=== PATIENT | female | born 1955 | race Caucasian/White ===

== ENCOUNTER 2019-08-25 05:30 | Emergency (ER) | payer MEDICARE, SELFPAY ==
[2019-08-25] VITALS (7 sets, daily range): BP systolic 141–189; BP diastolic 70–72; PULSE 62–79; RESP 16–18; TEMP 36.5; O2SAT 98–100
--- NOTE | ~2019-08-25 | CT_ITS ---
EXAMINATION: CT abdomen pelvis w con DATE: 08/25/2019 06:55 INDICATION: Right flank pain. TECHNIQUE: Computed tomography (CT) of the abdomen and pelvis was performed with 100 mL Omnipaque 350 intravenous contrast. Automated exposure control and iterative reconstruction technique were employe d. The dose-length product was 275.31 mGy-cm. COMPARISON: None. FINDINGS: The visualized portions of the lung bases demonstrate mild atelectasis. No pleural effusion . The heart size is normal. No pericardial effusion. There is moderate intrahepatic biliary duct dila tation and dilatation of the common duct to 15 mm. There are changes of cholecystectomy. The spleen, pancreas, and adrenal glands are normal. There is moderate right hydronephrosis and hydroureter. Ther e is a 2 mm stone at right ureterovesicular junction. There is asymmetric edema around right kidney. Left kidney is normal. There are no dilated loops of bowel. The appendix is normal. There are no path ologically enlarged lymph nodes. There is no free intraperitoneal fluid. There is mild lumbar spondyl osis. IMPRESSION: 1. 2 mm stone at right ureterovesicular junction with moderate right hydronephrosis and hydroureter. 2. Moderate intrahepatic and extrahepatic biliary duct dilatation status post cholecystectomy, likely not clinically significant given the normal liver function tests. Reviewed, dictated and finalized at location A. IMPRESSION: 1. 2 mm stone at right ureterovesicular junction with moderate right hydronephr osis and hydroureter. 2. Moderate intrahepatic and extrahepatic biliary duct dilatation status post c holecystectomy, likely not clinically significant given the normal liver functi on tests.
--- NOTE | ~2019-08-25 | XR_ITS ---
EXAMINATION: XR abdomen/kub 1V DATE: 08/25/2019 07:43 INDICATION: Kidney stone. TECHNIQUE: A supine view of the abdomen was obtained. COMPARISON: CT abdomen and pelvis 08/25/2019 FINDINGS: There are no dilated loops of bowel. There is contrast in the bladder. There is no visible urolithiasis. Surgical clips in the right upper quadrant are likely from cholecystectomy. IMPRESSION: 1. No visible urolithiasis. Reviewed, dictated and finalized at location A. IMPRESSION: 1. No visible urolithiasis.
--- NOTE | 2019-08-25 05:32 | ED.FEMALEGU ---
HPI - Female Genitourinary General Chief complaint: Urogenital-Female <Colleen Pena MD - Last Filed: 08/25/19 06:43> Stated complaint: Right flank pain, UTI <Colleen Pena MD - Last Filed: 08/25/19 06:43> Time Seen by Provider: 08/25/19 05:32 <Colleen Pena MD - Last Filed: 08/25/19 06:43> Source: patient and family <Colleen Pena MD - Last Filed: 08/25/19 06:43> Mode of arrival: ambulatory <Colleen Pena MD - Last Filed: 08/25/19 06:43> Limitations: no limitations <Colleen Pena MD - Last Filed: 08/25/19 06:43> History of Present Illness HPI Narrative: Patient is a 64-year-old female who presents for evaluation of right-sided flank pain and dysuria. Patient reportedly initially experienced dysuria and frequency 3 weeks ago, tried some at home remedies including Pyridium and cranberry juice which typically resolve simple urinary tract infections, and did not resolve her symptoms. Patient then went to a [facility] clinic, had blood work and urinalysis sent and 4 days later they called in a prescription for ciprofloxacin to the patient's primary care provider. The patient finished a 7-day prescription of ciprofloxacin 1 week ago, and has had no improvement since finishing that medication. Patient denies fever, chills, nausea or vomiting. She reports aching right flank pain which at times is severe in nature as well as suprapubic pain, dysuria and frequency. She denies hematuria, no history of nephrolithiasis. <Colleen Pena MD - Last Filed: 08/25/19 06:43> Related Data Home medications: Home Medications Medication Instructions Recorded Confirmed Vitamin D2 02/14/19 cyanocobalamin (vitamin B-12) 02/14/19 fludrocortisone mg 02/14/19 gabapentin 02/14/19 hydrocodone-acetaminophen 02/14/19 insulin lispro [Humalog U-100 02/14/19 Insulin] levothyroxine 02/14/19 <Colleen Pena MD - Last Filed: 06/19/20 06:43> Allergies/Adverse reactions: Allergies Allergy/AdvReac Type Severity Reaction Status Date / Time codeine AdvReac Unknown HYPOTENSION Verified 02/08/17 20:43 <Colleen Pena MD - Last Filed: 08/25/19 06:43> Review of Systems Review of Systems: Narrative: CONSTITUTIONAL: Denies fever, chills, or sweats. CARDIOVASCULAR: Denies chest pain, palpitations, or edema. RESPIRATORY: Denies cough or dyspnea. GASTROINTESTINAL: Reports suprapubic abdominal pain, denies nausea or vomiting GENITOURINARY: Reports dysuria and frequency SKIN: Denies rash or itching. MUSCULOSKELETAL: Reports right-sided back pain NEUROLOGIC: Denies headache, numbness, or weakness. <Colleen Pena MD - Last Filed: 08/25/19 06:43> [facility] Past Medical History Medical History: Medical History (Updated 08/25/19 @ 06:41 by Colleen Pena MD) Arthritis Diabetic retinopathy Fractured coccyx Gastroparesis Glaucoma Hypothyroidism Irritable bowel syndrome Peripheral neuropathy Pernicious anemia Pneumonia Postural hypotension Stage III chronic kidney disease TIA (transient ischemic attack) Type 1 diabetes <Colleen Pena MD - Last Filed: 08/25/19 06:43> Surgical History Surgical History: Surgical History (Updated 08/25/19 @ 06:00 by Colleen Pena MD) History of partial hysterectomy Hx of cholecystectomy <Colleen Pena MD - Last Filed: 08/25/19 06:43> Social History Social History: Social History (Updated 08/25/19 @ 06:00 by Colleen Pena MD) Smoking status: Current every day smoker Tobacco type: cigarettes Alcohol intake: never Substance use: never Living arrangements: with family Gender identity (if verbalized by the patient): Female <Colleen Pena MD - Last Filed: 08/25/19 06:43> Exam Narrative: Exam Narrative: GENERAL: Awake, alert, conversant HEAD: Normocephalic, atraumatic. EYES: PERRLA and EOMI. ENT: Nares clear, no rhinorrhea or epistaxis. Mucous membranes moist. NECK
[2019-08-25] MEDS: MORPHINE SULFATE 2 MG/ML INJ IV PUSH (06:03)
[2019-08-25] MEDS: ONDANSETRON INJ 4 MG/2 ML VIAL IV PUSH (06:04)
[2019-08-25] MEDS: ACETAMINOPHEN 500 MG TABLET 1000 MG PO (06:04)
[2019-08-25 06:09] LABS: Eosinophils Absolute Auto 0.1 K/mm3 (0-0.3); Eosinophils Percent Auto 2.2 % (0-4.4); Hemoglobin 11.3 g/dL (12.0-15.0); Immature Granulocyte Absolute 0.01 K/mm3 (0.00-0.031); Immature Granulocyte Percent A 0.2 % (0-0.5); Lymphocytes Absolute Auto 1.87 K/mm3 (0.9-3.2); Lymphocytes Percent Auto 45.7 % (18.3-44.2); Mean Corpuscular HGB Conc 31.4 g/dl (32-36); Mean Corpuscular Volume 92.5 fl (80-100); Mean Platelet Volume 11.3 fl (7.4-10.4); Monocytes Absolute Auto 0.4 K/mm3 (0.1-0.6); Monocytes Percent Auto 10.5 % (2.6-8.5); Neutrophils Absolute Auto 1.7 K/mm3 (1.3-6.7); Neutrophils Percent Auto 41.4 % (45.5-73.1); Platelet Count Result 212 k/mm3 (150-375); Red Blood Count 3.89 M/mm3 (4.2-5.4); Red Cell Distribution Width 14.6 % (11.5-14.5); White Blood Count 4.1 K/mm3 (4.5-10.0)
[2019-08-25 06:18] LABS: Add Urine Microscopic? YES; Appearance Urine Clear (Clear); Bilirubin Urine Negative (Negative); Blood Urine 1+ (Negative); Color Urine Yellow (Yellow); Glucose Urine UA 1+ mg/dL (Negative); Ketones Urine Negative (Negative); Leukocyte Esterase Ur Negative LEU/UL (Negative); Mucus Urine Rare /lpf; Nitrate Urine Negative (Negative); Protein Urine 2+ mg/dL (Negative); Specific Grav Ur 1.014 (1.001-1.035); Squamous Epithelial Cell Urine Few /hpf (Few); Urobilinogen Urine Negative mg/dL (<2.0)
[2019-08-25 06:21] LABS: Alanine Aminotransferase 11 U/L (4-35); Albumin Level 4.1 g/dL (3.5-5.1); Alkaline Phosphatase 118 U/L (38-126); Aspartate Amino Transferase 25 U/L (14-36); Bilirubin,Total 0.4 mg/dL (0.2-1.3); Blood Urea Nitrogen 16 mg/dL (7-17); Carbon Dioxide 26 mmol/L (22-30); Chloride 105 mmol/L (98-107); Estimated CRCL calculation 27 ml/min; Estimated Glomerular Filt Rate 33; Glucose 263 mg/dL (65-105); Potassium 3.4 mmol/L (3.4-5.0); Sodium 137 mmol/L (137-145)
[2019-08-25] MEDS: MORPHINE SULFATE 4 MG/ML INJ IV PUSH (06:28)
[2019-08-25 06:44] LABS: Lactic Acid Reflex 1.1 mmol/L (0.7-2.1)
[2019-08-25] MEDS: TAMSULOSIN HCL 0.4 MG CAPSULE PO (08:20)
--- NOTE | 2019-08-25 08:25 | WPDURCON ---
Assessment and Plan Assessment and plan (1) Right ureteral stone: Code(s): N20.1 - Calculus of ureter Status: Acute Assessment and Plan: Tiny right distal ureteral stone without ongoing signs of concurrent urinary tract infection. We will attempt to manage this as an outpatient in the expectation that she will spontaneously pass this small stone. She is to go home with instructions for hydration and oral analgesics. Follow-up arrange a follow-up visit via telehealth early next week. If she continues to have problems we will schedule right ureteroscopy with stone extraction. Urology Consult Note HPI Date Seen: 08/25/19 Primary Care Provider: Bin Almanzar, Consult Narrative Narrative: Josh Marie is a 64 year old female without prior significant urological history but who has been struggling with intermittent lower urinary tract infection symptoms over the past 2 weeks. This morning she awoke with moderately severe right flank pain radiating to her lower quadrant. She has had no fevers chills significant nausea vomiting or hematuria. Imaging in the ER revealed a 2 mm right ureteral vesicle junction stone. Review of Systems Cardiovascular: Cardiovascular: Denies chest pain, Denies lightheadedness, Denies palpitations and Denies dyspnea Respiratory: Respiratory: Denies dyspnea Gastrointestinal: Gastrointestinal: Denies diarrhea, Denies nausea and Denies vomiting Genitourinary: Genitourinary: Denies hematuria and Denies dysuria Endocrine: Endocrine: Denies palpitations PMFSH Past Medical History Medical History Arthritis Diabetic retinopathy Fractured coccyx Gastroparesis Glaucoma Hypothyroidism Irritable bowel syndrome Peripheral neuropathy Pernicious anemia Pneumonia Postural hypotension Stage III chronic kidney disease TIA (transient ischemic attack) Type 1 diabetes Surgical History Surgical History History of partial hysterectomy Hx of cholecystectomy Social History Social History Smoking status: Current every day smoker Tobacco type: cigarettes Alcohol intake: never Substance use: never Living arrangements: with family Gender identity (if verbalized by the patient): Female Meds Home Medications and Allergies Home Medications Medication Instructions Recorded Confirmed Type Vitamin D2 02/14/19 History cyanocobalamin (vitamin B-12) 02/14/19 History fludrocortisone mg 02/14/19 History gabapentin 02/14/19 History hydrocodone-acetaminophen 02/14/19 History insulin lispro [Humalog U-100 02/14/19 History Insulin] levothyroxine 02/14/19 History hydrocodone-acetaminophen 1 tablet PO Q4H PRN #12 tablet 08/25/19 Rx tamsulosin [Flomax] 0.4 mg PO DAILY #5 cap 08/25/19 Rx Allergies Allergy/AdvReac Type Severity Reaction Status Date / Time codeine AdvReac Unknown HYPOTENSION Verified 02/08/17 20:43 Vital Signs Vital Signs - 24 hr 08/25/19 05:41 08/25/19 06:33 08/25/19 06:34 Temperature 97.7 F 97.7 F 97.7 F Pulse Rate 79 Respiratory Rate 18 Blood Pressure 189/71 H Pulse Oximetry 99 08/25/19 06:48 08/25/19 06:58 08/25/19 07:30 Temperature 97.7 F Pulse Rate 62 72 Respiratory Rate 16 16 Blood Pressure 181/72 H 141/72 H Pulse Oximetry 98 99 Exam Const: General: no acute distress Resp: Effort & Inspection: normal respiratory effort GI: Inspection: non-distended GI Palp: No abdominal tenderness and No Guarding due to palpation present (GI) Auscultation: normal bowel sounds Results Labs CBC & Chem 7: 08/25/19 06:02 08/25/19 06:02 Labs: Short CBC 08/25/19 Range/Units 06:02 WBC 4.1 L (4.5-10.0) K/mm3 Hgb 11.3 L (12.0-15.0) g/dL Hct 36.0 L (37.0-47.0) % Plt Count 212 (150-375) k/mm3
== END 2019-08-25 08:20 | disposition home or self-care (01) ==
PROVIDERS: Emergency Medicine; Emergency Provider Emergency Medicine; PCP Internal Medicine
DX: N13.2 Hydronephrosis with renal and ureteral calculous obstruction (principal); M19.90 Unspecified osteoarthritis, unspecified site; E10.319 Type 1 diabetes mellitus with unspecified diabetic retinopathy without macular edema; E10.43 Type 1 diabetes mellitus with diabetic autonomic (poly)neuropathy; E10.22 Type 1 diabetes mellitus with diabetic chronic kidney disease; E10.42 Type 1 diabetes mellitus with diabetic polyneuropathy; K31.84 Gastroparesis; N18.3 Chronic kidney disease, stage 3 (moderate); Z79.4 Long term (current) use of insulin; K58.9 Irritable bowel syndrome, unspecified; H40.9 Unspecified glaucoma; E03.9 Hypothyroidism, unspecified; F17.210 Nicotine dependence, cigarettes, uncomplicated; Z86.73 Personal history of transient ischemic attack (TIA), and cerebral infarction without residual deficits
CPT/HCPCS: 36415; 74018; 74177; 80053; 81001; 83605; 85025; 87040; 96361; 96365; 96375; 99284; A9270; J0696; J2270; J2405; J7030; Q9967

== ENCOUNTER 2020-02-06 18:48 | Observation (INO) | payer MEDICARE, SELFPAY ==
--- NOTE | ~2020-02-06 | CT_ITS ---
EXAMINATION: CT abdomen pelvis w con DATE: 02/06/2020 23:26 INDICATION: Abdominal pain TECHNIQUE: Computed tomography (CT) of the abdomen and pelvis was performed with 100 mL Omnipaque-350 intravenous contrast. Automated exposure control and iterative reconstruction technique were employe d. The dose-length product was 214.08 mGy-cm. COMPARISON: 08/25/2019 FINDINGS: Mild bibasilar atelectasis, left greater than right. Heart size is normal. No pericardial or pleural effusion. No significant interval change in moderate intra and extrahepatic biliary ductal dilation w ith the common bile duct dilated to 13 mm. This may be related to prior cholecystectomy with surgical clips at the gallbladder fossa. New geographic regions of absent enhancement along the caudal and an terior margin of the spleen consistent with splenic infarcts. No appreciable associated atrophy sugge sting this is relatively acute. Contrast is seen within the splenic artery although there is some ath erosclerotic plaque along the midportion of the tortuous artery. Pancreas, bilateral adrenal glands a nd kidneys are normal. Bowels including the appendix are normal. Bladder is normal. The uterus is not identified and has likely been surgically resected. Bilateral adnexa are unremarkable. No free intra peritoneal gas or fluid. No pathologically enlarged abdominal or pelvic lymphadenopathy. There is linda cified atherosclerosis of the aorta and many of the other arteries. Sacralized L5 segment. IMPRESSION: 1. 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 2. Unchanged moderate intra and extra hepatic biliary ductal dilation likely related to prior cholecy stectomy. Reviewed, dictated and finalized at location A. K PRESS OPERATOR IMPRESSION: 1. 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 2. Unchanged moderate intra and extra hepatic biliary ductal dilation likely re lated to prior cholecystectomy.
--- NOTE | ~2020-02-06 | CT_ITS ---
EXAMINATION: CTA chest abdomen pelvis DATE: 02/09/2020 14:22 INDICATION: Splenic infarct. TECHNIQUE: Computed tomographic angiography (CTA) of the chest, abdomen, and pelvis was performed wit h 100 mL Omnipaque-350 intravenous contrast. Automated exposure control and iterative reconstruction technique were employed. The dose-length product was 290.35 mGy-cm. Maximum intensity projection 3D-r econstructions of the aorta and other arteries were constructed by the technologist on a separate wor kstation. COMPARISON: CT abdomen and pelvis 02/06/2020, 08/25/19 FINDINGS: CHEST CTA: There is mild atelectasis in the lungs. There is mild scarring at the lung apices. There is a cluster of nodules measuring up to 4 mm in left upper lobe, likely benign. There is a trace left pleural eff usion. The heart size is normal. There are coronary artery calcifications. No pericardial effusion. T here is no pulmonary embolus. There is mild aortic atherosclerosis. ABDOMEN AND PELVIS CTA: There is mild intrahepatic biliary duct dilatation, and the common duct is dilated to 15 mm, stable f rom 08/25/19 and likely not clinically significant give the normal total bilirubin and alkaline phosph atase. There are changes of cholecystectomy. There are peripheral areas of low-attenuation in the spl een, consistent with infarcts. The pancreas and adrenal glands are normal. There is cortical thinning of the kidneys. There are no dilated loops of bowel. The appendix is normal. There are no pathologic ally enlarged lymph nodes. There is no free intraperitoneal fluid. There is mild aortic atheroscleros is. There is no significant stenosis of the celiac axis, superior mesenteric artery, renal arteries, or inferior mesenteric artery. There is mild lumbar spondylosis. IMPRESSION: 1. Splenic infarcts, stable from 02/06/20. Reviewed, dictated and finalized at location A. RIAL FLOW ENGINEER
[2020-02-06 19:37] VITALS: BP 138/67; PULSE 86; RESP 17; TEMP 36.2; O2SAT 96
[2020-02-06 19:54] LABS: Basophils Percent Auto 0.1 % (0.2-1.2); Eosinophils Percent Auto 0.4 % (0-4.4); Hematocrit 37.5 % (37.0-47.0); Hemoglobin 12.1 g/dL (12.0-15.0); Immature Granulocyte Absolute 0.03 K/mm3 (0.00-0.031); Immature Granulocyte Percent A 0.4 % (0-0.5); Lymphocytes Absolute Auto 1.56 K/mm3 (0.9-3.2); Lymphocytes Percent Auto 20.4 % (18.3-44.2); Mean Corpuscular HGB Conc 32.3 g/dl (32-36); Mean Corpuscular Hemoglobin 30.7 pg (26-34); Mean Corpuscular Volume 95.2 fl (80-100); Mean Platelet Volume 11.3 fl (7.4-10.4); Monocytes Absolute Auto 0.7 K/mm3 (0.1-0.6); Monocytes Percent Auto 9.7 % (2.6-8.5); Neutrophils Absolute Auto 5.3 K/mm3 (1.3-6.7); Platelet Count Result 152 k/mm3 (150-375); Red Blood Count 3.94 M/mm3 (4.2-5.4); Red Cell Distribution Width 12.6 % (11.5-14.5); White Blood Count 7.6 K/mm3 (4.5-10.0)
[2020-02-06 20:01] LABS: Alanine Aminotransferase 9 U/L (4-35); Albumin Level 3.8 g/dL (3.5-5.1); Alkaline Phosphatase 99 U/L (38-126); Anion Gap 3 mmol/L (8-16); Aspartate Amino Transferase 29 U/L (14-36); Bilirubin,Total 0.5 mg/dL (0.2-1.3); Blood Urea Nitrogen 20 mg/dL (7-17); Calcium 9.2 mg/dL (8.4-10.2); Carbon Dioxide 31 mmol/L (22-30); Chloride 106 mmol/L (98-107); Estimated CRCL calculation 29 ml/min; Estimated Glomerular Filt Rate 38; Glucose 102 mg/dL (65-105); Potassium 4.2 mmol/L (3.4-5.0); Sodium 140 mmol/L (137-145)
[2020-02-06 20:08] LABS: Lipase < 10 U/L (23-300)
[2020-02-06 20:11] LABS: Add Urine Microscopic? YES; Appearance Urine Clear (Clear); Bacteria Urine Trace /hpf; Bilirubin Urine Negative (Negative); Blood Urine Negative (Negative); Color Urine Yellow (Yellow); Glucose Urine UA Negative (Negative); Ketones Urine Negative (Negative); Leukocyte Esterase Ur Negative LEU/UL (Negative); Nitrate Urine Positive (Negative); Protein Urine 2+ mg/dL (Negative); Specific Grav Ur 1.015 (1.001-1.035); Squamous Epithelial Cell Urine Occasional /hpf (Few); Urobilinogen Urine Negative mg/dL (<2.0)
[2020-02-06 22:34] VITALS: BP 126/68; PULSE 71; RESP 18; TEMP 36.7; O2SAT 99
--- NOTE | 2020-02-06 23:34 | ED.GENADULT ---
HPI - General Adult General Chief complaint: Abdominal Pain Stated complaint: Left ABD pain since yesterday Time Seen by Provider: 02/06/20 22:50 Source: patient History of Present Illness HPI narrative: Patient is a 64 y/o female complaining of left upper abdominal pain starting yesterday. She rates her pain as 10/10. Pain medication helps with her pain slightly. She states that her pain is sharp with no radiation. She has no fever, vomiting, diarrhea or dysuria. Related Data Home Medications Medication Instructions Recorded Confirmed Vitamin D2 1 tablet BYMOUTH DAILY 02/14/19 02/07/20 cyanocobalamin (vitamin B-12) 1,000 mcg IM MONTHLY 02/14/19 02/07/20 gabapentin 600 mg PO TID 02/14/19 02/07/20 hydrocodone-acetaminophen 1 tablet PO Q6H PRN 02/14/19 02/07/20 insulin lispro [Humalog U-100 See Protocol SUBCUT PRN PRN 02/14/19 02/07/20 Insulin] levothyroxine 100 mcg PO DAILY 02/14/19 02/07/20 ferrous sulfate 324 mg PO DAILY 02/07/20 02/07/20 midodrine 5 mg PO BID 02/07/20 02/07/20 sodium chloride 1 g PO BID 02/07/20 02/07/20 Allergies Allergy/AdvReac Type Severity Reaction Status Date / Time codeine AdvReac Unknown HYPOTENSION Verified 02/08/17 20:43 Review of Systems Constitutional: Constitutional: Denies chills, Denies fever(s), Denies headache(s) and Denies weakness Eyes: Eyes: Denies blurry vision ENT: Denies headache(s) and Denies neck pain Cardiovascular: Cardiovascular: Denies chest pain and Denies dyspnea Respiratory: Respiratory: Denies cough and Denies dyspnea Gastrointestinal: Gastrointestinal: Reports abdominal pain, Denies diarrhea, Denies nausea and Denies vomiting Genitourinary: Genitourinary: Denies hematuria and Denies dysuria Musculoskeletal: Musculoskeletal: Denies back pain and Denies neck pain Neurologic: Denies headache(s) and Denies weakness [facility] Past Medical History Medical History Arthritis Diabetic retinopathy Dupuytren contracture Fractured coccyx Gastroparesis Glaucoma History of renal stone Hypothyroidism Multiple system atrophy Peripheral neuropathy Pernicious anemia Pneumonia Postural hypotension Stage III chronic kidney disease TIA (transient ischemic attack) Type 1 diabetes Surgical History Surgical History History of hand surgery History of partial hysterectomy vaginal partial hysterectomy Hx of cholecystectomy Laparoscopic cholecystectomy in 2004 Family History Family History Father Acute myocardial infarction Bladder cancer Mother Diabetes mellitus Sibling Diabetes mellitus Sibling Refractory anemia due to myelodysplastic syndrome Social History Social History Social History: Mrs. Marie lives at home with her in [place], [place]. 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 She is a current 2 pack per week smoker. She reports very infrequent alcohol use (1 glass of wine/year) and denies illicit substance use. She wishes to be a full code and she has designated her , Mahin Marie, and her son, Dennys Combs, as her surrogate medical decision makers. Smoking packs per day: 0.5 Smoking cigarettes per day: 10.0 Smoking status: Current every day smoker Tobacco type: cigarettes Alcohol intake: current Alcohol use details: Very infrequent - 1 glass of wine per year Substance use: never Substance use type: does not use Gender identity (if verbalized by the patient): Female Spiritual care concerns: No Exam Const: General: no acute distress and well developed Orientation/consciousness: oriented to person, oriented to place, oriented to time and patient oriented x3 HENMT: Head: normocephalic Ears: external ears normal General nose exam: Normal external nose present Eyes: General: appe
[2020-02-06] MEDS: KETOROLAC 15 MG/ML VIAL (*BKC) IV PUSH (23:44)
[2020-02-06] MEDS: SODIUM CHLORIDE 0.9% IV 1,000 ML 999 ML IV CONT (23:59)
[2020-02-06] MEDS: fentaNYL CITRATE INJ (*CRX) 100 MCG/2 ML VIAL 50 MCG IV PUSH (23:59)
[2020-02-07] VITALS (13 sets, daily range): BP systolic 118–155; BP diastolic 53–76; PULSE 58–91; RESP 16–18; TEMP 36.5–37.1; O2SAT 96–100; BMI 19.4
--- NOTE | 2020-02-07 | ECHO_ITS ---
Patient Info Name: Josh Marie Age: 64 years : 1955 Gender: Female Ht: 62 in Wt: 106 lbs BSA: 1.45 m2 HR: 70 bpm BP: 155 / 70 mmHg Heart Rhythm: Sinus Rhythm Technical Quality: Good Exam Date: 02/07/2020 1:30 PM Exam Location: [facility] Patient Status: Inpatient Admit Date: 02/07/2020 Staff Ordering Physician: Batsheva Pollock PA-C Field Agent: Justice Baeza RDCS Attending Provider: Batsheva Pollock PA-C Referring Physician: Phill ANDRADE; Exam Type: CA echo doppler color flow Study Info Indications I50.9 - Heart failure, unspecified Complete two-dimensional, color flow and Doppler transthoracic echocardiogram is performed. Strain analysis performed. History/Risk Factors Splenic artery infarct; CKD3, T1DM, Orthostatic HoTN. Summary 1. Left ventricular systolic function is normal, estimated at 55-60%. 2. There is mildly increased left ventricular wall thickness. 3. The left ventricular diastolic function is grade II diastolic dysfunction. 4. There is no aortic valve stenosis. 5. There is trace mitral valve regurgitation. 6. There is trace tricuspid valve regurgitation. 7. Mild pulmonary hypertension, estimated pulmonary arterial systolic pressure is 36 mmHg. Left Ventricle Left ventricular chamber dimension is normal. Left ventricular systolic function is normal, estimated at 55-60%. There is mildly increased left ventricular wall thickness. The left ventricular diastolic function is grade II diastolic dysfunction. Global longitudinal strain is normal at -21 %. Right Ventricle Right ventricular chamber dimension is normal. Right ventricular systolic function is normal. Left Atria Left atrial chamber dimension is normal. Right Atria Right atrial chamber dimension is normal. Aortic Valve The aortic valve is not well visualized. There is no aortic valve stenosis. There is no aortic valve regurgitation. Pulmonic Valve The pulmonic valve is not well visualized. There is trace pulmonic regurgitation. Mitral Valve The mitral valve has normal leaflets. There is trace mitral valve regurgitation. The mitral valve annulus is mildly calcified. Tricuspid Valve The tricuspid valve leaflets are normal. There is trace tricuspid valve regurgitation. Mild pulmonary hypertension, estimated pulmonary arterial systolic pressure is 36 mmHg. Pericardium/Pleural The pericardium appears normal. There is trivial pericardial effusion. Inferior Vena Cava Normal inferior vena cava with >50% collapse upon inspiration consistent with normal right atrial pressure, 5 mmHg. Aorta The aortic root size at the sinus of Valsalva is normal. Left Ventricular Outflow Tract Name Value Normal LVOT 2D LVOT Diameter 2.0 cm LVOT Doppler LVOT Peak Gradient 6 mmHg LVOT Mean Gradient 4 mmHg LVOT VTI 31 cm LVOT VTI/AV VTI Ratio 1.0 LVOT Stroke Volume 95 ml LVOT CO 6.3 l
--- NOTE | 2020-02-07 01:34 | PC.NURSE ---
SPOKE WITH DR WILSON CONCERNING THE PATIENTS CONCERNS ABOUT HER BLOOD SUGAR. AMP D50 ORDERED AND PATIENT TO BE INSTRUCTED TO TURN OFF PER PUMP.
--- NOTE | 2020-02-07 01:44 | ADMGEN ---
This patient, Josh Marie, was admitted to Medical Room 261-01. Patient/family oriented to hospital policies and general routines including ID bracelet, bed and alarms, visiting hours, pain management, procedures, bathroom and other care routines, personal items, smoking policy, room service/diet, and visiting hours. Information on how to activate the Rapid Response Team has been discussed. Patient/Family are encouraged to report perceived risks to care and to ask questions if they do not understand what they are told or what they should do.
[2020-02-07] MEDS: DEXTROSE 50% 25 GM/50 ML SYRINGE IV PUSH ×3 (01:58→16:31)
[2020-02-07] MEDS: SODIUM CHLORIDE 0.9% IV 1,000 ML 125 ML IV CONT ×2 (02:24→17:19)
[2020-02-07] MEDS: MORPHINE SULFATE (*CRX) 4 MG/ML INJ IV PUSH (07:00)
--- NOTE | 2020-02-07 07:30 | ECG_ITS ---
Measurements Intervals [place] Rate: 71 P: -12 FL: 133 QRS: 42 QRSD: 74 T: 45 QT: 399 QTc: 436 Interpretive Statements SINUS RHYTHM NORMAL ECG Electronically Signed On 02-07-2020 9:58:56 SENIOR HARDWARE DESIGN ENGINEER by Slim Del Real D.O.
[2020-02-07 08:29] LABS: Basophils Percent Auto 0.2 % (0.2-1.2); Eosinophils Absolute Auto 0.1 K/mm3 (0-0.3); Eosinophils Percent Auto 1.1 % (0-4.4); Hematocrit 34.3 % (37.0-47.0); Hemoglobin 10.9 g/dL (12.0-15.0); Immature Granulocyte Absolute 0.02 K/mm3 (0.00-0.031); Immature Granulocyte Percent A 0.4 % (0-0.5); Lymphocytes Absolute Auto 1.63 K/mm3 (0.9-3.2); Lymphocytes Percent Auto 29.6 % (18.3-44.2); Mean Corpuscular HGB Conc 31.8 g/dl (32-36); Mean Corpuscular Hemoglobin 30.6 pg (26-34); Mean Corpuscular Volume 96.3 fl (80-100); Mean Platelet Volume 11.3 fl (7.4-10.4); Monocytes Absolute Auto 0.6 K/mm3 (0.1-0.6); Monocytes Percent Auto 10.7 % (2.6-8.5); Neutrophils Absolute Auto 3.2 K/mm3 (1.3-6.7); Platelet Count Result 122 k/mm3 (150-375); Red Blood Count 3.56 M/mm3 (4.2-5.4); Red Cell Distribution Width 12.5 % (11.5-14.5); White Blood Count 5.5 K/mm3 (4.5-10.0)
[2020-02-07 08:42] LABS: Alanine Aminotransferase 7 U/L (4-35); Albumin Level 3.1 g/dL (3.5-5.1); Alkaline Phosphatase 104 U/L (38-126); Anion Gap 4 mmol/L (8-16); Aspartate Amino Transferase 25 U/L (14-36); Bilirubin,Total 0.6 mg/dL (0.2-1.3); Blood Urea Nitrogen 16 mg/dL (7-17); Calcium 8.6 mg/dL (8.4-10.2); Carbon Dioxide 28 mmol/L (22-30); Chloride 105 mmol/L (98-107); Estimated CRCL calculation 33 ml/min; Estimated Glomerular Filt Rate 46; Glucose 223 mg/dL (65-105); Potassium 4.2 mmol/L (3.4-5.0); Sodium 137 mmol/L (137-145)
[2020-02-07 08:43] LABS: Lactic Acid Reflex 0.7 mmol/L (0.7-2.1)
--- NOTE | 2020-02-07 09:11 | PM.IMHP ---
H&P: HPI History of Present Illness Date/Time: 02/07/20 09:11 Chief complaint: spleen infarct Narrative: Mrs. Marie is a 64 year old female with PMH significant for T1DM with gastroparesis and diabetic retinopathy, multiple system atrophy with orthostatic hypotension, hypothyroidism, tobacco dependence, and anemia who presented to the emergency department 02/06/20 for the evaluation of severe LUQ pain. She reported that pain started Wednesday. Pain is sharp, constant, and worse with deep breathing and coughing/sneezing. Pain radiates to the left side/back. There is no association to eating or position change. She has been able to eat and is not having any nausea or vomiting. She denies chest pain, pleuritic pain, and dyspnea. She denies palpitations. She denies change in bowels. Initial workup in the emergency department was notable for CT abd/pelvis which demonstrated new geographic regions of absent enhancement along the caudal and anterior margin of the spleen consistent with splenic infarcts which appear acute. The splenic artery has atherosclerotic plaque in the midportion of the tortuous artery. She was admitted to the hospitalist service under observation. General surgery was consulted. She denies a hx of clotting disorders. She has no prior hx of VTE. She denies hx of CVA and PR. She continues to smoke 2 packs of cigarettes per week. She denies subjective fever and chills. She denies weight change. She denies night sweats. She does note urinary frequency and urinalysis demonstrated nitrates and 4-6 WBC. Review of Systems Review of Systems: Narrative: Constitutional: Denies fever, chills, fatigue, recent sick contacts, and appetite change. Eyes: Reports diabetic retinopathy and receives routine injections. ENT: Denies change in hearing, nasal congestion, dysphagia, odynophagia, and sore throat. Cardiovascular: Denies palpitations and chest pain. Respiratory: Denies cough and shortness of breath. Gastrointestinal: Reports abdominal pain as above. Denies nausea and vomiting. Diet is fine. Genitourinary: Denies dysuria, frequency, urgency, and hesitancy. Denies hematuria. Skin: Denies lesions and wounds. Neurologic: Denies focal weakness, paresthesias, confusion, and speech change. Reports occasional headache. Psychiatric: Denies mood change. Hematologic: Denies easy bruising and bleeding. Reports no prior hx of clotting disorder. All systems reviewed & are unremarkable except as noted in HPI and below PMFSH Past Medical History Medical History Arthritis Diabetic retinopathy Dupuytren contracture Fractured coccyx Gastroparesis Glaucoma History of renal stone Hypothyroidism Multiple system atrophy Peripheral neuropathy Pernicious anemia Pneumonia Postural hypotension Stage III chronic kidney disease TIA (transient ischemic attack) Type 1 diabetes Surgical History Surgical History History of hand surgery History of partial hysterectomy vaginal partial hysterectomy Hx of cholecystectomy Laparoscopic cholecystectomy in 2004 Family History Family History Father Acute myocardial infarction Bladder cancer Mother Diabetes mellitus Sibling Diabetes mellitus Sibling Refractory anemia due to myelodysplastic syndrome Social History Social History Social History: Mrs. Marie lives at home with her in [place], [place]. 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 She is a current 2 pack per week smoker. She reports very infrequent alcohol use (1 glass of wine/year) and denies illicit substance use. She wishes to be a full code and she has designated her , Mahin Marie, and her son, Dennys Combs, as her surrogate medical decision makers. Smoking packs per day: 0.5 Smoking cigarettes per
[2020-02-07 10:06] LABS: Glucose Point of Care 176 (65-105)
--- NOTE | 2020-02-07 10:20 | PM.CNGS ---
Assessment and Plan Assessment and plan (1) Splenic infarct: Code(s): D73.5 - Infarction of spleen Status: Acute Assessment and Plan: CT scan reviewed and discussed with the patient in detail. There is evidence of small splenic infarcts, likely acute. Etiology of the infarct is unclear at this time. Also noted on the CT scan is some atherosclerotic plaque along the midportion of the tortuous artery, as well as atherosclerosis of the aorta and many of the other arteries. This could potentially be the cause for infarct. Echo has been ordered and is pending, although cardioembolic source seems less likely. I discussed the case with the Hospitalist, who is also planning a work-up for malignancy that would cause a hypercoagulable state, as well as ordering labs to look for coagulopathies. The Hospitalist also spoke with vascular surgery who recommended anticoagulation and Cardiology consultation, but no surgical intervention. I discussed the patient's case and plan of care with Dr. Guajardo. We would recommend anticoagulating with full-dose Lovenox initially. From our standpoint, there is no indication for surgical intervention at this time. Would continue with PRN analgesics for pain control and continue to work-up the source of the infarct. Also, okay to allow patient to have a diet from our standpoint. (2) Urinary tract infection: Code(s): N39.0 - Urinary tract infection, site not specified Status: Acute Assessment and Plan: UA noted. Patient symptomatic. No urine culture reflexed. Management per Hospitalist, started on oral antibiotics. (3) Anemia: Code(s): D64.9 - Anemia, unspecified Status: Chronic Assessment and Plan: Stable, continue to monitor. (4) Type 1 diabetes: Code(s): E10.9 - Type 1 diabetes mellitus without complications Status: Acute Assessment and Plan: Currently using an insulin pump at home, which is continued here. (5) Gastroparesis: Code(s): K31.84 - Gastroparesis Status: Acute (6) Stage III chronic kidney disease: Code(s): N18.3 - Chronic kidney disease, stage 3 (moderate) Status: Acute Assessment and Plan: Creatinine 1.4 on admission and 1.2 today. Receiving IV fluids. Will have to take this into consideration if planning for further imaging with contrast. Management per the Hospitalist. Additional Plan Thank you for allowing us to see the patient in consultation and we will continue to follow along with you. Discussed the plan of care with Dr. Guajardo. History of Present Illness Consult details Consult date: 02/07/20 Reason for consult: other (Splenic infarct) Requesting physician: Jenny Jones MD Narrative: This is a 64-year-old female with a history of type 1 diabetes mellitus with gastroparesis, diabetic retinopathy, and neuropathy, hypothyroidism, anemia, and tobacco abuse. She presented to the emergency department last night with complaints of left-sided abdominal pain. She reports first noticing this pain on Wednesday, two days ago. She initially thought this was from her gastroparesis, therefore she started taking laxatives. After having multiple bowel movements, the pain did not subside. The abdominal pain was unrelenting and she eventually decided to come to the emergency department for further evaluation last night. CT scan of the abdomen and pelvis showed likely relatively acute splenic infarcts. Creatinine slightly elevated at 1.4 and is now 1.2 today. The patient was admitted to the Hospitalist service and our service was consulted by the ED physician for the splenic infarct. The patient is now seen on the medical floor. She reports that her abdominal pain improves some but then intensifies again. Denies nausea, vomiting, fever chills, changes in bowel habits, or previous blood clots. She denies ever having this pain in the past. She denies a family history of coagulopathies. She denies a history of atrial fibr
[2020-02-07] MEDS: HYDROcodone/acetaminophen (*CRX) 10-325 MG TABLET 1 TAB PO ×2 (10:37→17:23)
[2020-02-07] MEDS: ENOXAPARIN 60 MG/0.6 ML SYRINGE 48 MG SUB-Q ×2 (10:38→20:58)
[2020-02-07] MEDS: ASPIRIN 81 MG ENTERIC TABLET PO (10:38)
[2020-02-07] MEDS: MIDODRINE HCL 2.5 MG TABLET 5 MG PO ×2 (10:39→16:55)
[2020-02-07] MEDS: LEVOTHYROXINE SODIUM 100 MCG TABLET PO (10:39)
[2020-02-07] MEDS: GABAPENTIN 300 MG CAPSULE 600 MG PO ×2 (10:40→16:55)
[2020-02-07 11:12] LABS: Cholesterol 115 mg/dL (0-200); HDL Direct 40 mg/dL; Triglycerides 97 mg/dL (<150)
[2020-02-07 11:22] LABS: LDL Cholesterol Direct 45 mg/dL
[2020-02-07] MEDS: GLUCOSE ORAL GEL 15 GM OF GLUCSE IN 37.5 GM TUBE PO (11:58)
[2020-02-07] MEDS: CEFDINIR 300 MG CAPSULE PO ×2 (12:04→20:58)
[2020-02-07 13:21] LABS: Glucose Point of Care 39 (65-105)
[2020-02-07 13:21] LABS: Glucose Point of Care 208 (65-105)
[2020-02-07 13:21] LABS: Glucose Point of Care 49 (65-105)
--- NOTE | 2020-02-07 14:05 | PM.CNCAR ---
Assessment and Plan Assessment and plan (1) Splenic infarct: Code(s): D73.5 - Infarction of spleen Status: Acute Assessment and Plan: Etiology unclear, rare event. CT suggestion of atherosclerosis within splenic artery. Possible focal plaque rupture with thromboembolic sequelae, however, highly unusual. Clinically, unlikely to be cardioembolic mechanistically. Discussed CTA for further anatomic clarification, yet may not globe changer unless more extensive atherosclerosis identified. ASA 81mg daily but need to monitor platelet count. Management not well established, although not unreasonable to anticoagulate for 24-48 hours as tolerated. Check lipids, statin therapy as tolerated if atherosclerotic contribution suspected. NO clear role for percutaneous intervention, surgery has evaluated the pt and does see indication for intervention. Supportive care, pain control. 12 lead EKG normal. cardiac monitor technician to assess for asymptomatic A.Fib/flutter although unlikely cause, but possible. 2D Echo. (2) Type 1 diabetes: Code(s): E10.9 - Type 1 diabetes mellitus without complications Status: Acute Assessment and Plan: Per primary service. (3) Stage III chronic kidney disease: Code(s): N18.3 - Chronic kidney disease, stage 3 (moderate) Status: Acute Assessment and Plan: stable, monitor closely with contrast administration. Hydration. (4) Abdominal pain: Code(s): R10.9 - Unspecified abdominal pain Status: Acute Assessment and Plan: appears secondary to splenic infarction (5) Tobacco abuse: Code(s): Z72.0 - Tobacco use Status: Acute Assessment and Plan: Smoking cessation counseling performed. (6) Hypothyroidism: Code(s): E03.9 - Hypothyroidism, unspecified Status: Chronic Assessment and Plan: TSH <0.02 09/2019. Repeat TSH. management per primary service. History of Present Illness History of Present Illness Consult date/time: Date of service: 02/07/20 14:05 This is a cardiology consultation at the request of Batsheva Pollock with the [facility] for my opinion regarding splenic infarction. Requesting physician: Batsheva Pollock PA-C Consult reason: Other ( splenic infarction) Reason For Visit: spleen infarct Narrative: patient is a pleasant yet rather complicated 64-year-old female with a past medical history significant for type 1 diabetes mellitus with gastric paresis, peripheral neuropathy, diabetic retinopathy, multiple system atrophy with orthostatic hypotension, hypothyroidism, tobacco abuse, chronic kidney disease stage 2 to 3 who was in her usual state of health when beginning Wednesday she developed sharp constant pain somewhat worse with deep breathing in the upper left abdomen which was progressive becoming quite severe prompting her to present to the emergency department for further evaluation. There is no change with meals or position. No chest pain or shortness of breath. No fevers, chills, nausea or vomiting. She has never experienced pain similar to this. CT abdomen pelvis with contrast in the emergency department revealed absent enhancement in the caudal and anterior margin of the spleen consistent with recent infarct which was previously not noted August 2019 CT contrast and abdomen which the spleen was referred to was normal. Splenic artery was noted to be atherosclerotic with tortuosity. Surgery was consulted as well. She has no history of DVT/ PE, bleeding complications, coronary disease, myocardial infarction. She continues to have abdominal pain. The primary service I consulted with vascular surgery at an outside hospital who recommended systemic anticoagulation now with echocardiogram and telemetry. Patient denies syncope, palpitations, history of atrial fibrillation/ atrial flutter, lower extremity edema. Review of Systems Review of Systems: All systems reviewed & are unremarkab
--- NOTE | 2020-02-07 16:30 | PC.NURSE ---
Patients Basal rate on her minimed medtronic insulin pump was 0.2 units between 2951-2107 0.95 units between 6027-8959 0.7 units between 7474-3227 This was adjusted due to the patient having 2 hypoglycemia episodes. Basal rate is now 0.5 units between 9439-2810 and 0.2 units from 5021-4815 Patient also bolus doses 1 unit for every 45 grams of carbs normally. Will continue to closely monitor blood glucose.
[2020-02-07] MEDS: FERROUS SULFATE 324 MG TABLET PO (16:55)
[2020-02-07 17:02] LABS: Glucose Point of Care 124 (65-105)
[2020-02-07 17:03] LABS: Glucose Point of Care 40 (65-105)
[2020-02-08] VITALS (11 sets, daily range): BP systolic 139–173; BP diastolic 58–73; PULSE 60–72; RESP 14–18; TEMP 36.5–37.1; O2SAT 95–98
[2020-02-08] MEDS: HYDROcodone/acetaminophen (*CRX) 10-325 MG TABLET 1 TAB PO ×3 (05:00→16:48)
[2020-02-08] MEDS: LEVOTHYROXINE SODIUM 100 MCG TABLET PO (05:00)
[2020-02-08 05:47] LABS: Basophils Percent Auto 0.2 % (0.2-1.2); Eosinophils Absolute Auto 0.1 K/mm3 (0-0.3); Hematocrit 30.2 % (37.0-47.0); Hemoglobin 9.6 g/dL (12.0-15.0); Immature Granulocyte Absolute 0.02 K/mm3 (0.00-0.031); Immature Granulocyte Percent A 0.4 % (0-0.5); Immature Platelet Fraction Pct 6.1 % (0.9-11.2); Lymphocytes Absolute Auto 1.78 K/mm3 (0.9-3.2); Mean Corpuscular HGB Conc 31.8 g/dl (32-36); Mean Corpuscular Hemoglobin 30.4 pg (26-34); Mean Corpuscular Volume 95.6 fl (80-100); Mean Platelet Volume 11.7 fl (7.4-10.4); Monocytes Absolute Auto 0.7 K/mm3 (0.1-0.6); Monocytes Percent Auto 13.1 % (2.6-8.5); Neutrophils Absolute Auto 2.4 K/mm3 (1.3-6.7); Neutrophils Percent Auto 48.3 % (45.5-73.1); Platelet Count Result 110 k/mm3 (150-375); Red Blood Count 3.16 M/mm3 (4.2-5.4); Red Cell Distribution Width 12.3 % (11.5-14.5)
[2020-02-08 06:02] LABS: Alanine Aminotransferase 15 U/L (4-35); Albumin Level 2.8 g/dL (3.5-5.1); Alkaline Phosphatase 122 U/L (38-126); Anion Gap 3 mmol/L (8-16); Aspartate Amino Transferase 37 U/L (14-36); Bilirubin,Total 0.3 mg/dL (0.2-1.3); Blood Urea Nitrogen 15 mg/dL (7-17); Calcium 8.2 mg/dL (8.4-10.2); Carbon Dioxide 26 mmol/L (22-30); Chloride 110 mmol/L (98-107); Estimated CRCL calculation 31 ml/min; Estimated Glomerular Filt Rate 42; Glucose 148 mg/dL (65-105); Potassium 4.5 mmol/L (3.4-5.0); Sodium 139 mmol/L (137-145)
[2020-02-08 06:45] LABS: Hemoglobin A1C 7.4 % (<5.7)
[2020-02-08 07:12] LABS: Thyroid Stimulating Hormone Reflex < 0.015 uIU/mL (0.465-4.68)
[2020-02-08 07:38] LABS: Free T4 Free Thyroxine Reflex 1.68 ng/dL (0.78-2.19)
[2020-02-08 08:51] LABS: Glucose Point of Care 140 (65-105)
[2020-02-08 08:57] LABS: Total Triiodothyronine (T3) 1.05 NG/ML (0.97-1.69)
[2020-02-08] MEDS: ONDANSETRON INJ 4 MG/2 ML VIAL IV PUSH ×2 (09:21→13:29)
[2020-02-08] MEDS: GABAPENTIN 300 MG CAPSULE 600 MG PO ×2 (10:31→16:39)
[2020-02-08] MEDS: ENOXAPARIN 60 MG/0.6 ML SYRINGE 48 MG SUB-Q ×2 (10:32→20:34)
[2020-02-08] MEDS: DOCUSATE SODIUM 100 MG CAPSULE PO ×2 (10:32→20:35)
[2020-02-08] MEDS: CEFDINIR 300 MG CAPSULE PO ×2 (10:32→20:35)
[2020-02-08] MEDS: MIDODRINE HCL 2.5 MG TABLET 5 MG PO ×2 (10:33→16:40)
[2020-02-08] MEDS: FERROUS SULFATE 324 MG TABLET PO (10:34)
[2020-02-08 11:39] LABS: Glucose Point of Care 136 (65-105)
--- NOTE | 2020-02-08 14:20 | PM.PNGS ---
Progress Note: A&P Assessment and Plan (1) Splenic infarct: Code(s): D73.5 - Infarction of spleen Status: Acute Assessment and Plan: Unclear etiology. Echo results and cardiology consult noted. Further workup still pending. No indication for surgical intervention at this time. Would continue analgesics for pain control on discharge. Okay from a surgical perspective to discharge when okay with other services. No surgical follow-up needed. Would recommend the patient follow up with her primary care physician and possibly Hematology if needed. I discussed this with the hospitalist. (2) Urinary tract infection: Code(s): N39.0 - Urinary tract infection, site not specified Status: Acute Assessment and Plan: Management per Hospitalist. (3) Anemia: Code(s): D64.9 - Anemia, unspecified Status: Chronic (4) Type 1 diabetes: Code(s): E10.9 - Type 1 diabetes mellitus without complications Status: Acute Assessment and Plan: Currently using an insulin pump at home, which is continued here. (5) Gastroparesis: Code(s): K31.84 - Gastroparesis Status: Acute (6) Stage III chronic kidney disease: Code(s): N18.3 - Chronic kidney disease, stage 3 (moderate) Status: Acute Additional Plan Discussed the plan of care with Dr. Guajardo. Subjective Subjective Date/Time Seen: 02/08/20 14:00 Patient reports: no new complaints, feels better, pain is less and vomiting Interval history: Patient seen and reports having 2 episodes of vomiting a day. She feels is related to her gastroparesis. She deals with the same symptoms at home intermittently. Reports her left-sided abdominal pain has improved today. He is currently taking oral narcotics for the pain and tolerating it well. No other complaints at this time. Review of Systems Review of Systems: All systems reviewed & are unremarkable except as noted in HPI and below Constitutional: Constitutional: Reports as per HPI, Denies chills and Denies fever(s) Exam Const: General: no acute distress, alert and awake GI: Inspection: non-distended and other (RLQ insulin pump) GI Palp: Yes Soft to palpation, Yes Tenderness to palpation present (GI) (Left mid abdomen, improved from yesterday), No Guarding due to palpation present (GI), No Rigid due to palpation, No Hernia present and No Rebound tenderness present Auscultation: normal bowel sounds Skin: General skin exam: normal color Neuro: General: moves all extremities and no focal motor deficits Extrem: General: no clubbing, cyanosis or edema Psych: Appearance: grossly normal Affect: normal affect Insight: Good insight present (Psych) Judgement: Good judgement present (Psych) Objective Data Vital Signs Vital Signs: Vital Signs - 24 hr 02/07/20 16:00 02/07/20 18:00 02/07/20 20:00 Temperature 98.6 F Pulse Rate 58 L 68 61 Respiratory Rate 18 Blood Pressure 145/58 H Pulse Oximetry 100 98 02/07/20 22:00 02/08/20 00:00 02/08/20 02:00 Temperature 97.8 F 97.9 F Pulse Rate 65 60 61 Respiratory Rate 16 18 Blood Pressure 120/54 L 147/59 H Pulse Oximetry 98 96 02/08/20 04:00 02/08/20 06:00 02/08/20 10:00 Temperature 98.1 F 98.3 F Pulse Rate 65 69 71 Respiratory Rate 16 14 Blood Pressure 142/58 H 141/66 H Pulse Oximetry 96 97 Intake/Output Intake/Output: Intake & Output 02/05/20 02/06/20 02/07/20 02/08/20 23:59 23:59 23:59 23:59 Intake Total 2600 250 Output Total 400 600 Balance 2200 -350 Meds/Results Medications: Active Medications Generic Name Dose Route Start Last Admin Trade Name Freq PRN Reason Stop Dose Admin Hydrocodone Bitart/Acetaminophen 1 tab 02/07/20 10:11 02/08/20 11:09 Hydrocodone/Acetaminophen (*Crx) 10-325 Mg Tablet PO 1 tab Q6H PRN Administration Pain Rated 7-10 Aspirin 81 mg 02/07/20 09:35 02/07/20 10:38 Aspirin 81 Mg Enteric Tablet PO 81 mg [facility]
--- NOTE | 2020-02-08 16:17 | PM.IMPN ---
Progress Note: A&P Assessment and Plan (1) Splenic infarct: Code(s): D73.5 - Infarction of spleen Status: Acute Assessment and Plan: Etiology is unclear but possibly secondary to atherosclerotic plaque in the splenic artery. Echocardiogram showed no evidence of cardioembolic source. Telemetry monitoring demonstrates normal sinus rhythm. She has vascular risk factors including T1DM and continued tobacco dependence. General surgery and cardiology input is appreciated. She will have outpatient holter monitor. She has no prior hx of underlying clotting disorder. Prothrombin gene analysis, antiphospholipid antibody, protein C&S, and factor V Leiden were ordered and pending to r/o underlying hypercoagulable disorder. Protein electrophoresis and serum immunofixation were also ordered and pending. She had a recent CT scan approximately 2 months ago of the chest which showed a lung nodule which is being followed outpatient. CT abd/pelvis was negative for malignancy. She needs to ensure she is up to date on screening colonoscopy and mammogram. Further evaluation can be performed by her PCP in the outpatient setting. Start statin given atherosclerotic disease. Continue analgesics as needed for pain. I have discussed the case with Dr. Chilel who will see her for further recommendations. Continue lovenox. Continue aspirin. (2) Hypothyroidism: Code(s): E03.9 - Hypothyroidism, unspecified Status: Chronic Assessment and Plan: TSH is <0.015. Free T4 is normal at 1.68 and total T3 is 1.05 which is consistent with subclinical hyperthyroidism. She follows with endocrinology and will need repeat testing in 4 weeks. Continue levothyroxine. (3) Anemia: Code(s): D64.9 - Anemia, unspecified Status: Chronic Assessment and Plan: Chronic. Continue prior to admission ferrous sulfate. She also receives cyanocobalamin injections IM monthly. Continue to monitor hemoglobin and hematocrit. She has no evidence of acute blood loss. Check guaiac stool testing. Transfuse as needed to maintain Hb >7. (4) Multiple system atrophy: Code(s): G90.3 - Multi-system degeneration of the autonomic nervous system Status: Chronic Assessment and Plan: Chronic. Continue midodrine for associated orthostatic hypotension. (5) Urinary tract infection: Code(s): N39.0 - Urinary tract infection, site not specified Status: Acute Assessment and Plan: Urinalysis demonstrates positive nitrates and 4-6 WBC. She reports increased urinary frequency. Will treat with empiric cefdinir and try to obtain urine culture as the urinalysis did not reflex to culture. (6) Type 1 diabetes: Code(s): E10.9 - Type 1 diabetes mellitus without complications Status: Acute Assessment and Plan: Check hemoglobin A1c. She reports most recent HbA1c was close to 7. She uses an insulin pump which will be continued. She manages her insulin pump. Basal rate was adjusted since she is not eating as well here because she doesn't like the food. Continue [facility] glucose monitoring and hypoglycemia protocol. (7) Stage III chronic kidney disease: Code(s): N18.3 - Chronic kidney disease, stage 3 (moderate) Status: Acute Assessment and Plan: Labs are consistent with baseline. Likely secondary to diabetic nephropathy. Continue to monitor closely. Avoid nephrotoxins and renally dose medications. (8) Tobacco abuse: Code(s): Z72.0 - Tobacco use Status: Acute Assessment and Plan: Continue to encourage smoking cessation which is crucial given comorbid diabetes and vascular disease. (9) Thrombocytopenia: Code(s): D69.6 - Thrombocytopenia, unspecified Status: Acute Assessment and Plan: Possibly dilutional. She is also on lovenox. Monitor closely. I have consulted hematology as well. Subjective Date/time seen: 02/08/20 16:17
[2020-02-08 16:21] LABS: Glucose Point of Care 165 (65-105)
[2020-02-08] MEDS: SODIUM CHLORIDE 1 GM TABLET PO (16:39)
[2020-02-08] MEDS: fentaNYL CITRATE INJ (*CRX) 100 MCG/2 ML VIAL 25 MCG IV PUSH (21:48)
[2020-02-09] VITALS (10 sets, daily range): BP systolic 148–164; BP diastolic 61–73; PULSE 61–71; RESP 14–16; TEMP 36.4–36.8; O2SAT 96–98
[2020-02-09 06:09] LABS: Iron 43 ug/dL (37-170)
[2020-02-09] MEDS: LEVOTHYROXINE SODIUM 100 MCG TABLET PO (06:15)
[2020-02-09 06:19] LABS: Percent Iron Saturation 19 % (20-50)
[2020-02-09 07:38] LABS: Glucose Point of Care 123 (65-105)
[2020-02-09 07:45] LABS: Hematocrit 31.5 % (37.0-47.0); Hemoglobin 10.1 g/dL (12.0-15.0); Mean Corpuscular HGB Conc 32.1 g/dl (32-36); Mean Corpuscular Hemoglobin 30.6 pg (26-34); Mean Corpuscular Volume 95.5 fl (80-100); Mean Platelet Volume 12.3 fl (7.4-10.4); Platelet Count Result 145 k/mm3 (150-375); Red Cell Distribution Width 12.2 % (11.5-14.5); White Blood Count 4.3 K/mm3 (4.5-10.0)
[2020-02-09 08:00] LABS: Anion Gap 7 mmol/L (8-16); Blood Urea Nitrogen 14 mg/dL (7-17); Calcium 8.8 mg/dL (8.4-10.2); Carbon Dioxide 24 mmol/L (22-30); Chloride 108 mmol/L (98-107); Estimated CRCL calculation 33 ml/min; Estimated Glomerular Filt Rate 46; Glucose 102 mg/dL (65-105); Potassium 4.3 mmol/L (3.4-5.0); Sodium 139 mmol/L (137-145)
[2020-02-09 09:18] LABS: Folic Acid 9.5 ng/mL (2.76->20)
[2020-02-09] MEDS: DOCUSATE SODIUM 100 MG CAPSULE PO ×2 (09:53→20:23)
[2020-02-09] MEDS: CEFDINIR 300 MG CAPSULE PO ×2 (09:53→20:23)
[2020-02-09] MEDS: ASPIRIN 81 MG ENTERIC TABLET PO (09:53)
[2020-02-09] MEDS: FERROUS SULFATE 324 MG TABLET PO (09:54)
[2020-02-09] MEDS: ENOXAPARIN 60 MG/0.6 ML SYRINGE 48 MG SUB-Q (09:54)
[2020-02-09] MEDS: GABAPENTIN 300 MG CAPSULE 600 MG PO ×3 (09:54→16:47)
[2020-02-09] MEDS: SODIUM CHLORIDE 1 GM TABLET PO ×2 (09:55→16:48)
[2020-02-09] MEDS: MIDODRINE HCL 2.5 MG TABLET 5 MG PO ×2 (09:55→16:47)
[2020-02-09] MEDS: HYDROcodone/acetaminophen (*CRX) 10-325 MG TABLET 1 TAB PO ×2 (10:01→16:48)
--- NOTE | 2020-02-09 11:54 | PM.PNGS ---
Progress Note: A&P Assessment and Plan (1) Splenic infarct: Code(s): D73.5 - Infarction of spleen Status: Acute Assessment and Plan: Unclear etiology. Echo results and cardiology consult noted. Further workup still pending. ( immunologic testing, anti phospholipid studies, factor 5 Leiden study, and hematology consultation). No indication for surgical intervention at this time. Would continue analgesics for pain control on discharge. Okay from a surgical perspective to discharge when okay with other services. No surgical follow-up needed. Would recommend the patient follow up with her primary care physician and possibly Hematology if needed. (2) Urinary tract infection: Code(s): N39.0 - Urinary tract infection, site not specified Status: Acute Assessment and Plan: Management per Hospitalist. (3) Anemia: Code(s): D64.9 - Anemia, unspecified Status: Chronic (4) Type 1 diabetes: Code(s): E10.9 - Type 1 diabetes mellitus without complications Status: Acute Assessment and Plan: Currently using an insulin pump at home, which is continued here. (5) Gastroparesis: Code(s): K31.84 - Gastroparesis Status: Acute (6) Stage III chronic kidney disease: Code(s): N18.3 - Chronic kidney disease, stage 3 (moderate) Status: Acute Subjective Subjective Date/Time Seen: 02/09/20 10:55 Patient is sitting up in bed when I entered the room. She states she is still having left upper quadrant abdominal pain. This is made tolerable by taking [place] 5/325 tablets once every 6 hours. She states that she is hoping to go home today. She has been tolerating a diet but not eating a lot. No bowel movement since entering the hospital. Offered to give her a laxative. She states she wanted to wait take 1 when she got home so she is near her bathroom. Review of Systems Review of Systems: All systems reviewed & are unremarkable except as noted in HPI and below Constitutional: Constitutional: Reports as per HPI, Denies chills, Denies excessive sweating, Denies fatigue, Denies fever(s), Denies headache(s) and Denies weakness Eyes: Eyes: Denies change in vision and Denies loss of vision ENT: Denies dizziness and Denies headache(s) Cardiovascular: Cardiovascular: Denies chest pain, Denies syncope, Denies leg edema, Denies lightheadedness, Denies radiating jaw, neck or arm pain and Denies dyspnea Respiratory: Respiratory: Denies cough, Denies dyspnea and Denies wheezing Gastrointestinal: Gastrointestinal: Reports as per HPI, Reports abdominal pain (LUQ , controlled with oral pain medicine), Denies melena, Denies bloating, Denies hematochezia, Denies change in stool character, Denies constipation, Denies diarrhea, Denies nausea and Denies vomiting Genitourinary: Genitourinary: Reports no additional female genitourinary complaints, Reports as per HPI, Denies hematuria, Reports nocturia, Denies dysuria and Reports urinary urgency Comments: states she does get frequent urinary tract infections. Musculoskeletal: Musculoskeletal: Denies deformity, Denies joint swelling, Denies radiating pain into limb and Denies tingling Integumentary/Breasts: Skin/Breast: Denies pruritus, Denies wounds and Denies jaundice Neurologic: Denies dizziness, Denies syncope, Denies headache(s), Denies loss of vision, Denies tingling, Denies tremor(s) and Denies weakness Psychiatric: Psychiatric: Denies anxiety and Denies depression Endocrine: Endocrine: Denies cold intolerance, Denies excessive sweating, Denies fatigue and Denies heat intolerance Hematologic/Lymphatic: Hematologic/Lymphatic: Denies easy bleeding and Denies easy bruising Allergic/Immunologic: Allergic/Immunologic: Denies wheezing Exam Const: General: comfortable, no acute distress, alert and awake Nutritional Appearance: thin Limitations: no limitations HENMT: Head: normal to inspection, normocephalic and atraumatic
[2020-02-09 12:05] LABS: Glucose Point of Care 216 (65-105)
[2020-02-09] MEDS: SODIUM CHLORIDE 0.9% IV 1,000 ML 150 ML IV CONT (13:01)
[2020-02-09] MEDS: SODIUM CHLORIDE 0.9% IV 1,000 ML 50 ML IV CONT (14:43)
--- NOTE | 2020-02-09 15:50 | PDONCCN ---
HPI - Date of Consult Date/Time: 02/09/20 15:50 Requesting Physician: Batsheva Pollock PA-C Primary Care Provider: Bin AlmanzarMD - Consult Narrative Reason for consult: Splenic infarction Narrative: Josh Marie is a 64 year old female with history of type 1 diabetes and gastroparesis and diabetic retinopathy along with orthostatic hypotension and hypothyroidism dull of sudden onset of left upper quadrant pain. She denies any fevers and chills. She denies any recent injury travel or surgery. She is not taking any hormone therapy. She has no previous history of thromboembolic events. CT scan was done that showed absent enhancement along the cord and anterior margin of the spleen consistent with splenic infarction. She was started on Lovenox and aspirin with improvement in the left lower quadrant pain. Repeat CT scan showed stable splenic infarction. Review of Systems - Review of Systems All systems reviewed & are unremarkable except as noted in HPI and bel - Neurologic Reports system reviewed and no additional complaints, except as documented, Denies confusion, Denies syncope, Denies headache(s), Denies loss of vision, Denies tingling, Denies tremor(s), Denies weakness PMFSH Medical History: Medical History (Last Reviewed 02/07/20 @ 14:21 by Denis Edmond MD) Arthritis Diabetic retinopathy Dupuytren contracture Fractured coccyx Gastroparesis Glaucoma History of renal stone Hypothyroidism Multiple system atrophy Peripheral neuropathy Pernicious anemia Pneumonia Postural hypotension Stage III chronic kidney disease TIA (transient ischemic attack) Type 1 diabetes Surgical History: Surgical History (Last Reviewed 02/07/20 @ 14:21 by Denis Edmond MD) History of hand surgery History of partial hysterectomy vaginal partial hysterectomy Hx of cholecystectomy Laparoscopic cholecystectomy in 2004 Family History: Family History (Last Reviewed 02/07/20 @ 14:21 by Denis Edmond MD) Father Acute myocardial infarction Bladder cancer Mother Diabetes mellitus Sibling Diabetes mellitus Sibling Refractory anemia due to myelodysplastic syndrome - Social History Social History: Social History (Last Reviewed 02/07/20 @ 14:21 by Denis Edmond MD) Gender Identity: Gender identity (if verbalized by the patient): Female Alcohol Use: Alcohol intake: current Alcohol use details: Very infrequent - 1 glass of wine per year Substance Use: Substance use: never Substance use type: does not use Others: Spiritual care concerns: No Smoking Status: Smoking status: Current every day smoker Tobacco type: cigarettes Smoking Pack-years: Smoking packs per day: 0.5 Smoking cigarettes per day: 10.0 Meds Home Medications Medication Instructions Recorded Confirmed Type Vitamin D2 1 tablet BYMOUTH DAILY 02/14/19 02/07/20 History cyanocobalamin (vitamin B-12) 1,000 mcg IM MONTHLY 02/14/19 02/07/20 History gabapentin 600 mg PO TID 02/14/19 02/07/20 History hydrocodone-acetaminophen 1 tablet PO Q6H PRN 02/14/19 02/07/20 History insulin lispro [Humalog U-100 See Protocol SUBCUT PRN PRN 02/14/19 02/07/20 History Insulin] levothyroxine 100 mcg PO DAILY 02/14/19 02/07/20 History ferrous sulfate 324 mg PO DAILY 02/07/20 02/07/20 History midodrine 5 mg PO BID 02/07/20 02/07/20 History sodium chloride 1 g PO BID 02/07/20 02/07/20 History Allergies Allergy/AdvReac Type Severity Reaction Status Date / Time codeine AdvReac Unknown HYPOTENSION Verified 02/08/17 20:43 Results - Labs CBC & Chem 7: 02/09/20 05:21 02/09/20 05:21 Labs: Short CBC 02/09/20 Range/Units 05:21 WBC 4.3 L (4.5-10.0) K/mm3 Hgb 10.1 L (12.0-15.0) g/dL Hct 31.5 L (37.0-47.0) % Plt Count 145 L (150-375) k/mm3 [facility] 02/09/20 05:21 Sodium 139 Potassium 4.3 Chloride 108 H Carbon Dioxide 24 BUN 14 C
--- NOTE | 2020-02-09 16:35 | PM.DS ---
DS: Admitting Diagnosis Admitting Diagnosis Admitting Diagnosis: spleen infarct DS: Discharge Diagnosis Discharge Diagnosis (1) Splenic infarct: Code(s): D73.5 - Infarction of spleen Status: Acute Assessment and Plan: Discharge Summary (Date of service 02/09/20): Mrs. Marie is a 64 year old female with PMH significant for T1DM with gastroparesis, diabetic retinopathy, and diabetic nephropathy, multiple system atrophy with orthostatic hypotension, hypothyroidism, tobacco dependence, and anemia who presented to the emergency department 02/06/20 for the evaluation of severe LUQ pain. Pain started Sunday 02/04. Pain was sharp, constant, and worse with deep breathing and coughing/sneezing with radiation to the left side/back. CT abd/pelvis in the ED demonstrated new geographic regions of absent enhancement along the caudal and anterior margin of the spleen consistent with splenic infarcts which appear acute. The splenic artery has atherosclerotic plaque in the midportion of the tortuous artery. She was admitted to the hospitalist service and general surgery, cardiology, and hematology were consulted. Therapeutic lovenox was initiated for anticoagulation. Given extensive atherosclerotic disease, ASA EC 81mg and atorvastatin were initiated. Echocardiogram showed no evidence of cardioembolic source. Telemetry monitoring demonstrated normal sinus rhythm. She has no prior hx of underlying clotting disorder. Prothrombin gene analysis, antiphospholipid antibody, protein C&S, and factor V Leiden were ordered to r/o underlying hypercoagulable disorder. After discharge, protein C was found to be deficient and anti-cardiolipin IgM Ab was mildly elevated. PEP interpretation (ordered to r/o underlying malignancy) suggested acute inflammation pattern with elevation of acute phase proteins. Serum immunofixation was negative for abnormal bands. I did call to notify Dr. Almanzar's office, her PCP, of the findings of her hypercoagulable workup and protein electrophoresis and spoke with his nurse. She will follow-up with Dr. Chilel with hematology/oncology as well. Chest/abd/pelvis CTA was ordered to r/o embolic source and negative. She needs to ensure she is up to date on screening colonoscopy and mammogram with her PCP. Dr. Chilel recommended she continue eliquis and follow-up outpatient in 4 weeks. Her pain improved. She was discharged in hemodynamically stable condition on the evening of 02/09/20. (2) Hypothyroidism: Code(s): E03.9 - Hypothyroidism, unspecified Status: Chronic Assessment and Plan: TSH is <0.015. Free T4 is normal at 1.68 and total T3 is 1.05 which is consistent with subclinical hyperthyroidism. She follows with endocrinology and will need repeat testing in 4 weeks. Levothyroxine was continued at her current dose and any necessary adjustments will be deferred to endocrinology. (3) Anemia: Code(s): D64.9 - Anemia, unspecified Status: Chronic Assessment and Plan: Chronic. Prior to admission ferrous sulfate was continued and she also receives cyanocobalamin injections IM monthly. (4) Multiple system atrophy: Code(s): G90.3 - Multi-system degeneration of the autonomic nervous system Status: Chronic Assessment and Plan: Chronic. Midodrine and sodium chloride tablets were continued for associated orthostatic hypotension. (5) Urinary tract infection: Code(s): N39.0 - Urinary tract infection, site not specified Status: Acute Assessment and Plan: Urinalysis demonstrates positive nitrates and 4-6 WBC. Urine culture demonstrated citrobacter fruendii which was susceptible to cefdinir. She was treated with PO cefdinir and symptoms resolved. (6) Type 1 diabetes: Code(s): E10.9 - Type 1 diabetes mellitus without complications Status: Acute Assessment and Plan: Hemoglobin A1c was 7.4 02/07. She uses an insulin pump which was co
[2020-02-09 17:02] LABS: Glucose Point of Care 114 (65-105)
[2020-02-09] MEDS: APIXABAN 5 MG TABLET PO (20:23)
[2020-02-09] MEDS: HYDROcodone/acetaminophen (*CRX) 5-325 MG TABLET 1 TAB PO (20:29)
[2020-02-09 21:03] LABS: Glucose Point of Care 163 (65-105)
--- NOTE | 2020-02-09 21:33 | PC.NURSE ---
telemetry 2000 sinus rhythem 66
[2020-02-09 21:53] LABS: Anti Cardio Antibody IgM 13 MPL (<=12); Anti Cardiolipin Antibody IgA <11 APL (<=11); Anti Cardiolipin Antibody IgG <14 GPL (<=14)
[2020-02-10 02:36] LABS: Lupus dRVVT 1:1 Mix Interpreta Not Indicated; Lupus dRVVT Screen 33 sec (<=45); PTT-LA Screen 24 sec (<=40)
[2020-02-11 21:21] LABS: Albumin 2.8 g/dL (3.8-4.8); Alpha 1 Globulin 0.4 g/dL (0.2-0.3); Alpha 2 Globulin 0.7 g/dL (0.5-0.9); Beta 1 Globulin 0.3 g/dL (0.4-0.6); Gamma Globulin 0.6 g/dL (0.8-1.7); Protein, Total 4.9 g/dL (6.1-8.1)
== END 2020-02-09 20:55 | disposition home or self-care (01) ==
LOC: ANHED 23:12 → ANH2MED 02-07 00:57
PROVIDERS: Emergency Medicine; Physician Assistant; Surgery; Admitting Provider Internal Medicine; Emergency Provider Emergency Medicine; PCP Internal Medicine; Visit Provider Family Medicine
DX: D73.5 Infarction of spleen (principal); E03.9 Hypothyroidism, unspecified; D64.9 Anemia, unspecified; G90.3 Multi-system degeneration of the autonomic nervous system; N39.0 Urinary tract infection, site not specified; E10.22 Type 1 diabetes mellitus with diabetic chronic kidney disease; E10.42 Type 1 diabetes mellitus with diabetic polyneuropathy; N18.30 Chronic kidney disease, stage 3 unspecified; F17.210 Nicotine dependence, cigarettes, uncomplicated; D69.6 Thrombocytopenia, unspecified; R10.12 Left upper quadrant pain; E10.319 Type 1 diabetes mellitus with unspecified diabetic retinopathy without macular edema; M72.0 Palmar fascial fibromatosis [Dupuytren]; E10.43 Type 1 diabetes mellitus with diabetic autonomic (poly)neuropathy; K31.84 Gastroparesis; Z86.73 Personal history of transient ischemic attack (TIA), and cerebral infarction without residual deficits; Z79.899 Other long term (current) drug therapy; Z90.49 Acquired absence of other specified parts of digestive tract; I27.20 Pulmonary hypertension, unspecified; Z79.4 Long term (current) use of insulin
CPT/HCPCS: 36415; 71275; 74174; 74177; 80048; 80053; 80061; 81001; 81240; 81241; 82607; 82728; 82746; 83036; 83540; 83550; 83605; 83690; 84155; 84165; 84439; 84443; 84480; 85025; 85027; 85055; 85303; 85306; 85613; 85730; 86146; 86147; 86334; 87040; 87077; 87086; 87088; 87186; 93005; 93306; 96361; 96372; 96374; 96375; 96376; 99285; A9270; G0378; J1650; J1885; J2270; J2405; J3010; J7030; Q9967

== ENCOUNTER 2020-04-16 11:16 | Outpatient (CLI) | payer MEDICARE, SELFPAY ==
[2020-04-18 10:25] LABS: Protein S Antigen, Free 91 % normal (50-147)
== END 2020-04-16 11:17 | disposition home or self-care (01) ==
LOC: ANHLAB 11:17
PROVIDERS: PCP Internal Medicine; Visit Provider Internal Medicine Hematology & Oncology
DX: D73.5 Infarction of spleen (principal)
CPT/HCPCS: 36415; 85303; 85306

== ENCOUNTER 2020-10-16 10:38 | Outpatient (CLI) | payer MEDICARE, SELFPAY | END 2020-10-16 10:39 | disposition home or self-care (01) | LOC: ANHLAB 10:45 | PROVIDERS: PCP Internal Medicine; Visit Provider Internal Medicine Hematology & Oncology | DX: D73.5 Infarction of spleen (principal) | CPT/HCPCS: 36415; 85303; 85306 ==

== ENCOUNTER 2021-12-25 15:34 | Emergency (ER) | payer MEDICARE, SELFPAY ==
[2021-12-25 15:42] VITALS: BP 104/56; PULSE 72; RESP 14; TEMP 36.9; O2SAT 98
--- NOTE | 2021-12-25 16:23 | ED.EXTPRO ---
HPI - Extremity Problem General Chief complaint: Extremity Problem,Nontraumatic Stated complaint: R. foot pain Time Seen by Provider: 12/25/21 15:56 History of Present Illness HPI Narrative: 66-year-old female history of diabetes with neuropathy, hypothyroidism, anemia, hyperlipidemia, tobacco dependence and is anticoagulated due to multiple splenic infarcts presents to the emergency room for evaluation of worsening right lower extremity diabetic neuropathic pain. Patient states that she takes 600 mg of gabapentin 3 times a day and is also taking Sumner for breakthrough pain, neither of which have been providing her pain. Patient has not consulted her primary care physician. Patient presents requesting stronger pain medicine. Related Data Home Medications Medication Instructions Recorded Confirmed Vitamin D2 1 tablet BYMOUTH DAILY 02/14/19 02/07/20 cyanocobalamin (vitamin B-12) 1,000 mcg IM MONTHLY 02/14/19 02/07/20 gabapentin 300 mg capsule 600 mg PO TID 02/14/19 02/07/20 hydrocodone 5 mg-acetaminophen 325 1 tablet PO Q6H PRN PAIN 02/14/19 02/07/20 mg tablet insulin lispro 100 unit/mL See Protocol subcut PRN PRN BLOOD 02/14/19 02/07/20 subcutaneous solution (Humalog SUGAR U-100 Insulin) levothyroxine 100 mcg tablet 100 mcg PO DAILY 02/14/19 02/07/20 ferrous sulfate 324 mg (65 mg 324 mg PO DAILY 02/07/20 02/07/20 iron) tablet,delayed release midodrine 5 mg tablet 5 mg PO BID 02/07/20 02/07/20 sodium chloride 1 gram tablet 1 g PO BID 02/07/20 02/07/20 Allergies Allergy/AdvReac Type Severity Reaction Status Date / Time codeine AdvReac Unknown HYPOTENSION Verified 12/25/21 16:22 Review of Systems Review of Systems: CONSTITUTIONAL: Denies fever, chills, or sweats. EYES: Denies visual changes, redness, or discharge. ENT: Denies rhinorrhea, congestion, sore throat, or otalgia. CARDIOVASCULAR: Denies chest pain, palpitations, or edema. RESPIRATORY: Denies cough or dyspnea. GASTROINTESTINAL: Denies abdominal pain, nausea, vomiting, or diarrhea. GENITOURINARY: Denies dysuria or hematuria. SKIN: Denies rash or itching. MUSCULOSKELETAL: Denies back pain, joint pain, or myalgia. NEUROLOGIC: Reports neuropathic pain right foot PSYCHIATRIC: Denies anxiety or depression. [facility] Past Medical History Medical History Arthritis Diabetic retinopathy Dupuytren contracture Fractured coccyx Gastroparesis Glaucoma History of renal stone Hypothyroidism Multiple system atrophy Peripheral neuropathy Pernicious anemia Pneumonia Postural hypotension Stage III chronic kidney disease TIA (transient ischemic attack) Type 1 diabetes Surgical History Surgical History History of hand surgery History of partial hysterectomy vaginal partial hysterectomy Hx of cholecystectomy Laparoscopic cholecystectomy in 2004 Family History Family History Father Acute myocardial infarction Bladder cancer Mother Diabetes mellitus Sibling Diabetes mellitus Sibling Refractory anemia due to myelodysplastic syndrome Social History Social History Social History: Mrs. Marie lives at home with her in [place], [place]. 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 She is a current 2 pack per week smoker. She reports very infrequent alcohol use (1 glass of wine/year) and denies illicit substance use. She wishes to be a full code and she has designated her , Mahin Marie, and her son, Dennys Combs, as her surrogate medical decision makers. Smoking packs per day: 0.5 Smoking cigarettes per day: 10.0 Smoking status: Current every day smoker Tobacco type: cigarettes Alcohol intake: current Alcohol use details: Very infrequent - 1 glass of wine per year Substance use: never Substance use type: does not us
== END 2021-12-25 17:16 | disposition home or self-care (01) ==
PROVIDERS: Emergency Provider Nurse Practitioner Family; PCP Internal Medicine
DX: E10.42 Type 1 diabetes mellitus with diabetic polyneuropathy (principal); E10.22 Type 1 diabetes mellitus with diabetic chronic kidney disease; N18.30 Chronic kidney disease, stage 3 unspecified; E10.319 Type 1 diabetes mellitus with unspecified diabetic retinopathy without macular edema; E10.43 Type 1 diabetes mellitus with diabetic autonomic (poly)neuropathy; K31.84 Gastroparesis; E03.9 Hypothyroidism, unspecified; M19.90 Unspecified osteoarthritis, unspecified site; M72.0 Palmar fascial fibromatosis [Dupuytren]; D51.0 Vitamin B12 deficiency anemia due to intrinsic factor deficiency; Z86.73 Personal history of transient ischemic attack (TIA), and cerebral infarction without residual deficits; Z87.442 Personal history of urinary calculi; H40.9 Unspecified glaucoma; Z90.711 Acquired absence of uterus with remaining cervical stump; F17.210 Nicotine dependence, cigarettes, uncomplicated; Z96.41 Presence of insulin pump (external) (internal); Z79.82 Long term (current) use of aspirin; Z79.4 Long term (current) use of insulin; Z79.01 Long term (current) use of anticoagulants
CPT/HCPCS: 99281

== ENCOUNTER 2022-04-14 10:18 | Emergency (ER) | payer MEDICARE, SELFPAY ==
[2022-04-14] VITALS (17 sets, daily range): BP systolic 118–167; BP diastolic 71–93; PULSE 60–99; RESP 15–18; TEMP 36.3–37.1; O2SAT 98–100
--- NOTE | ~2022-04-14 | CT_ITS ---
EXAMINATION: CT abdomen pelvis w con INDICATION: Right-sided abdominal pain TECHNIQUE: Computed tomographic images of the abdomen and pelvis were obtained after the administrati on of 100 cc of Omnipaque 350 intravenous contrast. The dose-length product (DLP) was 166.07 mGy-cm. Automated exposure control and iterative reconstruction technique were employed. COMPARISON: 02/09/2020 FINDINGS: Minimal dependent atelectasis is present in the lung bases. The heart size is normal. The g allbladder is surgically absent. There is moderate chronic enlargement of the common bile duct and ce ntral intrahepatic ducts which is likely due to post cholecystectomy state. The liver and adrenal gla nds are normal. There is scarring in caudal pole of the spleen, consistent with prior infarct. Cortic al thinning is again noted in the kidneys. There is an 8 mm cyst of the right kidney upper pole. No p athologically enlarged abdominal or pelvic lymph nodes are identified. No free intraperitoneal gas or evidence of bowel obstruction. The appendix is normal. There is mild lumbar spondylosis. Calcified a therosclerosis is noted. IMPRESSION: 1. No CT correlate for the patient's symptoms. Reviewed, dictated and finalized at location [facility]
[2022-04-14 10:52] LABS: Appearance Urine Slightly Cloudy (Clear); Basophils Percent Auto 0.5 % (0.2-1.2); Bilirubin Urine Negative (Negative); Blood Urine Negative (Negative); Color Urine Yellow (Yellow); Eosinophils Absolute Auto 0.1 K/mm3 (0-0.3); Eosinophils Percent Auto 1.4 % (0-4.4); Glucose Urine UA Negative (Negative); Hematocrit 39.9 % (37.0-47.0); Hemoglobin 12.8 g/dL (12.0-15.0); Immature Granulocyte Absolute 0.01 K/mm3 (0.00-0.031); Immature Granulocyte Percent A 0.2 % (0-0.5); Ketones Urine Negative (Negative); Leukocyte Esterase Ur Negative LEU/UL (Negative); Lymphocytes Absolute Auto 2.51 K/mm3 (0.9-3.2); Mean Corpuscular HGB Conc 32.1 g/dl (32-36); Mean Corpuscular Hemoglobin 31.1 pg (26-34); Mean Corpuscular Volume 97.1 fl (80-100); Mean Platelet Volume 10.6 fl (7.4-10.4); Monocytes Absolute Auto 0.5 K/mm3 (0.1-0.6); Monocytes Percent Auto 8.4 % (2.6-8.5); Neutrophils Absolute Auto 2.5 K/mm3 (1.3-6.7); Neutrophils Percent Auto 44.5 % (45.5-73.1); Nitrate Urine Positive (Negative); Platelet Count Result 208 k/mm3 (150-375); Protein Urine 2+ mg/dL (Negative); Red Blood Count 4.11 M/mm3 (4.2-5.4); Red Cell Distribution Width 12.2 % (11.5-14.5); Urobilinogen Urine 0.2 mg/dL (<2.0); White Blood Count 5.6 K/mm3 (4.5-10.0); pH Urine 6.5 (5.0-9.0)
[2022-04-14 10:55] LABS: Bacteria Urine 2+ /hpf; Mucus Urine Rare /lpf; Squamous Epithelial Cell Urine Few /hpf (Few)
[2022-04-14 11:04] LABS: Add Urine Microscopic? YES
[2022-04-14 11:22] LABS: Alanine Aminotransferase 25 U/L (6-35); Albumin Level 4.3 g/dL (3.5-5.1); Alkaline Phosphatase 87 U/L (38-126); Anion Gap 3 mmol/L (8-16); Aspartate Amino Transferase 34 U/L (14-36); Bilirubin,Total 0.7 mg/dL (0.2-1.3); Blood Urea Nitrogen 21 mg/dL (7-17); Calcium 9.2 mg/dL (8.4-10.2); Carbon Dioxide 31 mmol/L (22-30); Chloride 101 mmol/L (98-107); Estimated CRCL calculation 24 ml/min; Estimated Glomerular Filt Rate 35; Glucose 170 mg/dL (65-110); Lipase 35 U/L (23-300); Potassium 4.1 mmol/L (3.4-5.0); Sodium 135 mmol/L (137-145)
--- NOTE | 2022-04-14 11:41 | ED.ABDPAIN ---
HPI - Abdominal Pain General Chief Complaint: Abdominal Pain Stated Complaint: right flank pain x1 week Time Seen by Provider: 04/14/22 11:06 Source: patient Mode of arrival: ambulatory Limitations: no limitations History of Present Illness HPI narrative: This is a 66-year-old female that presents emergency department for right upper quadrant pain ongoing over the last week. Reports the pain is dull and constant. Intermittently it is more sharp. Sometimes it is worse with certain movement or breathing. She has been taking her Carter prescribed for chronic pain with little relief. Reports she has had a kidney stone before and that the pain feels similar. No other associated symptoms. Denies fever, chest pain, shortness of breath, nausea, vomiting, diarrhea, dysuria, or hematuria. Related Data Home Medications Medication Instructions Recorded Confirmed Vitamin D2 1 tablet BYMOUTH DAILY 02/14/19 02/07/20 cyanocobalamin (vitamin B-12) 1,000 mcg IM MONTHLY 02/14/19 02/07/20 gabapentin 300 mg capsule 600 mg PO TID 02/14/19 02/07/20 hydrocodone 5 mg-acetaminophen 325 1 tablet PO Q6H PRN PAIN 02/14/19 02/07/20 mg tablet insulin lispro 100 unit/mL See Protocol subcut PRN PRN BLOOD 02/14/19 02/07/20 subcutaneous solution (Humalog SUGAR U-100 Insulin) levothyroxine 100 mcg tablet 100 mcg PO DAILY 02/14/19 02/07/20 ferrous sulfate 324 mg (65 mg 324 mg PO DAILY 02/07/20 02/07/20 iron) tablet,delayed release midodrine 5 mg tablet 5 mg PO BID 02/07/20 02/07/20 sodium chloride 1 gram tablet 1 g PO BID 02/07/20 02/07/20 Allergies Allergy/AdvReac Type Severity Reaction Status Date / Time codeine AdvReac Unknown HYPOTENSION Verified 12/25/21 16:22 Review of Systems Review of Systems: CONSTITUTIONAL: Denies fever CARDIOVASCULAR: Denies chest pain, or edema. RESPIRATORY: Denies dyspnea. GASTROINTESTINAL: Reports abdominal pain. Denies nausea, vomiting, or diarrhea. GENITOURINARY: Denies dysuria or hematuria. MUSCULOSKELETAL: Reports back pain, joint pain, and myalgia. All systems reviewed & are unremarkable except as noted in HPI and below PMFSH Past Medical History Medical History Arthritis Diabetic retinopathy Dupuytren contracture Fractured coccyx Gastroparesis Glaucoma History of renal stone Hypothyroidism Multiple system atrophy Peripheral neuropathy Pernicious anemia Pneumonia Postural hypotension Stage III chronic kidney disease TIA (transient ischemic attack) Type 1 diabetes Surgical History Surgical History History of hand surgery History of partial hysterectomy vaginal partial hysterectomy Hx of cholecystectomy Laparoscopic cholecystectomy in 2004 Family History Family History Father Acute myocardial infarction Bladder cancer Mother Diabetes mellitus Sibling Diabetes mellitus Sibling Refractory anemia due to myelodysplastic syndrome Social History Social History Social History: Mrs. Marie lives at home with her in [place], [place]. 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 She is a current 2 pack per week smoker. She reports very infrequent alcohol use (1 glass of wine/year) and denies illicit substance use. She wishes to be a full code and she has designated her , Mahin Marie, and her son, Dennys Combs, as her surrogate medical decision makers. Smoking packs per day: 0.5 Smoking cigarettes per day: 10.0 Smoking status: Current every day smoker Tobacco type: cigarettes Alcohol intake: current Alcohol use details: Very infrequent - 1 glass of wine per year Substance use: never Substance use type: does not use Living arrangements: with family Gender identity (if verbalized by the patient): Female Spiritual care concerns: No
[2022-04-14] MEDS: ONDANSETRON INJ 4 MG/2 ML VIAL IV PUSH (12:18)
[2022-04-14] MEDS: MORPHINE SULFATE (*CRX) 4 MG/ML INJ IV PUSH (12:18)
[2022-04-14] MEDS: SODIUM CHLORIDE 0.9% IV 1,000 ML 999 ML IV CONT (12:19)
[2022-04-14 12:22] LABS: Partial Thromboplastin Time 26.5 SECONDS (22.3-36.8); Prothrombin Time 12.9 Seconds (11.1-14.7)
[2022-04-14 12:24] LABS: D Dimer 0.41 ug/mL (<0.48)
== END 2022-04-14 15:17 | disposition home or self-care (01) ==
PROVIDERS: Emergency Medicine; Emergency Provider Physician Assistant; PCP Internal Medicine
DX: N12 Tubulo-interstitial nephritis, not specified as acute or chronic (principal); E10.22 Type 1 diabetes mellitus with diabetic chronic kidney disease; E10.42 Type 1 diabetes mellitus with diabetic polyneuropathy; E10.39 Type 1 diabetes mellitus with other diabetic ophthalmic complication; H42 Glaucoma in diseases classified elsewhere; E10.319 Type 1 diabetes mellitus with unspecified diabetic retinopathy without macular edema; N18.30 Chronic kidney disease, stage 3 unspecified; E10.43 Type 1 diabetes mellitus with diabetic autonomic (poly)neuropathy; K31.84 Gastroparesis; E03.9 Hypothyroidism, unspecified; M19.90 Unspecified osteoarthritis, unspecified site; D51.0 Vitamin B12 deficiency anemia due to intrinsic factor deficiency; Z86.73 Personal history of transient ischemic attack (TIA), and cerebral infarction without residual deficits; Z87.442 Personal history of urinary calculi; Z79.4 Long term (current) use of insulin; Z90.711 Acquired absence of uterus with remaining cervical stump; F17.210 Nicotine dependence, cigarettes, uncomplicated
CPT/HCPCS: 36415; 74177; 80053; 81001; 81025; 83690; 85025; 85380; 85610; 85730; 87077; 87086; 87186; 96361; 96365; 96375; 99284; J0131; J0696; J2270; J2405; J7030; Q9967

== ENCOUNTER 2023-08-13 10:03 | Outpatient (CLI) | payer MEDICARE, SELFPAY ==
--- NOTE | ~2023-08-13 | CT_ITS ---
CT of the Abdomen and Pelvis: Indication: Abdominal pain Technique: 2.5 mm axial scans were obtained through the abdomen and pelvis following intravenous adm inistration of 100 cc of Omnipaque 350. Dose reduction technique was used on this scan by utilizing a utomated exposure control and iterative reconstruction technique. The dose-length product (DLP) was 1 98.85 mGy-cm. COMPARISON: 04/14/2022 Findings: Scans through the lung bases are unremarkable. The liver, pancreas, adrenals and kidneys are within normal limits. Cholecystectomy clips are present . There is heterogeneous enhancement of the spleen, with wedge-shaped areas of decreased enhancement. There are atherosclerotic calcifications of the aorta. No lymphadenopathy. No bowel obstruction or bowel wall thickening. There is no evidence to suggest acute appendicitis. Images through the pelvis were performed. Urinary bladder unremarkable. No pelvic mass seen. No ascit es. Impression: Findings most consistent with multiple, fairly extensive, splenic infarcts. Reviewed, dictated and finalized at [facility]. Impression: Findings most consistent with multiple, fairly extensive, splenic infarcts.
[2023-08-13 10:20] LABS: Estimated Glomerular Filt Rate 38
== END 2023-08-13 10:04 | disposition home or self-care (01) ==
LOC: ANHIMG 10:06
PROVIDERS: PCP Internal Medicine; Visit Provider Internal Medicine
DX: R10.12 Left upper quadrant pain (principal); E10.65 Type 1 diabetes mellitus with hyperglycemia
CPT/HCPCS: 74177; Q9967

== ENCOUNTER 2024-09-09 17:59 | Emergency (ER) | payer MEDICARE, SELFPAY ==
--- OUTSIDE RECORDS SUMMARY | 2024-09-09 18:02 | XMS_ITS | Clinical Summary ---
Author Organization [facility] Address [address] [place] [address] Care Team Providers Care Race Relations Professor Name Role Phone Bin Almanzar MD Primary Care Provider [phone] Allergies Active Allergy Reactions Criticality Noted Date Comments Codeine Bradycardia Medium 03/14/2020 Medications gabapentin (NEURONTIN) 300 mg capsule 01/01/20 20 Active cyanocobalamin (VITAMIN B-12) 1,000 mcg/mL Solution INJECT INTRAMUSCULARLY 1ML EVERY MONTH DIRECTED . (DISCARD 28 DAYS AFTER FIRST USE.) 01/01/20 20 Active atorvastatin (LIPITOR) 20 mg tablet Take 20 mg by mouth. 03/11/19 21 Active aspirin (ECOTRIN EC) 81 mg Tablet, Delayed Release (E.C.) TK 1 T PO QAM 02/09/20 20 Active HYDROcodone-ac etaminophen (NORCO) 5-325 mg tablet 03/13/19 21 Active insulin lispro (HumaLOG) 100 unit/mL vial INJECT SUBCUTANEOUSLY WITH MEALS BY INSULIN PUMP 50 UNITS PER DAY OR DIRECTED 10/11/19 20 Active HumaLOG U-100 Insulin 100 unit/mL vial INJ 50 UNI SC PER DAY WC BY INSULIN PUMP OR UTD 01/01/20 20 Active levothyroxine 100 mcg tablet 01/01/20 20 Active midodrine (PROAMATINE) 5 mg tablet Take 5 mg by mouth. 03/07/20 20 Active sodium chloride 1 gram tablet TK 1 T PO BID 02/02/20 20 Active Eliquis 5 mg tablet TK 1 T PO BID 60 Tablet 03/14/19 21 Active Active Problems Problem Noted Date Diagnosed Date Splenic infarction 03/14/2020 Family History Medical History Relation Name Comments Cancer Brother 2 Cancer Father Heart Disease Father Diabetes Mother Heart Disease Mother Leukemia Sister 3 Relation Name Status Comments Brother 1 Alive Brother 2 Alive Brother 3 Alive Brother 4 Brother 5 Father Mother Sister 1 Alive Sister 2 Alive Sister 3 Social History Tobacco Use Types Packs/Day Years Used Date Smoking Tobacco: Every Day Cigarettes Alcohol Use Standard Drinks/Week Comments Not Currently 0 (1 standard drink = 0.6 oz pur e alcohol) Comments Unknown Sex and Gender Information Value Date Recorded Sex Assigned at Not on file 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 Gender Identity Not on file Sexual Orientation Not on file Last Filed Vital Signs Vital Sign Reading Time Taken Comments Blood Pressure 146/81 10/23/2020 11:41 AM CDT Pulse 70 10/23/2020 11:41 AM CDT Temperature 36.7 C (98 F) 10/23/2020 11:41 AM CDT Respiratory Rate - - Oxygen Saturation 97% 10/23/2020 11:41 AM CDT Inhaled Oxygen Concentration - - Weight 45 kg (99 lb 1.6 oz) 10/23/2020 11:41 AM CDT Height 160 cm (5' 3) 10/23/2020 11:41 AM CDT Body Mass Index 17.55 10/23/2020 11:41 AM CDT Plan of Treatment Health Maintenance Due Date Last Done Comments DIABETES MICROALBUMIN ANNUAL SCREEN 08/22/1975 LDL CHOLESTEROL ANNUAL 08/22/1975 DTAP/TDAP/TD VACCINES (1 - Tdap) 1976 PNEUMOCOCCAL VACCINE 50+ YEA RS (1 of 2 - PCV) 1976 COLORECTAL SCREENING 2002 Colorectal Cancer Screening 2002 FIT-DNA Q 3 years 2002 FIT/FOBT Q 1 year 2002 Flex Sig/CT Colonography Q 5 years 2002 ZOSTER VACCINE (1 of 2) 08/22/2007 RSV VACCINE (60+ or ) (1 - Risk 60-74 years 1-dose series) 2017 DIABETES HBA1C Q 6 MONTHS 06/16/20212020, 09/11/2020, 06/07/2020, Additional history exists DIABETES ANNUAL FOOT EXAM 09/17/2021 09/17/2020 DIABETES ANNUAL RETINAL EXAM 11/06/202103/2020, 09/26/2020, 09/26/2020, Additional history exists BREAST CANCER SCREENING 12/25/2021 12/26/19 21, 12/25/2020, 12/09/2019, Additional history exists OSTEOPOROSIS SCREENING 03/10/2024 03/10/2019 INFLUENZA VACCINE (#1) 2024 Insurance MEDICARE PART A AND B GENERIC PAYOR Care Teams Race Relations Professor Relationship Specialty Start Date End Date Bin Almanzar MD [address] [place] [address] PCP - General Internal Medicine 02/16/20
--- OUTSIDE RECORDS SUMMARY | 2024-09-09 18:02 | XMS_ITS | Encounter Summary ---
Author Organization [facility] Address [address] [place] [address] Care Team Providers Care Mail Deliverer Name Role Phone Bin Almanzar MD Primary Care Provider Reason for Visit * Reason Onset Date Comments Medical Question/Miscellaneous 08/09/2024 Encounter Details Date Type Department Care Team (Late st Contact Info) Description 08/09/2024 Telephone [facility] Primary Care at [address] [place] [address] Bin Almanzar MD [address] [place] [address] [address] [place] [address] Medical Question/Miscellaneous Social History Tobacco Use Types Packs/Day Years Used Date Smoking Tobacco: Every Day Smokeless Tobacco: Never Alcohol Use Standard Drinks/Week Comments No 0 (1 standard drink = 0.6 oz pur e alcohol) AUDIT-C Answer Date Recorded Q1: How often do you have a drink containing alcohol? Never 04/05/2023 Q2: How many drinks containi ng alcohol do you have on a typical day when you are drinking? Patient does not drink Q3: How often do you have si x or more drinks on one occasion? 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 Confirmed that fax was submitted to the incorrect fax number and provided the caller with the correct one. Caller stated that it was for a medication review. They are wanting the Provide to consider prescribing a Statin medication for the patient and if a statin isn't prescribed; then an exclusion form can be submitted. Does message need to be routed? 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
--- OUTSIDE RECORDS SUMMARY | 2024-09-09 18:02 | XMS_ITS | Clinical Summary ---
Author Organization [facility]CS Group [facility] Address [address] [address] Phone Care Team Providers Care Road Builder Name Role Phone YohanBin Primary Care Provider [phone] Allergies Active Allergy Reactions Criticality Noted Date Comments Codeine Other (see comments) Medium 03/14/2020 Medications aspirin (ST DEEDEE) 81 MG EC tablet Take 81 mg by mouth 1 (one) time each day Active cyanocobalamin (VITAMIN B-12) 1000 MCG tablet Take 1,000 mcg by mouth 1 (one) time each day Active gabapentin (NEURONTIN) 300 MG capsule Take 300 mg by mouth in the morning and 300 mg in the evening and 300 mg before bedtime. Active insulin lispro (HumaLOG) 100 UNIT/ML injection Inject under the skin 3 (three) times a day before meals Active HYDROcodone-blank taminophen (NORCO) 5-325 MG per tablet Take 1 tablet by mouth every 6 (six) hours if needed for moderate pain Active Ferrous Fumarate (Iron) 18 MG tablet controlled-rele ase Take by mouth Active levothyroxine (SYNTHROID, LEVOTHROID) 100 MCG tablet Take 50 mcg by mouth 1 (one) time each day Active sodium chloride 1 g tablet Take 1 g by mouth in the morning and 1 g in the evening and 1 g before bedtime. Active cholecalciferol (VITAMIN D-3) 25 MCG (1000 UT) tablet Take 1,000 Units by mouth 1 (one) time each day Active midodrine (PROAMATINE) 5 MG tablet Take 1 tablet (5 mg total) by mouth in the morning and 1 tablet (5 mg total) in the evening. 60 tablet 11 08/15/2021 Active Active Problems Problem Noted Date Diagnosed Date Chronic kidney disease stage 3A 04/13/2021 Overview (04/13/2021): LENY 1.26/GFR 46 Type 1 diabetes mellitus 04/13/2021 Overview (04/13/2021): INSULIN PUMP Hypothyroidism 04/13/2021 Fatigue 04/13/2021 Iron deficiency anemia 04/13/2021 Gastroparesis due to type 1 diabetes mellitus Tobacco user 04/13/2021 Overview (04/13/2021): 2 PACKS/WEEK Pernicious anemia 04/13/2021 Vitamin D deficiency 04/13/2021 Disorder of the autonomic nervous system 022 Dyspnea 04/13/2021 Urinary tract infectious disease 04/13/2021 Resolved Problems Problem Noted Date Diagnosed Date Resolved Date Splenic hemorrhage 04/13/2021 Overview (04/13/2021): FEBRUARY 2020- [facility]- HYPERCOAG WORK-UP AND CTA [facility] Acquired thrombophilia 04/13/202104/14 Overview (04/13/2021): LOW- FEB 2020 W SPLENIC INFARCT- TO BE RECHECKED Family History Medical History Relation Comments Diabetes type I Mother at age 62. Diabetes type I Sibling Relation Status Comments Father (Age 82) Mother Sibling Alive Social History Tobacco Use Types Packs/Day Years Used Date Smoking Tobacco: Every Day Cigarettes Smokeless Tobacco: Never Alcohol Use Standard Drinks/Week Comments Yes 0 (1 standard drink = 0.6 oz pur e alcohol) Social Comments Unknown Sex and Gender Information Value Date Recorded Sex Assigned at Not on file Legal Sex Female 11:06 PM EST Gender Identity Not on file Sexual Orientation Not on file Last Filed Vital Signs Vital Sign Reading Time Taken Comments Blood Pressure 100/68 04/14/2021 11:47 AM TOP LIFT TRIMMER Pulse 76 04/14/2021 11:47 AM TOP LIFT TRIMMER Temperature 36.8 C (98.2 F) 04/14/2021 11:47 AM TOP LIFT TRIMMER Respiratory Rate - - Oxygen Saturation 98% 04/14/2021 11:47 AM TOP LIFT TRIMMER Inhaled Oxygen Concentration - - Weight 47.2 kg (104 lb) 04/14/2021 11:47 AM TOP LIFT TRIMMER Height 161.5 cm (5' 3.6) 04/14/2021 11:47 AM CS T Body Mass Index 18.08 04/14/2021 11:47 AM TOP LIFT TRIMMER Plan of Treatment Health Maintenance Due Date Last Done Comments Breast Cancer Screening 1955 Pneumococcal Vaccine: 50+ Ye ars (1 of 2 - PCV) 1976 Colorectal Cancer Screening: Annual FOBT 2006 Colorectal Cancer Screening: Colonoscopy 2006 Colorectal Cancer Screening: Sigmoidoscopy 2006 Diabetes: Ophthalmology Exam 04/13/2021 Diabetes: Pedal Pulse Checked 04/13/2021 Diabetes: Sensory Foot Exam 04/13/2021 Diabetes: Visual Foot Exam 04/13/2021 Diabetes: Hemoglobin A1C 06/19/2021 03/21/2021 Influenza Vaccine (Season Ended) 2024 Hepatitis B Vaccine Aged Out No longe r eligible based on patient's age to complete this topic Insurance [employer] Care Teams Road Builder Relationship Specialty Start Date End Date Bin Almanzar [address] [place] [address] DR [address] [place], [place] [id number] PCP - General Internal Medicine 04/14/21
--- OUTSIDE RECORDS SUMMARY | 2024-09-09 18:02 | XMS_ITS | Encounter Summary ---
Author Organization [facility] Healthcare Address [address] [place] [address] Care Team Providers Care Print Inspector Name Role Phone Bin Almanzar MD Primary Care Provider Encounter Details Date Type Department Care Team (Late st Contact Info) Description 07/26/2024 Results Follow-Up [facility] Medical [facility] Diabetes Endocrine Care at [address] [id number] Lauren Chase, [address] [place] [address] [address] [place] [address] Thyroid Function Strandquist, T4, free Social History Tobacco Use Types Packs/Day Years [...] points, staff should administer the PHQ-9) 0 05/01/2024 Comments No Sex and Gender Information Value Date Recorded Sex Assigned at Not on file Legal Sex Female 11:55 PM RESTAURANT COOK Gender Identity Not on file Sexual Orientation Not on file documented as of this encounter Ordered Prescriptions Prescription Sig Dispense Quantity Refills Last Filled Start Date End Date levothyroxine (SYNTHROID) 100 mcg tablet Take 1 tablet (100 mcg total) by mouth daily 30 tablet 11 07/26/2024 07/26/2025 documented in this encounter Plan of Treatment Scheduled Orders Name Type Priority Associated Diagnoses Orde r Schedule Thyroid Function Strandquist Lab Routine Hypothyroidism, unspecified type Expected: 09/25/2024 (Approximate), Expires: 07/26/2025 documented as of this encounter Visit Diagnoses Diagnosis Hypothyroidism, unspecified type- Primary documented in this encounter Discontinued Medications Medication Sig Discontinue Reason Start Date End Da te levothyroxine (SYNTHROID) 88 mcg tablet Take 1 tablet (88 mcg total) by mouth daily Therapy completed 04/17/2024 07/26/2024 documented as of this encounter Additional Health Concerns Infection Onset Date Last Indicated Resolved Time 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
--- OUTSIDE RECORDS SUMMARY | 2024-09-09 18:02 | XMS_ITS | Patient Health Record ---
Author Organization [facility] Address [address] [place] [phone] Care Team Providers Care Blanket Cutter Hand Name Role Phone Liz Myranda Unavailable Unavail able REMINGTON VELAZQUEZA Unavailable [phone] Allergies No Known Allergies Reason For Referral No Information Medications Medication SIG (Take, Route, Frequency, Duration) Notes Start Date End Date Status HYDROcodone-Acetaminophen 5-325 MG 1 tablet as needed Orally every 6 hrs Active NovoLOG 100 UNIT/ML as directed Injectio n pump Active Levothyroxine Sodium 75 MCG 1 tablet in the morning on an empty stomach Orally Once a day Active Sodium Chloride 1 GM 2 tabs Orally twice a day plus extra as needed Active Midodrine HCl 5 MG 1 tablet Orally Twic e a day; Duration: 90 days 04/08/2022 Active Aspir-Low 81 MG 1 tablet Orally Once a day Active Vitamin D3 250 MCG (48549 UT) as directed Orally Active Cyanocobalamin ER 1000 MCG 1 tablet Oral ly Once a day Active Gabapentin 300 MG 1 capsule Orally Twi ce a Day Active Social History Tobacco Use: Social History Observation Description Date Details (start date - stop date) Current Smoker NA - NA Tobacco Use/Smoking Question Answer Notes Tobacco use: current smoker How often do you smoke cigarettes? every day How many cigarettes a day do you smoke? 5 or les s How soon after you wake up d o you smoke your first cigarette? 31-60 minutes Are you interested in quitting? Not ready to vega t Additional Findings: Tobacco User Heavy cigarett e smoker (20-39 cigs/day) Problems Problem Type SNOMED Code ICD Code Onset Dates Problem Status W/U Status Risk Notes Problem Mixed hyperlipidemia (750974368) Mixed hyperlipidemia (E78.2) Active confirmed Problem Chronic kidney disease stage 3A (disorder) (374881115) Chronic kidney disease, stage 3a (N18.31) Active confirmed Problem Disorder of autonomic nervous system (84744554) Autonomic dysfunction (G90.9) Active confirmed Problem Disorder of nervous system due to type 1 diabetes mellitus (disorder) (560331068) Type 1 diabetes mellitus with other neurologic complication (E10.49) Active confirmed Problem Abnormal gait (27938034) Gait disturbance (R26.9) Active confirmed Problem Acute hyperkalemia (3438218) Acute hyperkalemia (E87.5) Active confirmed Vital Signs Heart Rate 70 /min 11/03/2023 Temperature 97.9 degrees Fahrenheit 11/03/2023 Respiratory Rate 18 /min 11/03/2023 Oximetry 98 % 11/03/2023 Blood pressure diastolic 72 mm Hg 11/03/2023 Weight-kg 44.27 kg 11/03/2023 Blood pressure systolic 132 mm Hg 11/03/2023 Weight 97.6 lbs 11/03/2023 Encounters Encounter Location Date Provider Diagnosis [address] [phone] 11/03/2023 ASHLEY JUAN Chronic kidney disease, stage 3a N18.31 ; Autonomic dysfunction G90.9 ; Type 1 diabetes mellitus with other neurologic complication E10.49 ; Gait disturbance R26.9 ; Mixed hyperlipidemia E78.2 and Acute hyperkalemia E87.5 Assessments Encounter Date Diagnosis (ICD Code) Assessment Notes Treatment Notes Treatment Clinical Notes Section Notes 11/03/2023 Chronic kidney disease, stage 3a (ICD-10 - N18.31) 11/03/2023 Autonomic dysfunction (ICD-10 - G90.9) 11/03/2023 Type 1 diabetes mellitus with other neurologic complication (ICD-10 - E10.49) 11/03/2023 Gait disturbance (ICD-10 - R26.9) 11/03/2023 Mixed hyperlipidemia (ICD-10 - E78.2) 11/03/2023 Acute hyperkalemia (ICD-10 - E87.5) Plan Of Treatment Pending Test Test Name Order Date Chest X-ray PA and lateral 07/01/2022 Thyroid Panel With TSH 11/03/2023 Urinalysis, Complete 11/03/2023 Urinalysis, Complete 07/01/2022 Urine Culture and Sensitivity 07/01/2022 Urine-spot creatinine 07/01/2022 Urine-spot creatinine 11/03/2023 [id number]/RANDOM 11/03/2023 [id number] 07/01/2022 Insurance Providers Payer Name Payer Address Payer Phone Subscriber Number Group Number Insured Name Patient Relationship to Insured Coverage Start Date Coverage End Date Colin MACKAY [address] [place] [address] [id number] Josh Marie Self - patient is the insured Medical (General) History Medical History History ICD Code Problems: Problem:Problem
--- OUTSIDE RECORDS SUMMARY | 2024-09-09 18:02 | XMS_ITS ---
Author Organization [facility] Address [address] [place] [phone] Care Team Providers Care Forest Fire Fighters Dispatcher Name Role Phone IgnacionazAdriana Palma Unavailable Unavail able REMINGTON MARTINEZA Unavailable [phone] Allergies No Known Allergies Medications Medication SIG (Take, Route, Frequency, Duration) Notes Start Date End Date Status Midodrine HCl 5 MG 1 tablet Orally Twic e a day; Duration: 90 days 04/08/2022 Active Aspir-Low 81 MG 1 tablet Orally Once a day Active Vitamin D3 250 MCG (58155 UT) as directed Orally Active Cyanocobalamin ER 1000 MCG 1 tablet Oral ly Once a day Active HYDROcodone-Acetaminophen 5-325 MG 1 tablet as needed Orally every 6 hrs Active NovoLOG 100 UNIT/ML as directed Injectio n pump Active Levothyroxine Sodium 75 MCG 1 tablet in the morning on an empty stomach Orally Once a day Active Sodium Chloride 1 GM 2 tabs Orally twice a day plus extra as needed Active Gabapentin 300 MG 1 capsule Orally [...] Problem Status W/U Status Risk Notes Problem Acute hyperkalemia (7490481) Acute hyperkalemia (E87.5) Active confirmed Vital Signs Temperature 97.9 degrees Fahrenheit 08/28/20 24 Blood pressure systolic 132 mm Hg 11/03/19 24 Blood pressure diastolic 72 mm Hg 024 Heart Rate 70 /min 11/03/2023 Respiratory Rate 18 /min 11/03/2023 Weight 97.6 lbs 11/03/2023 Oximetry 98 % 11/03/2023 Weight-kg 44.27 kg 11/03/2023 Encounters Encounter Location Date Provider Diagnosis [facility] [address] [phone] 11/03/2023 ASHLEY MARTINEZ Chronic kidney disease, stage 3a N18.31 ; [...] Treatment Pending Test Test Name Order Date Thyroid Panel With TSH 11/03/2023 Urinalysis, Complete 11/03/2023 Urine-spot creatinine 11/03/2023 [id number]/RANDOM 11/03/2023 Next Appt Details Follow Up: 1 Year,you look a wesome- YOU DO NOT QUALIFY FOR SGLT-2 MEDS LIKE FARXIGA/ JARDIANCE DUE TO BEING TYPE 1. ALSO YOUR POTSSIUM IS TOO HIGH FOR MEDS LIKE KERRENDIA OR SPIRONOLACTONE.,PLEASE FOLLOW LOW POTASSIUM DIET.,WORK ON LOWERING YOUR CHOLESTEROL- AVOID FRIED FOODS AND WE WILL UPDATE YOUR THYROID LABS WITH YOUR NEXT LABS., Reason: Progress Notes * Josh MARIE:[birth year] (69 yo F)Acc No.[id number]:11/03/2023 Progress Notes Patient: Josh FREEMAN Provider: Artis Martinez MD :1955 A ge:68 Y S ex:Female Date:11/03/2023 Address:[address] [place], [place] [id number] Subjective: * Chief Complaints: * * HPI: T ransition of Care: 68 WF WITH CKD 3A, AUTONOMIC DYSFUNCTION W SYNCOPE/ ORTHOSTASIS REQUIRING MIDODRINE, DM1, HLD, GAIT DISTURBANCE HERE FOR F/U. SHE IS DOING WELL. * Medical History: P roblems: Problem:Problem. * Surgical History: D enies Past Surgical History. * Hospitalization/Major Diagno stic Procedure: D enies Past Hospitalization. * Family History: N on-Contributory. * Social History: T obacco Use: T obacco Use/Smoking T obacco use: c urrent smoker H ow often do you smoke cigarettes? e very day H ow many cigarettes a day do you smoke? 5 or less H ow soon after you wake up do you smoke your first cigarette? 3 1-60 minutes A re you interested in quitting? N ot ready to quit A dditional Findings: Tobacco User H eavy cigarette smoker (20-39 cigs/day) * Medications: T aking Sodium Chloride 1 GM Tablet 2 tabs Orally twice a day plus extra as needed, Taking Levothyroxine Sodium 75 MCG Tablet 1 tablet in the morning on an empty stomach Orally Once a day , Taking NovoLOG 100 UNIT/ML Solution as directed Injection pump , Taking HYDROcodone-Acetaminophen 5-325 MG Tablet 1 tablet as needed Orally every 6 hrs , Taking Gabapentin 300 MG Capsule 1 capsule Orally Twice a Day , Taking Cyanocobalamin ER 1000 MCG Tablet Extended Release 1 tablet Orally Once a day , Taking Vitamin D3 250 MCG (96671 UT) Tablet as directed Orally , Taking Aspir- Low 81 MG Tablet Delayed Release 1 tablet Orally Once a day , Taking Midodrine HCl 5 MG Tablet 1 tablet Orally Twice a day , Discontinued Atorvastatin Calcium 20 MG Tablet 1 tablet Orally Once a day , Medication List reviewed and reconciled with the patient * Allergies: N .K.D.A. Objective: * Vitals: B P:132/72mm Hg, HR:70/min, RR:18/min, Temp:97.9F, Oxygen sat %:98%, Wt:97.6lbs, Wt-k.27 kg. * Examination: G eneral Examination: ... J CIRILO2023 NA 140 K 5.5 CL 104 BICRB 25 BUN 26 CREAT 1.27 GLUC 215 CA 10.2 T SITA 0.5 ALB 4 ALK PHOS 92 ALT 9 AST 26 CHOL 215 TRIG 108 HDL 76 LDL 117 HGB A1C 7.7 EGFR 47 JUNE 29, 2023 BUN 22 CREAT 1.29 K 4.6 EGFR 46 CHOL 189 TRIG 71 HDL 85 LDL 90 HGB A1C 7.7 EGFR 46. Assessment: * Assessment: 1. C hronic kidney disease, stage 3a - N18.31 (Primary) 2 . A utonomic dysfunction - G90.9 3 . T ype 1 diabetes mellitus with other neurologic complication - E10.49 4 . G ait disturbance - R26.9 5 . M ixed hyperlipidemia - E78.2 6 . A cute hyperkalemia - E87.5 Plan: * Treatment: 2. M ixed hyperlipidemia L AB: Thyroid Panel With TSH * Follow Up: 1 Year,you look awesome- YOU DO NOT QUALIFY FOR SGLT-2 MEDS LIKE FARXIGA/ JARDIANCE DUE TO BEING TYPE 1. ALSO YOUR POTSSIUM IS TOO HIGH FOR MEDS LIKE KERRENDIA OR SPIRONOLACTONE.,PLEASE FOLLOW LOW POTASSIUM DIET.,WORK ON LOWERING YOUR CHOLESTEROL- AVOID FRIED FOODS AND WE WILL UPDATE YOUR THYROID LABS WITH YOUR NEXT LABS. * Billing Information: * Visit Code: 56542 Office Visit, Est Pt., Level 3. 30666 Office Visit, Est Pt., Level 4. * Procedure Codes: * Electronic signature of ANETTE MARTINEZ MD on 09/09/2024 at 06:01 PM CDT Sign off status: Pending * Provider: Artis Martinez MD Date: 11/03/2023 Generated for Arron banda/Estee/Mushtaqitting on: 09/09/2024 06:01 PM CDT History and Physical Notes * Examination Category Sub-Category Detail Notes Category Not es General Examination ... SEPTEMBER 28 NA 140 K 5.5 CL 104 BICRB 25 BUN 26 CREAT 1.27 GLUC 215 CA 10.2 T SITA 0.5 ALB 4 ALK PHOS 92 ALT 9 AST 26 CHOL 215 TRIG 108 HDL 76 LDL 117 HGB A1C 7.7 EGFR 47 JUNE 29, 2023 BUN 22 CREAT 1.29 K 4.6 EGFR 46 CHOL 189 TRIG 71 HDL 85 LDL 90 HGB A1C 7.7 EGFR 46
[2024-09-09 18:03] VITALS: BP 145/83; PULSE 74; RESP 18; TEMP 36.4; O2SAT 98
--- OUTSIDE RECORDS SUMMARY | 2024-09-09 18:04 | XMS_ITS | Encounter Summary ---
Author Organization [facility] Healthcare Address [address] [place] [address] Care Team Providers Care Field Artillery Basic Name Role Phone Bin Almanzar MD Primary Care Provider Reason for Visit * Reason Onset Date Comments Scheduling Appointments 12/24/2020 confirmi ng mamm appt- no answer Encounter Details Date Type Department Care Team (Late st Contact Info) Description 12/24/2020 Telephone [facility] [address] [place] [address] Minnie Boss RT Scheduling Appointments (confirming mamm appt- no answer) Social History Tobacco Use Types Packs/Day Years Used Date Smoking Tobacco: Every Day Smokeless Tobacco: Never Alcohol Use Standard Drinks/Week Comments No 0 (1 standard drink = 0.6 oz pur e alcohol) PHQ-2 Answer Date Recorded PHQ-2 Total Score (If total score is 3 or more points, staff should administer the PHQ-9) 0 12/23/2020 Comments No Sex and Gender Information Value Date Recorded Sex Assigned at Not on file Legal Sex Female 11:55 PM HOOD MAKER Gender Identity Not on file Sexual Orientation Not on file documented as of this encounter Plan of Treatment Not on file documented as of this encounter Visit Diagnoses Not on filedocumented in this encounter Additional Health Concerns Infection Onset Date Last Indicated Resolved Time 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
--- OUTSIDE RECORDS SUMMARY | 2024-09-09 18:04 | XMS_ITS | Clinical Summary ---
Author Organization [facility] Address [address] [place] [address] Care Team Providers Care Mail Messenger Contractor Name Role Phone Unavailable Primary Care Provider Unavailabl e Social History Tobacco Use Types Packs/Day Years Used Date Smoking Tobacco: Never Assessed Comments Unknown Sex and Gender Information Value Date Recorded Sex Assigned at Not on file Legal Sex Female 7:07 PM CDT Gender Identity Not on file Sexual Orientation Not on file Plan of Treatment Health Maintenance Due Date Last Done Comments Colorectal Cancer Screening Colonoscopy (10 Years) 1955 Hepatitis C 08/22/1975 DTaP, Tdap and Td Vaccines ( 1 - Tdap) 1976 Mammogram Screening 1997 Pneumococcal Vaccine: 50+ Ye ars (1 of 1 - PCV) 08/22/2007 Zoster Vaccines (1 of 2) 08/22/2007 Dexa Scan (General) 2022 COVID-19 Vaccine ( - 2023-2 5 season) 2023 RSV Immunization or 60+ Years (1 - 1-dose 75+ series) 2032 Meningococcal B Vaccine Aged Out No l onger eligible based on patient's age to complete this topic Meningococcal Vaccine Aged Out No alexsandra broderick eligible based on patient's age to complete this topic RSV Immunizations Under 20 Months Aged Out No longer eligible based on patient's age to complete this topic
--- OUTSIDE RECORDS SUMMARY | 2024-09-09 18:05 | XMS_ITS | Clinical Summary ---
Author Organization [facility] Address [address] [place] [address] Care Team Providers Care Commercial Finance Analyst Name Role Phone Chitra Almanzar MD Primary Care Provider Allergies Active Allergy Reactions Criticality Noted Date Comments Acyclovir Other (See comments) Reaction: abdominal distress, Codeine Medications blood glucose diagnostic (ONETOUCH ULTRA TEST) strip test by fingerstick route test 5 x a day 200 strip 3 09/11/19 16 Active BD LUER-DEEDEE SYRINGE 3 mL 23 x 1 syringe USE DIRECTED BY PHYSICIAN 3 Syringe 3 02/18/20 19 Active aspirin 81 mg enteric coated tablet TK 1 T PO QAM 02/09/20 20 Active sodium chloride 1 gram tablet TK 1 T PO BID 02/02/20 20 Active midodrine (PROAMATINE) 5 mg tablet Take 1 tablet (5 mg total) by mouth 2 (two) times a day 180 tablet 3 03/25/19 22 Active cholecalciferol (VITAMIN D-3) 25 mcg (1,000 unit) tablet Take 1 tablet (1,000 Units total) by mouth daily Active FERROUS FUMARATE-FOLIC ACID ORAL Take by mouth Active blood-glucose transmitter (Dexcom G6 Transmitter) device CHANGE EVERY 90 DAYS 1 each 3 09/23/19 24 Active infusion set for insulin pump infusion set 1 Device every 3 (three) days 30 each 3 10/08/19 24 Active insulin pump syringe (MiniMed Syringe [place]) 3 mL misc 1 Device every 3 (three) days 30 each 3 10/08/19 24 Active cyanocobalamin (Vitamin B-12) 1,000 mcg/mL injection ADMINISTER 1 ML(1000 MCG) IN THE MUSCLE EVERY 30 DAYS DIRECTED 3 mL 10/22/19 24 Active insulin aspart (NovoLOG) 100 unit/mL vial for injectionIndicatio ns:Type 1 diabetes mellitus with hyperglycemia (HCC) INJECT 50 UNITS VIA INSULIN PUMP EVERY DAY 50 mL 3 01/06/20 24 Active blood-glucose meter,continuous (Dexcom G7 Hotel Valet Attendant) misc 1 Device continuously To continuously monitor blood sugar e10.65 1 each 1 01/27/20 24 Active Dexcom G7 Sensor device 1 Device continuously . Change every 10 days. E11.65 10 each 3 01/27/20 24 Active atorvastatin (LIPITOR) 20 mg tabletIndications: Aortic atherosclerosis Take 1 tablet (20 mg total) by mouth daily 90 tablet 3 05/01/19 25 Active levothyroxine (SYNTHROID) 100 mcg tablet Take 1 tablet (100 mcg total) by mouth daily 30 tablet 07/27/19 25 026 Active HYDROcodone-acetam inophen (NORCO) 5-325 mg per tabletIndications: Lower Back Pain Take 1 tablet by mouth every 6 (six) hours as needed for pain 30 tablet 08/23/19 25 Active HYDROcodone-acetam inophen (NORCO) 5-325 mg per tabletIndications: Lower Back Pain Take 1 tablet by mouth every 6 (six) hours as needed for pain 30 tablet 07/21/19 25 025 Discontin ued(Reord er) Active Problems Problem Noted Date Diagnosed Date Protein-calorie malnutrition, unspecified severi ty 10/08/2023 Stage 3b chronic kidney disease 10/08/2023 Gastroparesis due to DM 06/24/2021 Medicare annual wellness visit, subsequent 12/23 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 Complicated with retinopathy, gastropathy, nephropathy/CKD and neuropathy. On insulin pump and DexCom CGM- Patient with hypoglycemia unawareness. Control : CGM data showing fluctuation in sugars with less frequent hypoglycemia A1c 7.3% on 12/24/22 A1c 7.2% on 09/22/22 A1c 7.6% on 06/23/22 A1c 7.7% on 03/27/22 A1c 7.5% on 12/24/21 A1c 7.4% on 09/17/21 Kidney: CKD with GFR 39 on 09/22/22 Neuropathy : symptomatic on medication. Eye : had retinopathy Plan: Patient asked to make sure to eat a breakfast to prevent low sugars Continue same basal rate. Continue bolus before meals. Monitor sugars with CGM- Dexcom. Hypoglycemia symptoms and treatment reviewed with patient. Call if having low sugars. Ophthalmology exam on regular basis. Assessment & Plan (10/16/2022 12:27 PM CDT): The patient was counseled on a heart-healthy, diabetic-friendly diet, as well as life-style modification. Education provided on the diagnosis and risks of the disease. We will continue to monitor routine labs. Additionally, She was counseled on routine diabetic eye exams, foot exams, and other preventive care. Assessment & Plan (09/29/2022 10:37 AM CDT): Diagnosed at the age of 32. Complicated with retinopathy, gastropathy, nephropathy/CKD and neuropathy. On insulin pump and DexCom CGM- Patient with hypoglycemia unawareness. Control : CGM data showing frequent low sugars during the day Patient not eating till afternoon A1c 7.2% on 09/22/22 A1c 7.6% on 06/23/22 A1c 7.7% on 03/27/22 A1c 7.5% on 12/24/21 A1c 7.4% on 09/17/21 Kidney: CKD with GFR 39 on 09/22/22 Neuropathy : symptomatic on medication. Eye : had retinopathy Plan: Patient asked to make sure to eat a breakfast to prevent low sugars decrease basal rate from 7am-7 pm to 0.85 units/hr, Continue bolus before meals. Monitor sugars with CGM- Dexcom. Hypoglycemia symptoms and treatment reviewed with patient. Call if having low sugars. Ophthalmology exam on regular basis. Assessment & Plan (07/02/2022 11:46 AM CDT): Diagnosed at the age of 32. Complicated with retinopathy, gastropathy, nephropathy/CKD and neuropathy. On insulin pump and DexCom CGM- Patient with hypoglycemia unawareness. Control : CGM data showing increased frequency in low sugars during the day A1c 7.6% on 06/23/22 A1c 7.7% on 03/27/22 A1c 7.5% on 12/24/21 A1c 7.4% on 09/17/21 Kidney: CKD with GFR 43 on 06/23/22 Neuropathy : symptomatic on medication. Eye : had retinopathy Plan: decrease basal rate from 7am-7 pm to 0.9 units/hr, Continue bolus before meals. Monitor sugars with CGM- Dexcom. Hypoglycemia symptoms and treatment reviewed with patient. Call if having low sugars. Ophthalmology exam on regular basis. Assessment & Plan (04/07/2022 2:23 PM FAMILY LAW PARALEGAL): Diagnosed at the age of 32. Complicated with retinopathy, gastropathy, nephropathy/CKD and neuropathy. On insulin pump and DexCom CGM- Patient with hypoglycemia unawareness. Control : CGM data showing some daytime high sugars, with decrease in frequency of hypoglycemia A1c 7.7% on 03/27/22 A1c 7.5% on 12/24/21 A1c 7.4% on 09/17/21 A1c 7.5% on 06/17/21 A1c 7.7% on 03/21/21 Kidney: CKD with GFR 42 on 03/27/22 Neuropathy : symptomatic on medication. Eye : had retinopathy Plan: Patient to continue same basal rate. Continue bolus before meals. Monitor sugars with CGM- Dexcom. Hypoglycemia symptoms and treatment reviewed with patient. Call if having low sugars. Ophthalmology exam on regular basis. Assessment & Plan (12/30/2021 9:40 AM CDT): Diagnosed at the age of 32. Complicated with retinopathy, gastropathy, nephropathy/CKD and neuropathy. On insulin pump and DexCom CGM- Patient with hypoglycemia unawareness. Control : CGM data showing some daytime high sugars, with decrease in frequency of hypoglycemia A1c 7.5% on 12/24/21 A1c 7.4% on 09/17/21 A1c 7.5% on 06/17/21 A1c 7.7% on 03/21/21 Kidney: CKD with GFR 42 on 12/24/21 Neuropathy : symptomatic on medication. Eye : had retinopathy Plan: Patient to continue same basal rate. Continue bolus before meals. Monitor sugars with CGM- Dexcom. Hypoglycemia symptoms and treatment reviewed with patient. Call if having low sugars. Ophthalmology exam on regular basis. Assessment & Plan (09/24/2021 12:10 PM CDT): Diagnosed at the age of 32. Complicated with retinopathy, gastropathy, nephropathy/CKD and neuropathy. On insulin pump and DexCom CGM- Patient with hypoglycemia unawareness. Control : reasonable control A1c 7.4% on 09/17/21 A1c 7.5% on 06/17/21 A1c 7.7% on 03/21/21 A1c 6.8% on 12/16/20 A1c 7.5% on 09/17/20 Kidney: CKD with GFR 38 on 09/17/21 Neuropathy : symptomatic on medication. Eye : had retinopathy Plan: Patient to continue same basal rate. Continue bolus before meals. Monitor sugars with CGM- Dexcom. Hypoglycemia symptoms and treatment reviewed with patient. Call if having low sugars. Ophthalmology exam on regular basis. Assessment & Plan (06/24/2021 11:34 AM CDT): Diagnosed at the age of 32. Complicated with retinopathy, gastropathy, nephropathy/CKD and neuropathy. On insulin pump and DexCom CGM- Patient with hypoglycemia unawareness. Control : reasonable control A1c 7.5% on 06/17/21 A1c 7.7% on 03/21/21 A1c 6.8% on 12/16/20 A1c 7.5% on 09/17/20 Kidney: CKD with GFR 37 on 06/17/21 Neuropathy : symptomatic on medication. Eye : had retinopathy Plan: Patient to continue same basal rate. Continue bolus before meals. Monitor sugars with CGM- Dexcom. Hypoglycemia symptoms and treatment reviewed with patient. Call if having low sugars. Ophthalmology exam on regular basis. Assessment & Plan (03/25/2021 12:12 PM FAMILY LAW PARALEGAL): Diagnosed at the age of 32. Complicated with retinopathy, gastropathy, nephropathy/CKD and neuropathy. On insulin pump and DexCom CGM- Patient with hypoglycemia unawareness. Control : higher sugars during the holidays. A1c 7.7% on 03/21/21 A1c 6.8% on 12/16/20 A1c 7.5% on 09/17/20 A1c 7.5% on 06/07/20 A1c 7.4% in February/2020. A1c 7.2% on 09/20/2019 A1c 7.5% on 08/22/19. Kidney: CKD with GFR 39 on 12/16/20 Neuropathy : symptomatic on medication. Eye : had retinopathy Plan: Patient to continue same basal rate. Continue bolus before meals. Monitor sugars with CGM- Dexcom. Hypoglycemia symptoms and treatment reviewed with patient. Call if having low sugars. Ophthalmology exam on regular basis. Assessment & Plan (12/23/2020 2:44 PM CDT): Diagnosed at the age of 32. Complicated with retinopathy, gastropathy, nephropathy/CKD and neuropathy. On insulin pump and DexCom CGM- Patient with hypoglycemia unawareness. Control : improved control A1c 6.8% on 12/16/20 A1c 7.5% on 09/17/20 A1c 7.5% on 06/07/20 A1c 7.4% in February/2020. A1c 7.2% on 09/20/2019 A1c 7.5% on 08/22/19. Kidney: CKD with GFR 39 on 12/16/20 Neuropathy : symptomatic on medication. Eye : had retinopathy Plan: Patient to continue same basal rate. Continue bolus before meals. Monitor sugars with CGM- Dexcom. Hypoglycemia symptoms and treatment reviewed with patient. Call if having low sugars. Ophthalmology exam on regular basis. Assessment & Plan (09/17/2020 2:41 PM CDT): Diagnosed at the age of 32. Complicated with retinopathy, gastropathy, nephropathy/CKD and neuropathy. On insulin pump and DexCom CGM- Patient with hypoglycemia unawareness. Control : not at target- post-prandial hyperglycemia after lunch A1c 7.5% on 09/17/20 A1c 7.5% on 06/07/20 A1c 7.4% in February/2020. A1c 7.2% on 09/20/2019 A1c 7.5% on 08/22/19. Kidney: CKD with GFR 44 on 09/11/20 Neuropathy : symptomatic on medication. Eye : had retinopathy Plan: Patient to continue same basal rate. Increase bolus with lunch to 1: 20 carb ratio . Hypoglycemia symptoms and treatment reviewed with patient. Call if having low sugars. Ophthalmology exam on regular basis. Assessment & Plan (06/13/2020 2:30 PM CDT): Diagnosed at the age of 32. Complicated with retinopathy, gastropathy, nephropathy/CKD and neuropathy. On insulin pump and DexCom CGM- Patient with hypoglycemia unawareness. Control : CGM data reviewed 06/06-06/12/20 Hyperglycemia - werner phenomenon A1c 7.5% on 06/07/20 A1c 7.4% in February/2020. A1c 7.2% on 09/20/2019 A1c 7.5% on 08/22/19. A1c 6.8% on 02/17/19 A1c 7.3% on 11/18/18. A1c 7.0 on 07/22/18 A1c 6.8% on 03/03/18. Kidney: CKD with GFR 36 on 06/07/20 Neuropathy : symptomatic on medication. Eye : had retinopathy Plan: Patient to continue same basal rate since A1c stable Patient to bring records from CGM . Hypoglycemia symptoms and treatment reviewed with patient. Call if having low sugars. Ophthalmology exam on regular basis. Assessment & Plan (03/13/2020 11:42 AM FAMILY LAW PARALEGAL): Diagnosed at the age of 32. Complicated with retinopathy, gastropathy, nephropathy/CKD and neuropathy. On insulin pump and DexCom CGM- Patient reports hypoglycemia unawareness. Control : CGM data reviewed 03/08- 03/12 Hyperglycemia during the night as patient on lower basal rate during the night since her hospitalization in February A1c 7.4% in February/2020. A1c 7.2% on 09/20/2019 A1c 7.5% on 08/22/19. A1c 6.8% on 02/17/19 A1c 7.3% on 11/18/18. A1c 7.0 on 07/22/18 A1c 6.8% on 03/03/18. A1c 7.2% on 11/18/17 A1c was 8.2% on 07/29/17 A1c was 8.7% on 04/26/17 A1c was 7.9% on 02/01/17, but was 10 % earlier in 2017. Kidney: CKD with GFR 35 on 08/22/19. Neuropathy : symptomatic on medication. Eye : had retinopathy Plan: Increase basal rate To 0.4 units/hr from 12 am till 7 am Continue meal bolus. Suggested replacing Gatorade with sugar free fluids. Patient to bring records from CGM . Hypoglycemia symptoms and treatment reviewed with patient. Call if having low sugars. Ophthalmology exam on regular basis. 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 Check TSH on annual basis Assessment & Plan (09/29/2022 10:16 AM CDT): Patient is on levothyroxine 75 mcg - 6 days per week TSH was normal at 1.11 on 12/24/21 Plan: Continue same dose of Levothyroxine. Assessment & Plan (07/02/2022 11:05 AM CDT): Patient is on levothyroxine 75 mcg - 6 days per week TSH was normal at 1.11 on 12/24/21 Plan: Continue same dose of Levothyroxine. Assessment & Plan (04/07/2022 2:05 PM FAMILY LAW PARALEGAL): Patient is on levothyroxine 75 mcg - 6 days per week TSH was normal at 1.11 on 12/24/21 Plan: Continue same dose of Levothyroxine. Assessment & Plan (12/30/2021 9:16 AM CDT): Patient is on levothyroxine 75 mcg - 6 days per week TSH was normal at 1.11 on 12/24/21 Plan: Continue same dose of Levothyroxine. Assessment & Plan (09/24/2021 12:08 PM CDT): Patient is on levothyroxine 75 mcg /day . TSH not done Plan: Continue Levothyroxine 75 mcg tab /day TSH to be checked today Assessment & Plan (06/24/2021 10:37 AM CDT): Patient is on levothyroxine 50 mcg /day . TSH is now high at 26 on 06/17/21 Plan: Increase Levothyroxine 75 mcg tab /day TSH before next visit. Assessment & Plan (03/25/2021 12:13 PM FAMILY LAW PARALEGAL): Patient is on levothyroxine 50 mcg /day . TSH has been chronically low at 0.02 on 09/17/20- dose was decreased from 100 mcg/day Plan: Continue Levothyroxine 50 mcg tab /day TSH before next visit. Assessment & Plan (12/23/2020 2:10 PM CDT): Patient is on levothyroxine 50 mcg /day . TSH has been chronically low at 0.02 on 09/17/20- dose was decreased from 100 mcg/day Plan: Continue Levothyroxine 50 mcg tab /day Assessment & Plan (09/17/2020 2:39 PM CDT): Patient is on levothyroxine 75 mcg /day . TSH has been chronically low at 0.02 on 06/07/20- dose was decreased from 100 mcg/day TSH was not done Plan: Continue Levothyroxine to 75 mcg tab /day Repeat TSH this week I will adjust the dose if needed Assessment & Plan (06/13/2020 2:27 PM CDT): Patient has been still on levothyroxine 100 mcg /day till last week TSH has been chronically low at 0.02 on 06/07/20 Plan: Decrease Levothyroxine to 75 mcg tab /day Repeat TSH before next visit. Assessment & Plan (03/13/2020 11:44 AM FAMILY LAW PARALEGAL): Patient has been on levothyroxine 100 mcg /day TSH has been chronically low at 0.02 on 02/16/20 Plan: Decrease Levothyroxine to 75 mcg tab /day Repeat TSH before next visit. Assessment & Plan (12/07/2019 11:26 AM CDT): Patient clinically euthyroid - continue treatment with Levothyroxine per PCP Vitamin B deficiency 07/22/2013 Overview (06/11/2016): VITAMIN B DEFICIENCY NOS Smokes tobacco daily 01/25/2012 Overview (06/18/2017): Description: 01-25-2012 Assessment & Plan (10/16/2022 12:26 PM CDT): She was advised to quit smoking; the risks of continued tobacco use discussed. 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 02/09/2017 Overview (06/11/2016): IDIO PERIPH NEURPTHY NOS Type 1 diabetes mellitus without complication 07/23/19 14 02/09/2017 Overview (06/11/2016): DMI WO CMP NT ST UNCNTRL Menopause present 06/22/2012 02/09/2017 Overview (06/11/2016): Menopause Abdominal pain 01/25/2012 12/01/2018 Nausea with vomiting 01/25/2012 019 Constipation 01/25/2012 12/07/2019 Neurological disorder associ ated with type I diabetes mellitus 07/13/2011 02/09/2017 Overview (06/11/2016): Diabetic neuropathy, type I diabetes mellitus Diabetic gastroparesis 07/13/201102/09 Overview (06/11/2016): Gastroparesis diabeticorum Encounters Date Type Department Care Team Description 08/09/2024 Telephone [facility] Primary Care at [address] [phone] Chitra Almanzar MD Medical Question/Miscellaneou s 08/04/2024 Orders Only [address] [address] Rachel Ballard RN 08/04/2024 Orders Only [address] [address] Sima Glynn RN 08/04/2024 Orders Only [facility] at [address] [phone] Chitra Almanzar MD Acute renal failure, unspecified acute renal failure type (Primary Dx) 08/03/2024 Orders Only [address] [address] Rachel Ballard RN 08/03/2024 Orders Only [facility] Primary Care at [address] [address] Chitra Almanzar MD Acute renal failure, unspecified acute renal failure type (Primary Dx) 08/02/2024 Orders Only [facility] Primary Care at [address] [phone] Chitra Almanzar MD Dehydration (Primary Dx) 08/01/2024 1:15 PM CDT Office Visit [facility] Primary Care at [address] [phone] Chitra Almanzar MD 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) (Primary Dx); Body mass index (BMI) less than 18.5; Diabetic neuropathy, type I diabetes mellitus (HCC); Gastroesophageal reflux disease without esophagitis; Gastroparesis due to DM (HCC); Stage 3b chronic kidney disease (HCC); Splenic infarct; Protein-calorie malnutrition, unspecified severity 08/01/2024 11:00 AM CDT Office Visit [facility] at [address] [phone] Lauren Chase DO Type 1 diabetes mellitus with hyperglycemia (HCC) (Primary Dx); Hypothyroidism, unspecified type; Acquired hypothyroidism 08/01/2024 Telephone [facility] Primary Care at [address] [phone] Chitra Almanzar MD 08/01/2024 Orders Only [facility] at [address] [phone] Chitra Almanzar MD 07/26/2024 Results Follow-Up [facility] at [address] [phone] Lauren Chsae DO Thyroid Function [place], T4, free 07/25/2024 8:05 PM CDT - 07/25/2024 11:59 PM CDT Hospital Encounter [address] [address] Hypothyroidism, unspecified type; Type 1 diabetes mellitus with hyperglycemia (HCC) Discharge Disposition: Discharge to home or self care 07/25/2024 8:03 PM CDT - 07/25/2024 11:59 PM CDT Hospital Encounter [address] [phone] Hypertension associated with diabetes (HCC) Discharge Disposition: Discharge to home or self care 07/25/2024 9:00 AM CDT Lab [facility] at [address] [phone] Type 1 diabetes mellitus with hyperglycemia (HCC) (Primary Dx); Renal failure, chronic, stage 3 (moderate) (HCC) 07/24/2024 ACO Clinical Pharmacist [facility] Care Organization [address] [place] [id number] Laisha Dumont, [facility] from Last 3 Months Immunizations Immunization Administration Dates Next Due Influenza, Unspecified 08/01/2024(Deferr ed: Patient Refused),05/01/2024(Deferred: Patient Refused),01/18/2024(Deferred: Patient Refused),02/27/2023(Deferred: Patient Refused),12/31/2022(Deferred: Patient Refused),12/31/2022(Deferred: Patient Refused),10/16/2022(Deferred: Patient Refused),03/08/2022(Deferred: Patient Refused),12/31/2021(Deferred: Patient Refused),12/30/2021(Deferred: Patient Refused),10/06/2021(Deferred: Patient Refused),03/25/2021(Deferred: Patient Refused),12/23/2020(Deferred: Patient Refused),12/06/2020(Deferred: Patient Refused),12/06/2020(Deferred: Patient Refused),12/06/2020(Deferred: Patient Refused),11/06/2020(Deferred: Patient Refused),02/20/2020(Deferred: Patient Refused),12/07/2019(Deferred: Patient Refused),12/07/2019(Deferred: Patient Refused),12/07/2019(Deferred: Patient Refused),12/07/2019(Deferred: Patient Refused),06/06/2019(Deferred: Patient Refused),03/02/2019(Deferred: Patient Refused),12/06/2018(Deferred: Patient Refused),12/06/2018(Deferred: Patient Refused),12/06/2018(Deferred: Patient Refused),12/01/2018(Deferred: Patient Refused),08/05/2018(Deferred: Patient Refused),12/06/2017(Deferred: Patient Refused),12/06/2017(Deferred: Patient Refused) Pneumococcal Conjugate Pcv20 12/31/2022(Deferred : Patient Refused) Surgical History Surgery Date Site/Laterality Comments OTHER SURGICAL HISTORY 03/08/2009 - 03/07/2010 Er Visit-Kidney Infection OTHER SURGICAL HISTORY 03/08/2010 - 03/07/2011 Er Visit-Pnuemonia OTHER SURGICAL HISTORY 03/08/2009 - 03/07/2010 Gastroperiesis CHOLECYSTECTOMY Cholecystectomy OTHER SURGICAL HISTORY adhesions: partial hysterectomy HYSTERECTOMY BREAST BIOPSY left 15 years ago CATARACT EXTRACTION BLADDER SUSPENSION HAND SURGERY Medical History Medical History Date Comments Hx Other Medical 02/17/2012 EGD Hx Other Medical adhesions Hx Other Medical 2013 cateract surg Smoking Dizziness Thyroid disease Diabetes (HCC) Gastroparesis Anemia History of pneumonia 2010 Renal failure, chronic, stage 3 (moderate) (HCC) Kidney stones 08/2019 Family History Medical History Relation Name Comments Diabetes Brother 2 Diabetes mellit us; Bladder Cancer Brother 3 Cancer, bladd er; Bladder Cancer Father Cancer, bladd er; Heart attack Father Myocardial infa rction; Stroke Father Stroke; Diabetes Mother Diabetes mellit us; Heart attack Mother Other Other 2 hodgkin's; Breast cancer Sister 1 Diabetes Sister 2 Diabetes mellit us; Leukemia Sister 3 Leukemia; Relation Name Status Comments Brother 1 Alive Brother 2 Brother 3 Father Alive Mother Other 1 Alive Other 2 Sister 1 Alive Sister 2 Sister 3 Social History Tobacco Use Types [...] on file Legal Sex Female 11:55 PM FAMILY LAW PARALEGAL Gender Identity Not on file Sexual Orientation Not on file Obstetrics History Para Term AB IAB SAB Ectopic Multiple Livin g Live Births 2 1 1 Date Outcome GA Total Labor Labor/2nd/3rd Weight Sex Type Anes PTL Shannon A1 A5 Name Clin Term Last Filed Vital Signs Vital Sign Reading Time Taken Comments Blood Pressure 102/50 08/01/2024 12:31 PM CDT Pulse 70 08/01/2024 12:31 PM CDT Temperature 36.4 C (97.6 F) 08/01/2024 12:31 PM CDT Respiratory Rate 16 08/01/2024 12:31 PM CDT Oxygen Saturation 96% 08/01/2024 12:31 PM CDT Inhaled Oxygen Concentration - - Weight 42.6 kg (94 lb) 08/01/2024 12:31 PM CDT Height 157.5 cm (5' 2) 08/01/2024 12:31 PM CDT Body Mass Index 17.19 08/01/2024 12:31 PM CDT Plan of Treatment Health Maintenance Due Date Last Done Comments DTaP/Tdap/Td Vaccine (1 - Tdap) 1968 Hepatitis B Screening 08/22/1975 Pneumococcal vaccine 65+ (1 of 2 - PCV) 1976 Lung Cancer Screening 08/22/2007 Zoster Vaccine (1 of 2) 08/22/2007 Osteoporosis Screening-Bone Density Scan 03/10/2021 03/10/2019 Breast Cancer Screening-Mammogram 12/25/2021 12/25/2020, 12/09/2019, 01/30/2013 Covid-19 Vaccine (3 - 2023-2 5 season) 2023 10/30/2020, 10/09/2020 Influenza Vaccine (Season Ended) 2024 Colon Cancer Screening-DNA Stool 01/06/2025 01/06/2022, 12/16/2018, 12/15/2018 Well Visit 65+ 01/17/2025 01/18/2024, 12/07, 12/30/2021, Additional history exists Hemoglobin A1C 01/25/2025 07/25/2024, 02/0 09/2024, 01/10/2024, Additional history exists Dilated Eye Exam 04/12/2025 04/12/2024, 01/2024, 12/03/2021, Additional history exists Albumin Creatinine Ratio, Urine 04/14/2025 04/14/2024, 03/30/2023, 12/24/2022, Additional history exists Lipid Panel 07/25/2025 07/25/2024, 02/0 09/2024, 01/10/2024, Additional history exists TSH Level 07/25/2025 07/25/2024, 022 , 04/14/2024, Additional history exists eGFR 07/25/2025 07/25/2024, 02/0 09/2024, 01/10/2024, Additional history exists Depression Screening 08/01/2025 08/01/2024, 05/01/2024, 01/18/2024, Additional history exists Fall Risk Assessment 08/01/2025 08/01/2024, 05/01/2024, 01/18/2024, Additional history exists Foot Exam 08/01/2025 08/01/2024, 04/09, 01/18/2024, Additional history exists Hepatitis C Screening Completed 07/23/2016, 017 Colon Cancer Screening-FIT Discontinued 01/06, 12/16/2018, 12/15/2018 Procedures Procedure Name Priority Date/Time Associated Diagnosis Comments EGFR Routine 07/25/2024 11:00 AM CDT Hypertension associated with diabetes (HCC) T4, FREE Routine 07/25/2024 11:00 AM CDT Hypothyroidism, unspecified type C-PEPTIDE Routine 07/25/2024 11:00 AM CDT Type 1 diabetes mellitus with hyperglycemia (HCC) THYROID FUNCTION CASCADE Routine 07/25/2024 11:00 AM CDT Hypothyroidism, unspecified type LIPID PANEL Routine 07/25/2024 11:00 AM CDT Hypertension associated with diabetes (HCC) HEMOGLOBIN A1C Routine 07/25/2024 11:00 AM CDT Hypertension associated with diabetes (HCC) COMPREHENSIVE METABOLIC PANEL Routine 07/25/2024 11:00 AM CDT Hypertension associated with diabetes (HCC) ALBUMIN CREATININE RATIO, URINE Routine 04/14/2024 8:23 AM FAMILY LAW PARALEGAL Diabetic neuropathy, type I diabetes mellitus (HCC) DIABETIC EYE EXAM Routine 04/12/2024 STOOL DNA COLOGUARD Routine 01/06/2022 7:55 AM CDT Colon cancer screening Screening for rectal cancer SCREENING MAMMOGRAM BILATERAL W ROLY Schedule Routine, Read Routine (OP Routine) 12/25/2020 2:00 PM CDT Screening mammogram, encounter for HM DIABETES FOOT EXAM Routine 06/06/2019 DEXA AXIAL SKELETON BONE DENSITY 1 OR MORE SITES Schedule Routine, Read Routine (OP Routine) 03/10/2019 2:08 PM FAMILY LAW PARALEGAL Disorder of bone, unspecified Osteoarthritis, unspecified osteoarthritis type, unspecified site HEPATITIS C AB REFLEX RNA QUANT PCR Routine 07/23/2016 8:30 AM CDT from Last 3 Months or Most Recently Relevant to Health Maintenance Results * (ABNORMAL) eGFR (07/25/2024 11:00 AM CDT) eGFR 40(L) >=60 mL/min/1. 73 m2 Comment: Interpretive Data Reference Interval Normal >/= 90 mL/min/1.73m2 Mildly decreased* 60 - 89 mL/min/1.73m2 Mildly to moderately decreased 45 - 59 mL/min/1.73m2 Moderately to severely decreased 30 - 44 mL/min/1.73m2 Severely decreased 15 - 29 mL/min/1.73m2 Kidney Failure < 15 mL/min/1.73m2 *Relative to young adult level Estimated glomerular filtration rate is determined by the 2020 CKD-EPI equation recommended by the National Kidney Foundation (A Unifying Approach to GFR Estimation: Recommendations of the NKF-ASK Task Force on Reassessing the Inclusion of Race in Diagnosing Kidney Disease, JASN 202). The CKD-EPI equation should not be used for patients with unstable renal function and has not been validated in children and those over 70. Current interpretive data was last reviewed 2021. Blood 07/25/2024 11:0 0 AM CDT 07/25/2024 8:16 PM CDT Chitra Almanzar MD LAB BLOOD ORDERABLES Fi nal Result Performing Organization Address [facility]/ZIP Co de Phone Number BUD DIMAS [address] [place] [place] [address] * (ABNORMAL) Thyroid Function [place] (07/25/2024 11:00 AM CDT) TSH 6.81(H) 0.30 - 4.20 mcIUnit/mL Blood 07/25/2024 11:0 0 AM CDT 07/25/2024 8:16 PM CDT us Lauren Chase DO LAB BLOOD ORDERABLES Final Result Performing Organization Address [facility] Co de Phone Number BUD DIMAS [address] [place] [place] [address] * (ABNORMAL) C-peptide (07/25/2024 11:00 AM CDT) C-peptide <0.02(L) 1.10 - 4.40 ng/mL Comment:Testing performed by : [facility], [address] [facility], [place]., [address] Blood 07/25/2024 11:0 0 AM CDT 07/26/2024 10:27 AM CDT us Lauren Chase DO LAB BLOOD ORDERABLES Final Result Performing Organization Address [facility] Co de Phone Number ANURAGJAZZY DIMAS [address] [place] [place] [address] * (ABNORMAL) T4, free (07/25/2024 11:00 AM CDT) Free T4 0.85(L) 0.90 - 1.70 ng/dL Blood 07/25/2024 11:0 0 AM CDT 07/25/2024 8:16 PM CDT Lauren Chase DO LAB BLOOD ORDERABLES Final Result Performing Organization Address [facility] de Phone Number BUD DIMAS [address] [place] [address] * (ABNORMAL) Hemoglobin A1c (07/25/2024 11:00 AM CDT) Hgb A1C 7.7(H) 4.0 - 5.6 % Estimated Average Glucose 174 mg/dL BUD DIMAS Comment: The ADA recommends reporting an estimated Average Glucose (eAG) with all Hemoglobin A1c results using the equation derived from a study of 507 normal and diabetic adults. Minority populations were underrepresented and children were not included. (Diabetes Care 31:5029-5814, 2008). The eAG is not equivalent to a fasting glucose. Blood 07/25/2024 11:0 0 AM CDT 07/25/2024 8:16 PM CDT Chitra Almanzar MD LAB BLOOD ORDERABLES Fi nal Result Performing Organization Address [facility] de Phone Number BUD DIMAS [address] [place] [address] * Lipid panel (07/25/2024 11:00 AM CDT) Cholesterol 177 30 - 199 mg/dL Comment: Interpretive Data Ages < or = 19 years Acceptable: <170 mg/dL Borderline high: 170-199 mg/dL High: >or= 200 mg/dL Ages > or = 20 years Desirable: <200 mg/dL Borderline high: 200-239 mg/dL High: >or= 240 mg/dL Literature References: 1. Expert Panel on Integrated Guidelines for Cardiovascular Health and Risk Reduction in Children and Adolescents. Pediatrics 2011;128:S213 2. NCEP Expert Panel. Circulation 2004;110:227 Current Interpretive Data was last revised on 2017. Triglycerides 93 <=149 mg/dL BUD DIMAS Comment: Interpretive Data Ages < or = 9 years Acceptable: <75 mg/dL Borderline high: 75-99 mg/dL High: >or= 100 mg/dL Ages 10 to 20 years Acceptable: <90 mg/dL Borderline high: 90-129 mg/dL High: >or= 130 mg/dL Ages > or = 20 years Desirable: <150 mg/dL Borderline high: 150-199 mg/dL High: 200-499 mg/dL Very high: >or= 499 mg/dL Literature References: 1. Expert Panel on Integrated Guidelines for Cardiovascular Health and Risk Reduction in Children and Adolescents. Pediatrics 2011;128:S213 2. NCEP Expert Panel. Circulation 2004;110:227 Current Interpretive Data was last revised on 2017. HDL 81 >=40 mg/dL BUD DIMAS Comment: Interpretive Data Ages < or = 19 years Acceptable: >45 mg/dL Borderline low: 40-45 mg/dL Low: <40 mg/dL Ages > or = 20 years Desirable: >or= 60 mg/dL Low: <40 mg/dL Literature References: 1. Expert Panel on Integrated Guidelines for Cardiovascular Health and Risk Reduction in Children and Adolescents. Pediatrics 2011;128:S213 2. NCEP Expert Panel. Circulation 2004;110:227 Current Interpretive Data was last revised on 2017. LDL, calculated 79 <=129 mg/dL BUD DIMAS Comment: Interpretive Data Ages < or = 19 years Acceptable: <110 mg/dL Borderline high: 110-129 mg/dL High: >or= 130 mg/dL Ages > or = 20 years Optimal: <100 mg/dL Near optimal: 100-129 mg/dL Borderline high: 130-159 mg/dL High: >160 mg/dL Calculated using the Troy LDL-C estimating equation. This equation was implemented on 2023. Prior to this date LDL-C was estimated using the Friedewald equation. Literature References: 1. Expert Panel on Integrated Guidelines for Cardiovascular Health and Risk Reduction in Children and Adolescents. Pediatrics 2011;128:S213 2. NCEP Expert Panel. Circulation 2004;110:227 3. Troy Kruger al. LAURIE Cardiol. 2020 July 06;5(5):540-548. doi: 10.1001/jamacardio.2020.0013 Current Interpretive Data was last revised on 2023. Non-HDL Cholesterol 96 mg/dL BUD DIMAS Comment: Interpretive Data Ages < or = 19 years Acceptable: <120 mg/dL Borderline high: 120-144 mg/dL High: >145 mg/dL Ages > or = 20 years When triglycerides are >200 mg/dL, Non-HDL cholesterol is a secondary target of therapy with treatment goals that are 30 mg/dL greater than the LDL cholesterol target. Literature References: 1. Expert Panel on Integrated Guidelines for Cardiovascular Health and Risk Reduction in Children and Adolescents. Pediatrics 2011;128:S213 2. NCEP Expert Panel. Circulation 2004;110:227 Current Interpretive Data was last revised on 2017. Chol/HDL ratio 2 CERNER CH Blood 07/25/2024 11:0 0 AM CDT 07/25/2024 8:16 PM CDT Narrative CERNER CH - 07/25/2024 9:54 PM CDT Has the patient been fasting for 8 hours or more?->Yes us Chitra Almanzar MD LAB BLOOD ORDERABLES Fi nal Result CERNER [id number] [place] [address] * (ABNORMAL) Comprehensive metabolic panel (07/25/2024 11:00 AM CDT) Sodium 142 135 - 145 mmol/L Potassium, pl 4.4 3.3 - 4.9 mmol/L CERNER CH Chloride 104 97 - 110 mmol/L CERNER CH CO2 28 22 - 32 mmol/L CERNER CH Anion gap 10 2 - 15 mmol/L CERNER CH BUN 27(H) 6 - 25 mg/dL CERNER CH Creatinine 1.43(H) 0.60 - 1.10 mg/dL CERNER CH Glucose 116 70 - 199 mg/dL CERNER CH Comment: Interpretive Data Fasting glucose >/= 126 mg/dl is diagnostic for diabetes. Fasting is defined as no caloric intake for at least 8 hours. Fasting glucose between 100 mg/dl to 125 mg/dl is diagnostic of prediabetes. In a patient with classic symptoms of hyperglycemia or hyperglycemic crisis, a random glucose >/= 200 mg/dl is diagnostic for diabetes. In the absence of unequivocal hyperglycemia, results should be confirmed by repeat testing. The classification and Diagnosis of Diabetes Diabetes Care 2021; 46: S19-S40. Current interpretive data was last revised 2022. Calcium 10.0 8.5 - 10.3 mg/dL CERNER CH Bilirubin, total 0.2 0.1 - 1.2 mg/dL CERNER CH Protein, pl 7.1 6.5 - 8.5 g/dL CERNER CH Albumin 4.2 3.5 - 5.0 g/dL CERNER CH Alk phos 76 40 - 130 Units/L CERNER CH ALT 13 7 - 45 Units/L CERNER CH AST 29 10 - 45 Units/L CERNER CH Blood 07/25/2024 11:0 0 AM CDT 07/25/2024 8:16 PM CDT Narrative CERNER CH - 07/25/2024 9:54 PM CDT Has the patient fasted?->Yes Chitra Almanzar MD LAB BLOOD ORDERABLES Fi nal Result Performing Organization Address [facility] Co de Phone Number BUD DIMAS [address] [place] [address] * (ABNORMAL) Albumin Creatinine Ratio, Urine (04/14/2024 8:23 AM FAMILY LAW PARALEGAL) Albumin Ur 954.1 mg/L Comment: Interpretive Data No reference range established. Current interpretive data was last revised 2018. Creatinine Ur 131.7 mg/dL CERNER Comment: Interpretive Data No reference range established. Current interpretive data was last revised 2018. Albumin Creatinine Ratio, Ur 724(H) 1 - 29 mg[facility] Urine 04/14/2024 8:23 AM FAMILY LAW PARALEGAL 04/14/2024 8:23 PM FAMILY LAW PARALEGAL Chitra Almanzar MD LAB URINE ORDERABLES Fi nal Result Performing Organization Address City/[facility]/ZIP Co de Phone Number BUD DIMAS [address] [place] [address] * (ABNORMAL) Diabetic Eye Exam (04/12/2024) Generic External Data Provider HEALTH MAINTENANC E Final Result * Stool DNA - Cologuard (01/06/2022 7:55 AM CDT) Stool DNA - Cologuard Negative Negative [facility] (CLIA #:[id number]) Comment: NEGATIVE TEST RESULT. A negative Cologuard result indicates a low likelihood that a colorectal cancer (CRC) or advanced adenoma (adenomatous polyps with more advanced pre-malignant features) is present. The chance that a person with a negative Cologuard test has a colorectal cancer is less than 1 in 1500 (negative predictive value >99.9%) or has an advanced adenoma is less than 5.3% (negative predictive value 94.7%). These data are based on a prospective cross-sectional study of 10,000 individuals at average risk for colorectal cancer who were screened with both Cologuard and colonoscopy. (Paola Santos al, N Engl J Med 2014;370(14):9143-7720) The normal value (reference range) for this assay is negative. COLOGUARD RE-SCREENING RECOMMENDATION: Periodic colorectal cancer screening is an important part of preventive healthcare for asymptomatic individuals at average risk for colorectal cancer. Following a negative Cologuard result, the British Cancer Society and U.S. Multi-Society Task Force screening guidelines recommend a Cologuard re-screening interval of 3 years. References: British Cancer Society Guideline for Colorectal Cancer Screening: https://www.cancer.org/cancer/cikfa-soeuzq-gjbiav/oibxolgri-yzbusnfru-acjwllw/ac s-rec ommendations.html.; Danny DK, Seymour CR, Tenisha RebolledoK, Colorectal Cancer Screening: Recommendations for Physicians and Patients from the U.S. Multi-Society Task Force on Colorectal Cancer Screening , Am J Gastroenterology 2017; 112:0143-4057. TEST DESCRIPTION: Composite algorithmic analysis of stool DNA-biomarkers with hemoglobin immunoassay. Quantitative values of individual biomarkers are not reportable and are not associated with individual biomarker result reference ranges. Cologuard is intended for colorectal cancer screening of adults of either sex, 45 years or older, who are at average-risk for colorectal cancer (CRC). Cologuard has been approved for use by the U.S. FDA. The performance of Cologuard was established in a cross sectional study of average-risk adults aged 50-84. Cologuard performance in patients ages 45 to 49 years was estimated by sub-group analysis of near-age groups. Colonoscopies performed for a positive result may find as the most clinically significant lesion: colorectal cancer [4.0%], advanced adenoma (including sessile serrated polyps greater than or equal to 1cm diameter) [20%] or non- advanced adenoma [31%]; or no colorectal neoplasia [45%]. These estimates are derived from a prospective cross-sectional screening study of 10,000 individuals at average risk for colorectal cancer who were screened with both Cologuard and colonoscopy. (Paola Santos al, N Engl J Med 2014;370(14):8859-7592.) Cologuard may produce a false negative or false positive result (no colorectal cancer or precancerous polyp present at colonoscopy follow up). A negative Cologuard test result does not guarantee the absence of CRC or advanced adenoma (pre-cancer). The current Cologuard screening interval is every 3 years. (British Cancer Society and U.S. Multi-Society Task Force). Cologuard performance data in a 10,000 patient pivotal study using colonoscopy as the reference method can be accessed at the following location: www.Smartesting.BaseKit/results. Additional description of the Cologuard test process, warnings and precautions can be found at www.Startup Networkrd.BaseKit. Stool 01/06/2022 7:55 AM CDT 01/07/2022 12:14 PM CDT Chitra Almanzar MD LAB BODY FLUIDS AND STO OLS ORDERABLES Final Result [employer] (CLIA #:[id number]) Perla [place] [address] * Screening Mammogram Bilateral W Roly (12/25/2020 2:00 PM CDT) Anatomical Region Laterality Modality Breast Bilateral Mammography 12/25/2020 2:36 PM CDT Impressions 12/25/2020 2:36 PM CDT There is no mammographic evidence of malignancy. A 1 year screening mammogram is recommended. BI-RADS: 2 - Benign. The patient has been or will be contacted. The patient will be entered into a reminder system with a target due date of 1 year for her next mammogram. Electronically signed by: Min Wan M.D. Narrative 12/25/2020 2:36 PM CDT EXAMINATION: SCREENING MAMMOGRAM BILATERAL W ROLY ORDERING HEALTHCARE PROVIDER: CHITRA ALMANZAR HISTORY: Routine screening mammography. COMPARISON: 12/09/2019 TECHNIQUE: CC and MLO views of the bilateral breasts were obtained with digital technique using breast tomosynthesis with C view. Computer aided detection was utilized. FINDINGS: DENSITY: The tissue of the breasts is extremely dense, which lowers the sensitivity of mammography. BREASTS: There are benign-appearing calcifications in both breasts. There are no suspicious masses, suspicious calcifications, or other suspicious findings in either breast. There has been no suspicious interval change. Chitra Almanzar MD IMG MAMMO PROCEDURES Fi nal Result * DIABETES FOOT EXAM (06/06/2019) Diabetic Foot Exam Abnormal Historical Provider HEALTH MAINTENANCE Final Result * Dexa Axial Skeleton Bone Density 1 or 2 Site (03/10/2019 2:08 PM FAMILY LAW PARALEGAL) Anatomical Region Laterality Modality Body N/A Other 03/10/2019 4:05 PM FAMILY LAW [employer]GAL Impressions 03/10/2019 4:06 PM FAMILY LAW PARALEGAL Osteoporosis by WHO criteria. GENERAL GUIDELINES: According to WHO guidelines, a T score of -1.0 or greater is normal, between -1.0 to -2.5 is osteopenia, and -2.5 or less is osteoporosis. Z score (instead of T score) is preferred for pediatric, young adults, premenopausal women and men under age of 50 years. In these patients, a Z score greater than or equal to -2.0 is considered to be in the expected range. For our facility, change in BMD of greater than 5% is considered statistically significant. General Recommendations: 1. Consider an evaluation for secondary causes of osteoporosis in patients with low bone density. 2. All patients should be counseled on adequate intake of calcium (1200 mg/day), vitamin D (600-800 IU daily) and exercise. 3. The National Osteoporosis Foundation (NOF) guidelines recommend initiating pharmacological therapy, in addition to calcium, vitamin D and exercise, to reduce fracture risk when: a. T-score less than or equal to -2.5 after secondary causes excluded. b. T-score between -1.0 and -2.5 with secondary causes associated with high risk of fracture. c. 10-year probability of hip fracture more than or equal to 3% (based on FRAX score). d. 10-year probability of major osteoporosis related fracture more than or equal to 20% (based on FRAX score). Followup: People with diagnosed cases of osteoporosis or at high risk for fracture should have regular bone mineral density tests. For patients eligible for Medicare, routine testing is allowed once every 2 years. The testing frequency can be increased to one year for patients who have rapidly progressive disease or those who are receiving long-term steroid therapy. Electronically signed by: Vince Garcia M.D. Narrative 03/10/2019 4:06 PM FAMILY LAW PARALEGAL COMPLETION DATE: 03/10/2019 2:00 PM ORDERING HEALTHCARE PROVIDER: CHITRA ALMANZAR STUDY DESCRIPTION: DEXA AXIAL SKELETON BONE DENSITY 1 OR MORE SITES CLINICAL INDICATIONS: 63-year-old postmenopausal female, screening for osteoporosis. COMPARISON: None TECHNIQUE: Dual x-ray absorptiometry (DEXA) was performed using marinanow system. Bone mineralization and T score are reported. FINDINGS: Lumbar spine Bone mineral density: 0.882 g/cm2 T-score: -1.5 Left hip Total bone mineral density: 0.526 g/cm2 Total hip T-score: -3.4 Femoral neck bone mineral density: 0.494 g/cm2 Femoral neck T-score: -3.2 Procedure Note Vince Garcia MD - 03/10/2019 COMPLETION DATE: 03/10/2019 2:00 PM ORDERING HEALTHCARE PROVIDER: CHITRA ALMANZAR STUDY DESCRIPTION: DEXA AXIAL SKELETON BONE DENSITY 1 OR MORE SITES CLINICAL INDICATIONS: 63-year-old postmenopausal female, screening for osteoporosis. COMPARISON: None TECHNIQUE: Dual x-ray absorptiometry (DEXA) was performed using HoloZibby system. Bone mineralization and T score are reported. FINDINGS: Lumbar spine Bone mineral density: 0.882 g/cm2 T-score: -1.5 Left hip Total bone mineral density: 0.526 g/cm2 Total hip T-score: -3.4 Femoral neck bone mineral density: 0.494 g/cm2 Femoral neck T-score: -3.2 IMPRESSION: Osteoporosis by WHO criteria. GENERAL GUIDELINES: According to WHO guidelines, a T score of -1.0 or greater is normal, between -1.0 to -2.5 is osteopenia, and -2.5 or less is osteoporosis. Z score (instead of T score) is preferred for pediatric, young adults, premenopausal women and men under age of 50 years. In these patients, a Z score greater than or equal to -2.0 is considered to be in the expected range. For our facility, change in BMD of greater than 5% is considered statistically significant. General Recommendations: 1. Consider an evaluation for secondary causes of osteoporosis in patients with low bone density. 2. All patients should be counseled on adequate intake of calcium (1200 mg/day), vitamin D (600-800 IU daily) and exercise. 3. The National Osteoporosis Foundation (NOF) guidelines recommend initiating pharmacological therapy, in addition to calcium, vitamin D and exercise, to reduce fracture risk when: a. T-score less than or equal to -2.5 after secondary causes excluded. b. T-score between -1.0 and -2.5 with secondary causes associated with high risk of fracture. c. 10-year probability of hip fracture more than or equal to 3% (based on FRAX score). d. 10-year probability of major osteoporosis related fracture more than or equal to 20% (based on FRAX score). Followup: People with diagnosed cases of osteoporosis or at high risk for fracture should have regular bone mineral density tests. For patients eligible for Medicare, routine testing is allowed once every 2 years. The testing frequency can be increased to one year for patients who have rapidly progressive disease or those who are receiving long-term steroid therapy. Electronically signed by: Vince Garcia M.D. 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
--- OUTSIDE RECORDS SUMMARY | 2024-09-09 18:05 | XMS_ITS | Encounter Summary ---
Author Organization [facility] [employer] [facility] Address [address] [place] [address] Phone Care Team Providers Care Night Baker Name Role Phone Bin Almanzar MD Primary Care Provider Cristal Funes RN Unavailable [phone] Encounter Details Date Type Department Care Team (Late st Contact Info) Description 04/26/2017 Orders Only [facility] ProviderHaven MD [address] [place] [id number] Social History Tobacco Use Types Packs/Day Years Used Date Smoking Tobacco: Every Day Smokeless Tobacco: Never Alcohol Use Standard Drinks/Week Comments No 0 (1 standard drink = 0.6 oz pur e alcohol) Comments Unknown Sex and Gender Information Value Date Recorded Sex Assigned at Not on file 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
--- OUTSIDE RECORDS SUMMARY | 2024-09-09 18:05 | XMS_ITS ---
Author Organization [facility] Address [address] [place] [phone] Care Team Providers Care Calf Skinner Name Role Phone Myranda Hill Unavailable Unavail able ASHLEY MARTINEZ Unavailable [phone] Encounters Encounter Location Date Provider Diagnosis [facility] [address], [place] [phone] 06/22/2023 ASHLEY MARTINEZ Plan Of Treatment No Information Progress Notes * CHIQUITAJANETJosh:08/06 (69 yo F)Acc No.[id number]:06/22/2023 Progress Notes Patient: Josh FREEMAN Provider: Artis Martinez MD :1955 A ge:67 Y S ex:Female Date:06/22/2023 Address:[address] [place], [place] [id number] Subjective: * Chief Complaints: * * Medical History: Objective: * Vitals: Assessment: Plan: * Treatment: * Billing Information: * Visit Code: * Procedure Codes: * Electronic signature of ANETTE MARTINEZ MD on 09/09/2024 at 06:04 PM CDT Sign off status: Pending * Provider: Artis Martinez MD Date: 06/22/2023 Generated for Arron banda/Estee/eTransmitting on: 09/09/2024 06:04 PM CDT
--- OUTSIDE RECORDS SUMMARY | 2024-09-09 18:05 | XMS_ITS | Clinical Summary ---
Author Organization [facility] [employer] Address [address] [place] [address] Care Team Providers Care Ultrasound Spec Name Role Phone Unavailable Primary Care Provider Unavailabl e Source Comments [facility],non-owned Affiliates and Associated Physician Practices is amultiple site organization consisting of ambulatory clinics and hospital sitesin [place], [place], [place] and [place]. This disclosure is being madepursuant to the Care Everywhere program and may not contain all information available regarding this patient. Last updated 17.[facility] Allergies No known active allergies Medications * Be aware that medications may not be up to date on this document. Alwaysverify current medications with the patient. Cyanocobalamin 1000 MCG/ML Active LEVOTHYROXINE SODIUM PO Active HYDROcodone-acet aminophen (NORCO) 5-325 mg 5-325 mg half tablet Take by mouth every 4 hours as needed Active gabapentin (NEURONTIN) 300 MG capsule Take 300 mg by mouth 3 times daily Active FLUDROCORTISONE ACETATE PO Active insulin lispro (HUMALOG) 100 UNIT/ML vial Active Social History Tobacco Use Types Packs/Day Years Used Date Smoking Tobacco: Never Smokeless Tobacco: Never Comments No Sex and Gender Information Value Date Recorded Sex Assigned at Not on file Legal Sex Female 12:07 PM CDT Gender Identity Not on file Sexual Orientation Not on file Last Filed Vital Signs Vital Sign Reading Time Taken Comments Blood Pressure 130/80 08/05/2019 4:07 PM CDT Pulse 87 08/05/2019 4:07 PM CDT Temperature 36.5 C (97.7 F) 08/05/2019 4:07 PM CDT Respiratory Rate 16 08/05/2019 4:07 PM CDT Oxygen Saturation 98% 08/05/2019 4:07 PM CDT Inhaled Oxygen Concentration - - Weight 58.1 kg (128 lb) 08/05/2019 4:07 PM CDT Height 162.6 cm (5' 4) 08/05/2019 4:07 PM CDT Body Mass Index 21.97 08/05/2019 4:07 PM CDT Plan of Treatment Health Maintenance Due Date Last Done Comments BONE DENSITY TESTING 1955 COLOGUARD (AGES 45-75) - COL ON CA SCREENING 1955 COLON MONITORING 1955 COLONOSCOPY - COLON CA SCREENING 1955 CT COLONOGRAPHY - COLON CA SCREENING 1955 Colorectal Cancer Screening 1955 FIT - COLON CA SCREENING 1955 FLEX SIG - COLON CA SCREENING 1955 LIPID TESTING 1955 MAMMOGRAM 1955 HEPATITIS C SCREENING 08/17/1975 DTAP/TDAP/TD VACCINES (1 - Tdap) 1976 PNEUMOCOCCAL VACCINE 50+ (1 of 1 - PCV) 08/22/2007 ZOSTER VACCINE (1 of 2) 08/22/2007 COVID-19 VACCINE (1 - 2023-2 5 season) 2023 DEPRESSION SCREENING 03/08/2024 INFLUENZA VACCINE (#1) 2024 Respiratory Syncytial Virus (RSV) Vaccine Pt: or over 60 yrs (1 - 1-dose 75+ series) 2032 HEPATITIS B VACCINE Aged Out No longe r eligible based on patient's age to complete this topic HIB VACCINE Aged Out No longer eligi ble based on patient's age to complete this topic HPV VACCINE Aged Out No longer eligi ble based on patient's age to complete this topic MENINGOCOCCAL (Group B) VACC INE SHARED DECISION-MAKING Aged Out No longer eligibl e based on patient's age to complete this topic MENINGOCOCCAL GROUPS A/C/Y/W VACCINE Aged Out No longer eligible b ased on patient's age to complete this topic Insurance MEDICARE
--- OUTSIDE RECORDS SUMMARY | 2024-09-09 18:05 | XMS_ITS | Encounter Summary ---
Author Organization [facility] [employer] [facility] Address [address] [place] [address] Phone Care Team Providers Care Collaborative Physician Name Role Phone Bin Almanzar MD Primary Care Provider Cristal Funes RN Unavailable [phone] Encounter Details Date Type Department Care Team (Late st Contact Info) Description 07/29/2017 Orders Only [facility] ProviderHaven MD [address] [place] [address] Social History Tobacco Use Types Packs/Day Years Used Date Smoking Tobacco: Every Day Smokeless Tobacco: Never Alcohol Use Standard Drinks/Week Comments No 0 (1 standard drink = 0.6 oz pur e alcohol) Comments Unknown Sex and Gender Information Value Date Recorded Sex Assigned at Not on file Legal Sex Female 11:55 PM 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
--- OUTSIDE RECORDS SUMMARY | 2024-09-09 18:05 | XMS_ITS ---
Author Organization [facility] Address [address] [place] [phone] Care Team Providers Care Python Engineer Name Role Phone Myranda Hill Unavailable Unavail able ASHLEY MARTINEZ Unavailable [phone] Encounters Encounter Location Date Provider Diagnosis [facility] [address] [place] [phone] 10/07/2023 ASHLEY MARTINEZ Plan Of Treatment No Information Progress Notes * CHIQUITAJANETJosh:08/06 (69 yo F)Acc No.[id number]:10/07/2023 Progress Notes Patient: Josh FREEMAN Provider: Artis Martinez MD :1955 A ge:68 Y S ex:Female Date:10/07/2023 Address:[address] [place], [place] [phone] Subjective: * Chief Complaints: * * Medical History: Objective: * Vitals: Assessment: Plan: * Treatment: * Billing Information: * Visit Code: * Procedure Codes: * Electronic signature of ANETTE MARTINEZ MD on 09/09/2024 at 06:04 PM CDT Sign off status: Pending * Provider: Artis Martinez MD Date: 10/07/2023 Generated for Arron banda/Estee/eTransmitting on: 09/09/2024 06:04 PM CDT
--- OUTSIDE RECORDS SUMMARY | 2024-09-09 18:05 | XMS_ITS | Encounter Summary ---
Author Organization [facility] Healthcare Address [address] [place] [address] Care Team Providers Care Inlayer Name Role Phone Bin Almanzar MD Primary Care Provider Encounter Details Date Type Department Care Team (Late st Contact Info) Description 09/14/2023 Telephone [facility] Medical Group Primary Care at [address] [place] [address] Bin Almanzar MD [address] [place] [address] [address] [place] [address] Social History Tobacco Use Types Packs/Day Years [...] points, staff should administer the PHQ-9) 0 07/05/2023 Comments No Sex and Gender Information Value Date Recorded Sex Assigned at Not on file 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
--- OUTSIDE RECORDS SUMMARY | 2024-09-09 18:05 | XMS_ITS | Referral Summary ---
Author Organization [facility] Address [address] [place] [address] Care Team Providers Care Medical Diagnostic Radiographer Name Role Phone Chitra Almanzar MD Primary Care Provider Encounters Date Type Department Care Team Description 08/09/2024 Telephone [facility] Medical Group Primary Care at [address] [phone] Chitra Almanzar MD Medical Question/Miscellaneou s 08/04/2024 Orders Only [address] [address] Rachel Ballard RN 08/04/2024 Orders Only [address] [address] Sima Glynn, RN 08/04/2024 Orders Only [facility] Primary Care at [address] [phone] Chitra Almanzar MD Acute renal failure, unspecified acute renal failure type (Primary Dx) 08/03/2024 Orders Only [address] [address] Rachel Ballard, WILLARD 08/03/2024 Orders Only [facility] Medical Group Primary Care at [address] [address] Chitra Almanzar MD Acute renal failure, unspecified acute renal failure type (Primary Dx) 08/02/2024 Orders Only [facility] Medical Group Primary Care at [address] [phone] Chitra Almanzar MD Dehydration (Primary Dx) 08/01/2024 Telephone [facility] Group Primary Care at [address] [phone] Chitra Almanzar MD 08/01/2024 Orders Only [facility] Primary Care at [address] [phone] Chitra Almanzar MD 08/01/2024 1:15 PM CDT Office Visit [facility] Primary Care at [address] [phone] Chitra Almanzar MD 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) (Primary Dx); Body mass index (BMI) less than 18.5; Diabetic neuropathy, type I diabetes mellitus (HCC); Gastroesophageal reflux disease without esophagitis; Gastroparesis due to DM (HCC); Stage 3b chronic kidney disease (HCC); Splenic infarct; Protein-calorie malnutrition, unspecified severity 08/01/2024 11:00 AM CDT Office Visit [facility] at [address] [phone] Lauren Chase DO Type 1 diabetes mellitus with hyperglycemia (HCC) (Primary Dx); Hypothyroidism, unspecified type; Acquired hypothyroidism 07/26/2024 Results Follow-Up [facility] at [address] [phone] Lauren Chase DO Thyroid Function [place], T4, free 07/25/2024 8:05 PM CDT - 07/25/2024 11:59 PM CDT Hospital Encounter [address] [address] Hypothyroidism, unspecified type; Type 1 diabetes mellitus with hyperglycemia (HCC) Discharge Disposition: Discharge to home or self care 07/25/2024 8:03 PM CDT - 07/25/2024 11:59 PM CDT Hospital Encounter [facility] [address] [place] [address] Hypertension associated with diabetes (HCC) Discharge Disposition: Discharge to home or self care 07/25/2024 9:00 AM CDT Lab [facility] Medical Group Outpatient Lab at [address] [phone] Type 1 diabetes mellitus with hyperglycemia (HCC) (Primary Dx); Renal failure, chronic, stage 3 (moderate) (HCC) 07/24/2024 ACO Clinical Pharmacist [facility] Care Organization [address] [place] [address] Laisha Dumont RPh from Last 3 Months Allergies Active Allergy Reactions Criticality Noted Date Comments Acyclovir Other (See comments) Reaction: abdominal distress, Codeine Medications blood glucose diagnostic (WinestyrTOUCH ULTRA TEST) strip test by fingerstick route [...] 24 Active insulin pump syringe (MiniMed Syringe Reubens) 3 mL misc 1 Device every 3 (three) days 30 each 3 10/08/19 24 Active cyanocobalamin (Vitamin B-12) 1,000 mcg/mL injection ADMINISTER 1 ML(1000 MCG) IN THE MUSCLE EVERY 30 DAYS DIRECTED 3 mL 10/22/19 Active insulin aspart (NovoLOG) 100 unit/mL vial for injectionIndicatio ns:Type 1 diabetes mellitus with hyperglycemia (HCC) INJECT 50 UNITS VIA INSULIN PUMP EVERY DAY 50 mL 3 01/06/20 24 Active blood-glucose meter,continuous (Dexcom G7 Forensic Engineer) misc 1 Device continuously To continuously monitor [...] total) by mouth daily 30 tablet 11 07/27/19 25 026 Active HYDROcodone-acetam inophen (NORCO) [...] basis. Assessment & Plan (04/07/2022 2:23 PM DELTA SYSTEM FREIGHT CAR CLEANER): Diagnosed at the age of 32. Complicated [...] basis. Assessment & Plan (03/25/2021 12:12 PM DELTA SYSTEM FREIGHT CAR CLEANER): Diagnosed at the age of 32. Complicated [...] basis. Assessment & Plan (03/13/2020 11:42 AM DELTA SYSTEM FREIGHT CAR CLEANER): Diagnosed at the age of 32. Complicated [...] Levothyroxine. Assessment & Plan (04/07/2022 2:05 PM DELTA SYSTEM FREIGHT CAR CLEANER): Patient is on levothyroxine 75 mcg - [...] visit. Assessment & Plan (03/25/2021 12:13 PM DELTA SYSTEM FREIGHT CAR CLEANER): Patient is on levothyroxine 50 mcg /day [...] visit. Assessment & Plan (03/13/2020 11:44 AM DELTA SYSTEM FREIGHT CAR CLEANER): Patient has been on levothyroxine 100 mcg [...] Diabetic gastroparesis 07/13/201102/09 Overview (06/11/2016): Gastroparesis diabeticorum Immunizations Immunization Administration Dates Next Due Influenza, [...] Pneumococcal Conjugate Pcv20 12/31/2022(Deferred : Patient Refused) Social History Tobacco Use Types Packs/Day Years [...] on file Legal Sex Female 11:55 PM DELTA SYSTEM FREIGHT CAR CLEANER Gender Identity Not on file Sexual Orientation [...] 08/01/2024 12:31 PM CDT Plan of Treatment Not on file Procedures Procedure Name Priority Date/Time Associated Diagnosis [...] CREATININE RATIO, URINE Routine 04/14/2024 8:23 AM DELTA SYSTEM FREIGHT CAR CLEANER Diabetic neuropathy, type I diabetes mellitus (HCC) [...] Read Routine (OP Routine) 03/10/2019 2:08 PM DELTA SYSTEM FREIGHT CAR CLEANER Disorder of bone, unspecified Osteoarthritis, unspecified osteoarthritis [...] of Race in Diagnosing Kidney Disease, JASN 2020). The CKD-EPI equation should not be used for patients with unstable renal function and has not been validated in children and those over 70. Current interpretive data was last reviewed 2021. Blood 07/25/2024 11:0 0 AM CDT 07/25/2024 8:16 PM CDT Chitra Almanzar MD LAB BLOOD ORDERABLES Fi nal Result BUD JUDIE [address] [place] [place] [address] * (ABNORMAL) Thyroid Function [place] (07/25/2024 11:00 AM CDT) TSH 6.81(H) 0.30 - 4.20 mcIUnit/mL Blood 07/25/2024 11:0 0 AM CDT 07/25/2024 8:16 PM CDT Lauren Chase DO LAB BLOOD ORDERABLES Final Result Performing Organization Address [facility] Co de Phone Number BUD JUDIE [address] Department of [place], [place] [phone] * (ABNORMAL) C-peptide (07/25/2024 11:00 AM CDT) C-peptide <0.02(L) 1.10 - 4.40 ng/mL Comment:Testing performed by : [facility], [address] [place], [place]., [address] Blood 07/25/2024 11:0 0 AM CDT 07/26/2024 10:27 AM CDT Lauren Chase DO LAB BLOOD ORDERABLES Final Result [facility] [address] [address] [place] [address] * (ABNORMAL) T4, free (07/25/2024 11:00 AM CDT) Free T4 0.85(L) 0.90 - 1.70 ng/dL Blood 07/25/2024 11:0 0 AM CDT 07/25/2024 8:16 PM CDT Lauren Chase DO LAB BLOOD ORDERABLES Final Result Performing Organization Address [facility] de Phone Number [phone] [phone] [address] [facility] [place] [address] * (ABNORMAL) Hemoglobin A1c (07/25/2024 11:00 AM CDT) Hgb A1C 7.7(H) 4.0 - 5.6 % Estimated Average Glucose 174 mg/dL BUD DIMAS Comment: The ADA recommends reporting an estimated Average Glucose (eAG) with all Hemoglobin A1c results using the equation derived from a study of 507 normal and diabetic adults. Minority populations were underrepresented and children were not included. (Diabetes Care 31:6084-6131, 2008). The eAG is not equivalent to a fasting glucose. Blood 07/25/2024 11:0 0 AM CDT 07/25/2024 8:16 PM CDT Chitra Almanzar MD LAB BLOOD ORDERABLES Fi nal Result Performing Organization Address [facility] de Phone Number [phone] [phone] [address] [facility] [place] [address] * Lipid panel (07/25/2024 11:00 AM CDT) [...] on 2017. Triglycerides 93 <=149 mg/dL BUD Comment: Interpretive Data Ages < or = [...] on 2017. HDL 81 >=40 mg/dL BUD Comment: Interpretive Data Ages < or = [...] 2017. LDL, calculated 79 <=129 mg/dL BUD Comment: Interpretive Data Ages < or = 19 years Acceptable: <110 mg/dL Borderline high: 110-129 mg/dL High: >or= 130 mg/dL Ages > or = 20 years Optimal: <100 mg/dL Near optimal: 100-129 mg/dL Borderline high: 130-159 mg/dL High: >160 mg/dL Calculated using the Simmons LDL-C estimating equation. This equation was implemented on 2023. Prior to this date LDL-C was estimated using the Friedewald equation. Literature References: 1. Expert Panel on Integrated Guidelines for Cardiovascular Health and Risk Reduction in Children and Adolescents. Pediatrics 2011;128:S213 2. NCEP Expert Panel. Circulation 2004;110:227 3. Troy M et al. LAURIE Cardiol. 2020 July 06;5(5):540-548. doi: 10.1001/jamacardio.2020.0013 Current Interpretive Data was last revised on 2023. Non-HDL Cholesterol 96 mg/dL CERNER CH Comment: Interpretive Data Ages < or = [...] been fasting for 8 hours or more?->Yes Chitra Almanzar MD LAB BLOOD ORDERABLES Fi nal Result [facility] [address] Department of Laboratories [place], [place] [phone] * (ABNORMAL) Comprehensive metabolic panel (07/25/2024 11:00 [...] MD LAB BLOOD ORDERABLES Fi nal Result [facility] [address] [address] [place] [address] * (ABNORMAL) Albumin Creatinine Ratio, Urine (04/14/2024 8:23 AM DELTA SYSTEM FREIGHT CAR CLEANER) Albumin Ur 954.1 mg/L Comment: Interpretive Data No reference range established. Current interpretive data was last revised 2018. Creatinine Ur 131.7 mg/dL CERNER Comment: Interpretive Data No reference range established. Current interpretive data was last revised 2018. Albumin Creatinine Ratio, Ur 724(H) 1 - 29 mg/g CERNER CH Urine 04/14/2024 8:23 AM DELTA SYSTEM FREIGHT CAR CLEANER 04/14/2024 8:23 PM DELTA SYSTEM FREIGHT CAR CLEANER us Chitra Almanzar MD LAB URINE ORDERABLES Fi nal Result [facility] [address] [address] [place] [address] * (ABNORMAL) Diabetic Eye Exam (04/12/2024) Generic External Data Provider [facility] E Final Result * Stool DNA - Cologuard (01/06/2022 7:55 AM CDT) Stool DNA - Cologuard Negative Negative [facility] (CLIA #:[id number]) Comment: NEGATIVE TEST RESULT. A negative Cologuard [...] screened with both Cologuard and colonoscopy. (Paola Barajas et al, N Engl J Med 2014;370(14):1099-3529) The normal value (reference range) for this assay is negative. COLOGUARD RE-SCREENING RECOMMENDATION: Periodic colorectal cancer screening is an important part of preventive healthcare for asymptomatic individuals at average risk for colorectal cancer. Following a negative Cologuard result, the [place] Cancer Society and U.S. Multi-Society Task Force screening guidelines recommend a Cologuard re-screening interval of 3 years. References: [place] Cancer Society Guideline for Colorectal Cancer Screening: https://www.cancer.org/cancer/jfusr-cuybzu-vvbvkt/ensamsbak-ycudzrqjt-uakjwew/ac s-rec ommendations.html.; Danny HARMAN, Seymour CR, Tenisha RebolledoK, Colorectal Cancer Screening: Recommendations for Physicians and Patients from the U.S. Multi-Society Task Force on Colorectal Cancer Screening , Am J Gastroenterology 2017; 112:5361-4446. TEST DESCRIPTION: Composite algorithmic analysis of stool [...] (Paola Santos al, N Engl J Med 2014;370(14):4804-2076.) Cologuard may produce a false negative or false positive result (no colorectal cancer or precancerous polyp present at colonoscopy follow up). A negative Cologuard test result does not guarantee the absence of CRC or advanced adenoma (pre-cancer). The current Cologuard screening interval is every 3 years. ([place] Cancer Society and U.S. Multi-Society Task Force). Cologuard performance data in a 10,000 patient pivotal study using colonoscopy as the reference method can be accessed at the following location: www.Namshi/results. Additional description of the Cologuard test process, warnings and precautions can be found at www.[employer]. Stool 01/06/2022 7:55 AM CDT 01/07/2022 12:14 PM CDT Chitra Almanzar MD LAB BODY FLUIDS AND STO OLS ORDERABLES Final Result [employer] (CLIA #:[id number]) [place] [address] * Screening Mammogram Bilateral W Roly (12/25/2020 [...] 1 or 2 Site (03/10/2019 2:08 PM DELTA SYSTEM FREIGHT CAR CLEANER) Anatomical Region Laterality Modality Body N/A Other 03/10/2019 4:05 PM DELTA SYSTEM FREIGHT CAR CLEANER Impressions 03/10/2019 4:06 PM DELTA SYSTEM FREIGHT CAR CLEANER Osteoporosis by WHO criteria. GENERAL GUIDELINES: According [...] Vince Garcia M.D. Narrative 03/10/2019 4:06 PM DELTA SYSTEM FREIGHT CAR CLEANER COMPLETION DATE: 03/10/2019 2:00 PM ORDERING HEALTHCARE PROVIDER: CHITRA ALMANZAR STUDY DESCRIPTION: DEXA AXIAL SKELETON BONE DENSITY 1 OR MORE SITES CLINICAL INDICATIONS: 63-year-old postmenopausal female, screening for osteoporosis. COMPARISON: None TECHNIQUE: Dual x-ray absorptiometry (DEXA) was performed using Hologic system. Bone mineralization and T score are [...] Dual x-ray absorptiometry (DEXA) was performed using Hologic system. Bone mineralization and T score are [...] by: Vince Garcia M.D. 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
--- OUTSIDE RECORDS SUMMARY | 2024-09-09 18:05 | XMS_ITS | Clinical Summary ---
Author Organization [facility] Care Team Providers Care Forms Analyst Name Role Phone Unavailable Primary Care Provider Unavailabl e Social History Tobacco Use Types Packs/Day Years Used Date Smoking Tobacco: Never Assessed Comments Unknown Sex and Gender Information Value Date Recorded Sex Assigned at Not on file Legal Sex Female 10:16 PM CDT Gender Identity Not on file Sexual Orientation Not on file Plan of Treatment Health Maintenance Due Date Last Done Comments DEXA Bone Density 1955 Hepatitis C Virus (HCV) Screening 1955 TdaP Immunization 1955 Colonoscopy 2002 Colorectal Cancer Screening 2002 Cologuard 08/22/2007 Immunochemical Fecal Occult Blood 08/22/2007 Mammogram 08/22/2007 Pneumococcal Immunization (5 0+ years) (1 of 1 - PCV) 08/22/2007 Zoster Immunization (1 of 2) 08/22/2007 Influenza Immunization (#1) 2023 SARS-COV-2 Immunization ( - season) 2023 Respiratory Syncytial Virus (RSV) Immunization (Adult) (1 - 1-dose 75+ series) 2032 Hepatitis B Immunization Aged Out No longer eligible based on patient's age to complete this topic Meningococcal Immunization (ACWY) Aged Out No longer eligible based on patient's age to complete this topic Rotavirus Immunization Aged Out No lo nger eligible based on patient's age to complete this topic
--- OUTSIDE RECORDS SUMMARY | 2024-09-09 20:29 | XMS_ITS | Encounter Summary ---
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
--- OUTSIDE RECORDS SUMMARY | 2024-09-09 20:29 | XMS_ITS | Encounter Summary ---
Author Organization [facility] Healthcare Address [address] [place] [address] Care Team Providers Care Yarn Salvager Name Role Phone Bin Almanzar MD Primary Care Provider Reason for Visit * Reason Onset Date Comments Medical Question/Miscellaneous 08/09/2024 Encounter Details Date Type Department Care Team (Late st Contact Info) Description 08/09/2024 Telephone [facility] Medical Group Primary Care at [address] [place] [address] Bin Almanzar MD [address] [place] [address] [address] [place] [address] Medical Question/Miscellaneous Social History Tobacco [...] on file 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
--- OUTSIDE RECORDS SUMMARY | 2024-09-09 20:29 | XMS_ITS | Clinical Summary ---
Author Organization [facility] Gradient X [facility] Address [address] [address] Phone Care Team Providers Care Recreational Specialist Name Role Phone YohanBin Primary Care Provider [phone] Allergies Active Allergy Reactions Criticality Noted Date [...] Splenic hemorrhage 04/13/2021 Overview (04/13/2021): FEBRUARY 2020- [facility]- HYPERCOAG WORK-UP AND CTA PLANN[facility] Acquired thrombophilia 04/13/202104/14 Overview (04/13/2021): LOW- [...] Comments Blood Pressure 100/68 04/14/2021 11:47 AM AERONAUTICAL PRODUCTS SALES ENGINEER Pulse 76 04/14/2021 11:47 AM AERONAUTICAL PRODUCTS SALES ENGINEER Temperature 36.8 C (98.2 F) 04/14/2021 11:47 AM AERONAUTICAL PRODUCTS SALES ENGINEER Respiratory Rate - - Oxygen Saturation 98% 04/14/2021 11:47 AM AERONAUTICAL PRODUCTS SALES ENGINEER Inhaled Oxygen Concentration - - Weight 47.2 kg (104 lb) 04/14/2021 11:47 AM AERONAUTICAL PRODUCTS SALES ENGINEER Height 161.5 cm (5' 3.6) 04/14/2021 11:47 AM CS T Body Mass Index 18.08 04/14/2021 11:47 AM AERONAUTICAL PRODUCTS SALES ENGINEER Plan of Treatment Health Maintenance Due Date [...] patient's age to complete this topic Insurance [email or web address] Program Care Teams Recreational Specialist Relationship Specialty Start Date End Date Bin Almanzar [address] [place] [address] [address] [place], [place] [id number] PCP - General Internal Medicine 04/14/21
--- OUTSIDE RECORDS SUMMARY | 2024-09-09 20:29 | XMS_ITS | Encounter Summary ---
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
--- OUTSIDE RECORDS SUMMARY | 2024-09-09 20:29 | XMS_ITS | Clinical Summary ---
Author Organization [facility] Address [address] [place] [address] Care Team Providers Care Light Rail Operator Name Role Phone Unavailable Primary Care Provider [...]
--- OUTSIDE RECORDS SUMMARY | 2024-09-09 20:29 | XMS_ITS | Clinical Summary ---
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
--- OUTSIDE RECORDS SUMMARY | 2024-09-09 20:31 | XMS_ITS | Clinical Summary ---
Author Organization [facility] Care Team Providers Care Air Analysis Engineering Technician Name Role Phone Unavailable Primary Care Provider [...]
--- OUTSIDE RECORDS SUMMARY | 2024-09-09 20:31 | XMS_ITS | Referral Summary ---
Author Organization [facility] Address [address] [place] [address] Care Team Providers Care Electrode Cleaning Machine Operator Name Role Phone Chitra Almanzar MD Primary Care Provider Encounters Date Type Department Care Team Description 08/09/2024 Telephone [facility] Medical Group Primary Care at [address] [phone] Chitra Almanzar MD Medical Question/Miscellaneou s 08/04/2024 Orders Only [address] [address] Rachel Ballard RN 08/04/2024 Orders Only [address] [address] Sima Glynn, RN 08/04/2024 Orders Only [facility] Medical Group Primary Care at [address] [phone] Chitra Almanzar MD Acute renal failure, unspecified acute renal failure type (Primary Dx) 08/03/2024 Orders Only [address] [address] Rachel Ballard, WILLARD 08/03/2024 Orders Only [facility] Medical Group Primary Care at [address] [address] Chitra Almanzar MD Acute renal failure, unspecified acute renal failure type (Primary Dx) 08/02/2024 Orders Only [facility] Medical Group Primary Care at [address] [phone] Chitra Almanzar MD Dehydration (Primary Dx) 08/01/2024 Telephone [facility] Group Primary Care at [address] [address] Chitra Almanzar MD 08/01/2024 Orders Only [facility] Group Primary Care at [address] [address] Chitra Almanzar MD 08/01/2024 1:15 PM CDT Office Visit [facility] Primary Care at [address] [address] Chitra Almanzar MD 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) (Primary Dx); Body mass index (BMI) less than 18.5; Diabetic neuropathy, type I diabetes mellitus (HCC); Gastroesophageal reflux disease without esophagitis; Gastroparesis due to DM (HCC); Stage 3b chronic kidney disease (HCC); Splenic infarct; Protein-calorie malnutrition, unspecified severity 08/01/2024 11:00 AM CDT Office Visit [facility] Diabetes Endocrine Care at [address] [phone] Lauren Chase DO Type 1 diabetes mellitus with hyperglycemia (HCC) (Primary Dx); Hypothyroidism, unspecified type; Acquired hypothyroidism 07/26/2024 Results Follow-Up [facility] Diabetes Endocrine Care at [address] [phone] Lauren Chase DO Thyroid Function [place], T4, free 07/25/2024 8:05 PM CDT - 07/25/2024 11:59 PM CDT Hospital Encounter [address] [address] Hypothyroidism, unspecified type; Type 1 diabetes mellitus with hyperglycemia (HCC) Discharge Disposition: Discharge to home or self care 07/25/2024 8:03 PM CDT - 07/25/2024 11:59 PM CDT Hospital Encounter [facility] [address] [place] [address] Hypertension associated with diabetes (HCC) Discharge Disposition: Discharge to home or self care 07/25/2024 9:00 AM CDT Lab [facility] Medical Group Outpatient Lab at [address] [address] Type 1 diabetes mellitus with hyperglycemia (HCC) (Primary Dx); Renal failure, chronic, stage 3 (moderate) (HCC) 07/24/2024 ACO Clinical Pharmacist [facility] Care Organization [address] [place] [id number] Laisha Dumont RPh from Last 3 Months Allergies Active Allergy Reactions Criticality Noted Date Comments Acyclovir Other (See comments) Reaction: abdominal distress, Codeine Medications blood glucose diagnostic (UltromexTOUCH ULTRA TEST) strip test by fingerstick route [...] 24 Active insulin pump syringe (MiniMed Syringe [place]) 3 mL misc 1 Device every 3 [...] 01/06/20 24 Active blood-glucose meter,continuous (Dexcom G7 Social Services Specialist) misc 1 Device continuously To continuously monitor [...] basis. Assessment & Plan (04/07/2022 2:23 PM EMERGENCY SERVICE WORKER): Diagnosed at the age of 32. Complicated [...] basis. Assessment & Plan (03/25/2021 12:12 PM EMERGENCY SERVICE WORKER): Diagnosed at the age of 32. Complicated [...] basis. Assessment & Plan (03/13/2020 11:42 AM EMERGENCY SERVICE WORKER): Diagnosed at the age of 32. Complicated [...] Levothyroxine. Assessment & Plan (04/07/2022 2:05 PM EMERGENCY SERVICE WORKER): Patient is on levothyroxine 75 mcg - [...] visit. Assessment & Plan (03/25/2021 12:13 PM EMERGENCY SERVICE WORKER): Patient is on levothyroxine 50 mcg /day [...] visit. Assessment & Plan (03/13/2020 11:44 AM EMERGENCY SERVICE WORKER): Patient has been on levothyroxine 100 mcg [...] on file Legal Sex Female 11:55 PM EMERGENCY SERVICE WORKER Gender Identity Not on file Sexual Orientation [...] CREATININE RATIO, URINE Routine 04/14/2024 8:23 AM EMERGENCY SERVICE WORKER Diabetic neuropathy, type I diabetes mellitus (HCC) [...] Read Routine (OP Routine) 03/10/2019 2:08 PM EMERGENCY SERVICE WORKER Disorder of bone, unspecified Osteoarthritis, unspecified osteoarthritis [...] BLOOD ORDERABLES Fi nal Result BUD JUDIE [address] [address] Department [place] [place] [address] * (ABNORMAL) Thyroid Function [place] (07/25/2024 11:00 AM CDT) TSH 6.81(H) 0.30 - 4.20 mcIUnit/mL Blood 07/25/2024 11:0 0 AM CDT 07/25/2024 8:16 PM CDT Lauren Chase DO LAB BLOOD ORDERABLES Final Result Performing Organization Address [facility] Co de Phone Number BUD JUDIE [address] [address] Department of [employer] [place], [place] [id number] * (ABNORMAL) C-peptide (07/25/2024 11:00 AM CDT) C-peptide <0.02(L) 1.10 - 4.40 ng/mL Comment:Testing performed by : [facility], [address] [facility], [place]., [address] Blood 07/25/2024 11:0 0 AM CDT 07/26/2024 10:27 AM CDT Lauren Chase DO LAB BLOOD ORDERABLES Final Result BUD JUDIE [address] [address] Department [place] [employer] [address] * (ABNORMAL) T4, free (07/25/2024 11:00 AM CDT) Free T4 0.85(L) 0.90 - 1.70 ng/dL Blood 07/25/2024 11:0 0 AM CDT 07/25/2024 8:16 PM CDT Lauren Chase DO LAB BLOOD ORDERABLES Final Result Performing Organization Address [facility] de Phone Number BUD [phone] [address] [facility] [employer] [address] * (ABNORMAL) Hemoglobin A1c (07/25/2024 11:00 AM CDT) Hgb A1C 7.7(H) 4.0 - 5.6 % Estimated Average Glucose 174 mg/dL BUD DIMAS Comment: The ADA recommends reporting an estimated Average Glucose (eAG) with all Hemoglobin A1c results using the equation derived from a study of 507 normal and diabetic adults. Minority populations were underrepresented and children were not included. (Diabetes Care 31:0929-0160, 2008). The eAG is not equivalent to a fasting glucose. Blood 07/25/2024 11:0 0 AM CDT 07/25/2024 8:16 PM CDT Chitra Almanzar MD LAB BLOOD ORDERABLES Fi nal Result Performing Organization Address [facility] de Phone Number BUD [phone] [address] [facility] [employer] [address] * Lipid panel (07/25/2024 11:00 AM CDT) [...] MD LAB BLOOD ORDERABLES Fi nal Result [facility] [address] [address] Department of Laboratories [place], [place] [id number] * (ABNORMAL) Comprehensive metabolic panel (07/25/2024 11:00 [...] MD LAB BLOOD ORDERABLES Fi nal Result [facility] [address] [address] Department [place] [address] * (ABNORMAL) Albumin Creatinine Ratio, Urine (04/14/2024 8:23 AM EMERGENCY SERVICE WORKER) Albumin Ur 954.1 mg/L Comment: Interpretive Data No reference range established. Current interpretive data was last revised 2018. Creatinine Ur 131.7 mg/dL CERNER Comment: Interpretive Data No reference range established. Current interpretive data was last revised 2018. Albumin Creatinine Ratio, Ur 724(H) 1 - 29 mg/g CERNER CH Urine 04/14/2024 8:23 AM EMERGENCY SERVICE WORKER 04/14/2024 8:23 PM EMERGENCY SERVICE WORKER us Chitra Almanzar MD LAB URINE ORDERABLES Fi nal Result BUD DIMAS [address] [address] Department [place] [address] * (ABNORMAL) Diabetic Eye Exam (04/12/2024) Generic External Data Provider [facility] E Final Result * Stool DNA - Cologuard (01/06/2022 7:55 AM CDT) Stool DNA - Cologuard Negative Negative Company (CLIA #:[id number]) Comment: NEGATIVE TEST RESULT. A negative Cologuard [...] Barajas et al, N Engl J Med 2014;370(14):1000-8718) The normal value (reference range) for this assay is negative. COLOGUARD RE-SCREENING RECOMMENDATION: Periodic colorectal cancer screening is an important part of preventive healthcare for asymptomatic individuals at average risk for colorectal cancer. Following a negative Cologuard result, the [place] Cancer Society and U.S. Multi-Society Task Force screening guidelines recommend a Cologuard re-screening interval of 3 years. References: [place] [employer] Guideline for Colorectal Cancer Screening: https://www.cancer.org/cancer/ugflm-tmbnxn-zmdwgh/hpgwomqyk-zctjfammf-eoaeyoa/ac s-rec ommendations.html.; Danny HARMAN, Seymour CR, Tenisha RebolledoK, Colorectal Cancer Screening: Recommendations for Physicians and Patients from the U.S. Multi-Society Task Force on Colorectal Cancer Screening , Am J Gastroenterology 2017; 112:8070-8864. TEST DESCRIPTION: Composite algorithmic analysis of stool [...] (Paola Santos al, N Engl J Med 2014;370(14):7368-1827.) Cologuard may produce a false negative or false positive result (no colorectal cancer or precancerous polyp present at colonoscopy follow up). A negative Cologuard test result does not guarantee the absence of CRC or advanced adenoma (pre-cancer). The current Cologuard screening interval is every 3 years. ([place] Cancer Society and U.S. Multi-Society Task Force). Cologuard performance data in a 10,000 patient pivotal study using colonoscopy as the reference method can be accessed at the following location: www.DDStocks/results. Additional description of the Cologuard test process, warnings and precautions can be found at www.HandInScan.Company. Stool 01/06/2022 7:55 AM CDT 01/07/2022 12:14 PM CDT Chitra Almanzar MD LAB BODY FLUIDS AND STO OLS ORDERABLES Final Result [employer] (CLIA #:[id number]) [place] [address] * Screening Mammogram Bilateral W Roly (12/25/2020 [...] 1 or 2 Site (03/10/2019 2:08 PM EMERGENCY SERVICE WORKER) Anatomical Region Laterality Modality Body N/A Other 03/10/2019 4:05 PM EMERGENCY SERVICE WORKER Impressions 03/10/2019 4:06 PM EMERGENCY SERVICE WORKER Osteoporosis by WHO criteria. GENERAL GUIDELINES: According [...] Vince Garcia M.D. 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
--- OUTSIDE RECORDS SUMMARY | 2024-09-09 20:31 | XMS_ITS | Clinical Summary ---
Author Organization [facility] Address [address] [place] [address] Care Team Providers Care Jira Developer Name Role Phone Chitra Almanzar MD Primary [...] 24 Active insulin pump syringe (MiniMed Syringe Maynard) 3 mL misc 1 Device every 3 [...] 01/06/20 24 Active blood-glucose meter,continuous (Dexcom G7 Federal District Law Clerk) misc 1 Device continuously To continuously monitor [...] basis. Assessment & Plan (04/07/2022 2:23 PM BALLISTIC EXPERT): Diagnosed at the age of 32. Complicated [...] basis. Assessment & Plan (03/25/2021 12:12 PM BALLISTIC EXPERT): Diagnosed at the age of 32. Complicated [...] basis. Assessment & Plan (03/13/2020 11:42 AM BALLISTIC EXPERT): Diagnosed at the age of 32. Complicated [...] Levothyroxine. Assessment & Plan (04/07/2022 2:05 PM BALLISTIC EXPERT): Patient is on levothyroxine 75 mcg - [...] visit. Assessment & Plan (03/25/2021 12:13 PM BALLISTIC EXPERT): Patient is on levothyroxine 50 mcg /day [...] visit. Assessment & Plan (03/13/2020 11:44 AM BALLISTIC EXPERT): Patient has been on levothyroxine 100 mcg [...] Type Department Care Team Description 08/09/2024 Telephone [facility] Primary Care at [address] [address] Chitra Almanzar MD Medical Question/Miscellaneou s 08/04/2024 Orders Only [address] [address] Rachel Ballard RN 08/04/2024 Orders Only [address] [address] Sima Glynn RN 08/04/2024 Orders Only [facility] Primary Care at [address] [address] Chitra Almanzar MD Acute renal failure, unspecified acute renal failure type (Primary Dx) 08/03/2024 Orders Only [address] [address] Rachel Ballard RN 08/03/2024 Orders Only [facility] Primary Care at [address] [address] Chitra Almanzar MD Acute renal failure, unspecified acute renal failure type (Primary Dx) 08/02/2024 Orders Only [facility] Primary Care at [address] [address] Chitra Almanzar MD Dehydration (Primary Dx) 08/01/2024 1:15 PM CDT Office Visit [facility] Primary Care at [address] [address] Chitra Almanzar MD 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) (Primary Dx); Body mass index (BMI) less than 18.5; Diabetic neuropathy, type I diabetes mellitus (HCC); Gastroesophageal reflux disease without esophagitis; Gastroparesis due to DM (HCC); Stage 3b chronic kidney disease (HCC); Splenic infarct; Protein-calorie malnutrition, unspecified severity 08/01/2024 11:00 AM CDT Office Visit [facility] Diabetes Endocrine Care at [address] [address] Lauren Chase DO Type 1 diabetes mellitus with hyperglycemia (HCC) (Primary Dx); Hypothyroidism, unspecified type; Acquired hypothyroidism 08/01/2024 Telephone [facility] Primary Care at [address] [address] Chitra Almanzar MD 08/01/2024 Orders Only [facility] Primary Care at [address] [address] Chitra Almanzar MD 07/26/2024 Results Follow-Up [facility] Diabetes Endocrine Care at [address] [address] Lauren Chase DO Thyroid Function [place], T4, free 07/25/2024 8:05 PM CDT - 07/25/2024 11:59 PM CDT Hospital Encounter [address] [address] Hypothyroidism, unspecified type; Type 1 diabetes mellitus with hyperglycemia (HCC) Discharge Disposition: Discharge to home or self care 07/25/2024 8:03 PM CDT - 07/25/2024 11:59 PM CDT Hospital Encounter [address] [phone] Hypertension associated with diabetes (HCC) Discharge Disposition: Discharge to home or self care 07/25/2024 9:00 AM CDT Lab [facility] Outpatient Lab at [address] [phone] Type 1 diabetes mellitus with hyperglycemia (HCC) (Primary Dx); Renal failure, chronic, stage 3 (moderate) (HCC) 07/24/2024 ACO Clinical Pharmacist [facility] Care Organization [address] [place] [address] Laisha Dumont, [facility] from Last 3 Months Immunizations Immunization [...] on file Legal Sex Female 11:55 PM BALLISTIC EXPERT Gender Identity Not on file Sexual Orientation [...] CREATININE RATIO, URINE Routine 04/14/2024 8:23 AM BALLISTIC EXPERT Diabetic neuropathy, type I diabetes mellitus (HCC) [...] Read Routine (OP Routine) 03/10/2019 2:08 PM BALLISTIC EXPERT Disorder of bone, unspecified Osteoarthritis, unspecified osteoarthritis [...] ORDERABLES Fi nal Result Performing Organization Address [facility]/ZIP Co de Phone Number BUD DIMAS [address] [place] [address] * (ABNORMAL) Thyroid Function [place] (07/25/2024 11:00 AM CDT) TSH 6.81(H) 0.30 - 4.20 mcIUnit/mL Blood 07/25/2024 11:0 0 AM CDT 07/25/2024 8:16 PM CDT us Lauren Chase DO LAB BLOOD ORDERABLES Final Result Performing Organization Address [facility] Co de Phone Number BUD DIMAS [address] [place] [place] [address] * (ABNORMAL) C-peptide (07/25/2024 11:00 AM CDT) C-peptide <0.02(L) 1.10 - 4.40 ng/mL Comment:Testing performed by : [facility], [address] [facility], [place]., [address] Blood 07/25/2024 11:0 0 AM CDT 07/26/2024 10:27 AM CDT us Lauren Chase DO LAB BLOOD ORDERABLES Final Result Performing Organization Address [facility] Co de Phone Number ANURAGJAZZY DIMAS [address] [place] [place] [address] * (ABNORMAL) T4, free (07/25/2024 11:00 AM CDT) Free T4 0.85(L) 0.90 - 1.70 ng/dL Blood 07/25/2024 11:0 0 AM CDT 07/25/2024 8:16 PM CDT Lauren Chase DO LAB BLOOD ORDERABLES Final Result Performing Organization Address [facility] de Phone Number BUD DIMAS [address] Department [place] [address] * (ABNORMAL) Hemoglobin A1c (07/25/2024 11:00 AM CDT) Hgb A1C 7.7(H) 4.0 - 5.6 % Estimated Average Glucose 174 mg/dL BUD DIMAS Comment: The ADA recommends reporting an estimated Average Glucose (eAG) with all Hemoglobin A1c results using the equation derived from a study of 507 normal and diabetic adults. Minority populations were underrepresented and children were not included. (Diabetes Care 31:2528-7768, 2008). The eAG is not equivalent to a fasting glucose. Blood 07/25/2024 11:0 0 AM CDT 07/25/2024 8:16 PM CDT Chitra Almanzar MD LAB BLOOD ORDERABLES Fi nal Result Performing Organization Address [facility] de Phone Number BUD DIMAS [address] [place] [address] * Lipid panel (07/25/2024 11:00 AM CDT) [...] LAB BLOOD ORDERABLES Fi nal Result CERNER [address] [place] [address] * (ABNORMAL) Comprehensive metabolic panel [...] ORDERABLES Fi nal Result Performing Organization Address [facility] Co de Phone Number BUD DIMAS [address] [place] [address] * (ABNORMAL) Albumin Creatinine Ratio, Urine (04/14/2024 8:23 AM BALLISTIC EXPERT) Albumin Ur 954.1 mg/L Comment: Interpretive Data No reference range established. Current interpretive data was last revised 2018. Creatinine Ur 131.7 mg/dL CERNER Comment: Interpretive Data No reference range established. Current interpretive data was last revised 2018. Albumin Creatinine Ratio, Ur 724(H) 1 - 29 mg/g [facility] Urine 04/14/2024 8:23 AM BALLISTIC EXPERT 04/14/2024 8:23 PM BALLISTIC EXPERT Chitra Almanzar MD LAB URINE ORDERABLES Fi nal Result Performing Organization Address City/[facility]/ZIP Co de Phone Number BUD DIMAS [address] [place] [address] * (ABNORMAL) Diabetic Eye Exam (04/12/2024) Generic External Data Provider HEALTH MAINTENANC E Final Result * Stool DNA - Cologuard (01/06/2022 7:55 AM CDT) Stool DNA - Cologuard Negative Negative eventuosity (CLIA #:[id number]) Comment: NEGATIVE TEST RESULT. A negative Cologuard [...] (Paola Santos al, N Engl J Med 2014;370(14):7257-0824) The normal value (reference range) for this assay is negative. COLOGUARD RE-SCREENING RECOMMENDATION: Periodic colorectal cancer screening is an important part of preventive healthcare for asymptomatic individuals at average risk for colorectal cancer. Following a negative Cologuard result, the [place] Cancer Society and U.S. Multi-Society Task Force screening guidelines recommend a Cologuard re-screening interval of 3 years. References: [place] [employer] Guideline for Colorectal Cancer Screening: https://www.cancer.org/cancer/ytbvn-krapqs-vwuqun/bfniwtnqk-dagwyjmcf-clovtfd/ac s-rec ommendations.html.; Danny DK, Seymour CR, Tenisha RebolledoK, Colorectal Cancer Screening: Recommendations for Physicians and Patients from the U.S. Multi-Society Task Force on Colorectal Cancer Screening , Am J Gastroenterology 2017; 112:1888-3335. TEST DESCRIPTION: Composite algorithmic analysis of stool [...] (Paola Santos al, N Engl J Med 2014;370(14):3706-7346.) Cologuard may produce a false negative or false positive result (no colorectal cancer or precancerous polyp present at colonoscopy follow up). A negative Cologuard test result does not guarantee the absence of CRC or advanced adenoma (pre-cancer). The current Cologuard screening interval is every 3 years. ([place] Cancer Society and U.S. Multi-Society Task Force). Cologuard performance data in a 10,000 patient pivotal study using colonoscopy as the reference method can be accessed at the following location: www.[employer].Angiodroid/results. Additional description of the Cologuard test process, warnings and precautions can be found at www.[employer].Angiodroid. Stool 01/06/2022 7:55 AM CDT 01/07/2022 12:14 PM CDT Chitra Almanzar MD LAB BODY FLUIDS AND STO OLS ORDERABLES Final Result [employer] (CLIA #:[id number]) [place] [address] * Screening Mammogram Bilateral W Roly (12/25/2020 [...] 1 or 2 Site (03/10/2019 2:08 PM BALLISTIC EXPERT) Anatomical Region Laterality Modality Body N/A Other 03/10/2019 4:05 PM BALLISTIC EXPERT Impressions 03/10/2019 4:06 PM BALLISTIC EXPERT Osteoporosis by WHO criteria. GENERAL GUIDELINES: According [...] Vince Garcia M.D. Narrative 03/10/2019 4:06 PM BALLISTIC EXPERT COMPLETION DATE: 03/10/2019 2:00 PM ORDERING HEALTHCARE PROVIDER: CHITRA ALMANZAR STUDY DESCRIPTION: DEXA AXIAL SKELETON BONE DENSITY 1 OR MORE SITES CLINICAL INDICATIONS: 63-year-old postmenopausal female, screening for osteoporosis. COMPARISON: None TECHNIQUE: Dual x-ray absorptiometry (DEXA) was performed using Twenty Jeans system. Bone mineralization and T score are [...] Dual x-ray absorptiometry (DEXA) was performed using Holo[employer].com system. 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
--- OUTSIDE RECORDS SUMMARY | 2024-09-09 20:31 | XMS_ITS | Encounter Summary ---
Author Organization [facility] [employer] [employer] [facility] Address [address] [place] [address] Phone Care Team Providers Care Look Out Tower Fire Watcher Name Role Phone Bin Almanzar MD Primary Care Provider Cristal Funes RN Unavailable [phone] Encounter Details Date Type Department Care Team (Late st Contact Info) Description 04/26/2017 Orders Only [facility] ProviderHaven MD [address] [place] [address] Social History Tobacco Use Types Packs/Day Years Used Date Smoking Tobacco: Every Day Smokeless Tobacco: Never Alcohol Use Standard Drinks/Week Comments No 0 (1 standard drink = 0.6 oz pur e alcohol) Comments Unknown Sex and Gender Information Value Date Recorded Sex Assigned at Not on file Legal Sex Female 11:55 PM ASSISTANT TEACHER Gender Identity Not on file Sexual Orientation Not on file documented as of this encounter Plan of Treatment Not on file documented as of this encounter Procedures Procedure Name Priority Date/Time Associated Diagnosis Comments DISCHARGE LABORATORY CUMULATIVE REPORT 04/26/2017 12:00 AM ASSISTANT TEACHER documented in this encounter Results * DISCHARGE LABORATORY CUMULATIVE REPORT (04/26/2017 12:00 AM ASSISTANT TEACHER) Narrative 04/26/2017 12:00 AM ASSISTANT TEACHER Ordered by an unspecified provider. 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
--- OUTSIDE RECORDS SUMMARY | 2024-09-09 20:31 | XMS_ITS | Encounter Summary ---
Author Organization [facility] Address [address] [place] [address] Care Team Providers Care Advanced Registered Nurse Name Role Phone Bin Almanzar MD Primary Care Provider Encounter Details Date Type Department Care Team (Late st Contact Info) Description 09/14/2023 Telephone [facility] Primary Care at [address] [place] [address] Bin Almanzar MD [address] [place] [address] [address] [place] [address] Social History Tobacco Use Types [...] on file Legal Sex Female 11:55 PM SUPPORT SERVICES COORDINATOR Gender Identity Not on file Sexual Orientation Not on file documented as of this encounter Plan of Treatment Not on file documented as of this encounter Visit Diagnoses Not on filedocumented in this encounter Additional Health Concerns Infection Onset Date Last Indicated Resolved Time 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
--- OUTSIDE RECORDS SUMMARY | 2024-09-09 20:31 | XMS_ITS | Encounter Summary ---
Author Organization [facility] Address [address] [place] [address] Phone Care Team Providers Care Film Processing Shift Supervisor Name Role Phone Bin Almanzar MD Primary Care Provider Cristal Funes RN Unavailable [phone] Encounter Details Date Type Department Care Team (Late st Contact Info) Description 07/29/2017 Orders Only [facility] ProviderHaven MD [address] [place] [address] Social History Tobacco Use Types Packs/Day Years Used Date Smoking Tobacco: Every Day Smokeless Tobacco: Never Alcohol Use Standard Drinks/Week Comments No 0 (1 standard drink = 0.6 oz pur e alcohol) Comments Unknown Sex and Gender Information Value Date Recorded Sex Assigned at Not on file Legal Sex Female 11:55 PM FELT STRIP FINISHER Gender Identity Not on file Sexual Orientation [...] documented as of this encounter Care Teams Film Processing Shift Supervisor Relationship Specialty Start Date End Date Bin Almanzar MD PCP - General 06/05/16 Cristal Funes, RN [address] [place] [address] [employer] Fruit 06/17/17 08/02/17 documented as of this encounter
--- OUTSIDE RECORDS SUMMARY | 2024-09-09 20:31 | XMS_ITS | Clinical Summary ---
Author Organization [facility] Address [address] [place] [address] Care Team Providers Care French Comber Name Role Phone Unavailable Primary Care Provider Unavailabl e Source Comments [facility],non-owned Affiliates and Associated Physician Practices is amultiple site organization consisting of ambulatory clinics and hospital sitesin [place], [place], [place] and [place]. This disclosure is being madepursuant to the Care Everywhere program and may not contain all information available regarding this patient. Last updated 17.[facility] Allergies No known active allergies Medications * [...]
== END 2024-09-09 21:12 | disposition left against medical advice (07) ==
PROVIDERS: PCP Internal Medicine
DX: K08.89 Other specified disorders of teeth and supporting structures (principal)
CPT/HCPCS: 99199

== ENCOUNTER 2024-10-03 12:02 | Emergency (ER) | payer MEDICARE, SELFPAY ==
--- OUTSIDE RECORDS SUMMARY | 2024-10-03 12:05 | XMS_ITS | Patient Health Record ---
Author Organization [facility] Address [address] [place] [id number] Care Team Providers Care Supervisor Pressing Department Name Role Phone LizMichaelMyranda Unavailable Unavail able REMINGTON VELAZQUZEA Unavailable [phone] Allergies No Known Allergies Reason For Referral [...] a day Active Vitamin D3 250 MCG (43787 UT) as directed Orally Active Cyanocobalamin ER [...] W/U Status Risk Notes Problem Mixed hyperlipidemia (225935843) Mixed hyperlipidemia (E78.2) Active confirmed Problem Chronic kidney disease stage 3A (disorder) (356715332) Chronic kidney disease, stage 3a (N18.31) Active confirmed Problem Disorder of autonomic nervous system (85238073) Autonomic dysfunction (G90.9) Active confirmed Problem Disorder of nervous system due to type 1 diabetes mellitus (disorder) (703443285) Type 1 diabetes mellitus with other neurologic complication (E10.49) Active confirmed Problem Abnormal gait (03812447) Gait disturbance (R26.9) Active confirmed Problem Acute hyperkalemia (8194676) Acute hyperkalemia (E87.5) Active confirmed Vital Signs Heart Rate 70 /min 11/03/2023 Temperature 97.9 degrees Fahrenheit 11/03/2023 Respiratory Rate 18 /min 11/03/2023 Oximetry 98 % 11/03/2023 Blood pressure diastolic 72 mm Hg 11/03/2023 Weight-kg 44.27 kg 11/03/2023 Blood pressure systolic 132 mm Hg 11/03/2023 Weight 97.6 lbs 11/03/2023 Encounters Encounter Location Date Provider Diagnosis [address] [id number] 11/03/2023 ASHLEY JUAN Chronic kidney disease, stage [...] 07/01/2022 Urine-spot creatinine 07/01/2022 Urine-spot creatinine 11/03/2023 [id number]/RANDOM 11/03/2023 [id number]/RANDOM 07/01/2022 Insurance Providers Payer Name Payer Address Payer Phone Subscriber Number Group Number Insured Name Patient Relationship to Insured Coverage Start Date Coverage End Date Colin [address]ACKAY [address] [place] [address] [id number] Josh Marie Self - patient is the insured Medical (General) History Medical History History ICD Code Problems: Problem:Problem
--- OUTSIDE RECORDS SUMMARY | 2024-10-03 12:05 | XMS_ITS | Clinical Summary ---
[facility] Address [address] [address] Care Team Providers Care Lead Pl Sql Developer Name Role Phone Bin Almanzar MD Primary Care Provider [phone] Allergies Active Allergy Reactions Criticality Noted Date [...] on file Legal Sex Female 1:22 PM AVIONICS SUPERVISOR Gender Identity Not on file Sexual [...] A AND B GENERIC PAYOR Care Teams Lead Pl Sql Developer Relationship Specialty Start Date End Date Bin Almanzar MD [address] [place] [address] PCP - General Internal Medicine 02/16/20
--- OUTSIDE RECORDS SUMMARY | 2024-10-03 12:05 | XMS_ITS ---
Author Organization [facility] Address [address] [place] [id number] Care Team Providers Care Wood Strip Block Floor Installer Name Role Phone IgnacionazAdriana Palma Unavailable Unavail able REMINGTON MARTINEZA Unavailable [phone] Allergies No Known Allergies Medications Medication SIG (Take, Route, Frequency, Duration) Notes Start Date End Date Status Midodrine HCl 5 MG 1 tablet Orally Twic e a day; Duration: 90 days 04/08/2022 Active Aspir-Low 81 MG 1 tablet Orally Once a day Active Vitamin D3 250 MCG (42571 UT) as directed Orally Active Cyanocobalamin ER [...] W/U Status Risk Notes Problem Acute hyperkalemia (1353066) Acute hyperkalemia (E87.5) Active confirmed Vital Signs Temperature 97.9 degrees Fahrenheit 08/28/20 24 Blood pressure systolic 132 mm Hg 11/03/19 24 Blood pressure diastolic 72 mm Hg 024 Heart Rate 70 /min 11/03/2023 Respiratory Rate 18 /min 11/03/2023 Weight 97.6 lbs 11/03/2023 Oximetry 98 % 11/03/2023 Weight-kg 44.27 kg 11/03/2023 Encounters Encounter Location Date Provider Diagnosis [facility] [address] [phone] 11/03/2023 ASHLEY MARTINEZ Chronic kidney disease, stage [...] 11/03/2023 Urinalysis, Complete 11/03/2023 Urine-spot creatinine 11/03/2023 [id number]/RANDOM 11/03/2023 Next Appt Details Follow Up: 1 [...] Notes * Josh MARIE:[birth year] (69 yo F)Acc No.[id number]:11/03/2023 Progress Notes Patient: Josh FREEMAN Provider: Artis Martinez MD :1955 A ge:68 Y S ex:Female Date:11/03/2023 Address:[address] [place], [place] [id number] Subjective: * Chief Complaints: * * HPI: [...] day , Taking Vitamin D3 250 MCG (87569 UT) Tablet as directed Orally , Taking [...] LABS. * Billing Information: * Visit Code: 90036 Office Visit, Est Pt., Level 3. 86902 Office Visit, Est Pt., Level 4. * Procedure Codes: * Electronic signature of ANETTE MARTINEZ MD on 10/03/2024 at 12:04 PM CDT Sign off status: Pending * Provider: Artis Martinez MD Date: 11/03/2023 Generated for Arron banda/Estee/Mushtaqitting on: 10/03/2024 12:04 PM CDT History and Physical Notes * [...]
--- OUTSIDE RECORDS SUMMARY | 2024-10-03 12:05 | XMS_ITS | Clinical Summary ---
Author Organization [facility] [employer] [facility] Address [address] [address] Phone Care Team Providers Care Tool Sharpener Name Role Phone YohanBin Primary Care Provider [phone] Allergies Active Allergy Reactions Criticality Noted Date [...] Splenic hemorrhage 04/13/2021 Overview (04/13/2021): FEBRUARY 2020- [facility]- HYPERCOAG WORK[facility] Acquired thrombophilia 04/13/202104/14 Overview (04/13/2021): [...] Comments Blood Pressure 100/68 04/14/2021 11:47 AM ASSISTANT EDITOR Pulse 76 04/14/2021 11:47 AM ASSISTANT EDITOR Temperature 36.8 C (98.2 F) 04/14/2021 11:47 AM ASSISTANT EDITOR Respiratory Rate - - Oxygen Saturation 98% 04/14/2021 11:47 AM ASSISTANT EDITOR Inhaled Oxygen Concentration - - Weight 47.2 kg (104 lb) 04/14/2021 11:47 AM ASSISTANT EDITOR Height 161.5 cm (5' 3.6) 04/14/2021 11:47 AM CS T Body Mass Index 18.08 04/14/2021 11:47 AM ASSISTANT EDITOR Plan of Treatment Health Maintenance Due Date [...] Diabetes: Hemoglobin A1C 06/19/2021 03/21/2021 Influenza Vaccine (#1) 2024 Hepatitis B Vaccine Aged Out No longe r eligible based on patient's age to complete this topic Insurance [employer] Program Care Teams Tool Sharpener Relationship Specialty Start Date End Date Bin Almanzar [address] [place] [address] [address] VALDIV[address] [place], [place] [id number] PCP - General Internal Medicine 04/14/21
--- OUTSIDE RECORDS SUMMARY | 2024-10-03 12:05 | XMS_ITS | Encounter Summary ---
Author Organization [facility] Healthcare Address [address] [place] [address] Care Team Providers Care Jar Filler Name Role Phone Bin Almanzar MD Primary Care Provider Reason for Visit * Reason Onset Date Comments Medical Question/Miscellaneous 09/20/2024 Encounter Details Date Type Department Care Team (Late st Contact Info) Description 09/20/2024 Telephone [facility] Medical Group Primary Care at [address] [place] [address] Bin Almanzar MD [address] [place] [address] [address] [place] [address] Medical Question/Miscellaneous Social History Tobacco [...] on file Legal Sex Female 11:55 PM AUTOMOTIVE PARTS COUNTER ASSOCIATE Gender Identity Not on file Sexual Orientation Not on file documented as of this encounter Miscellaneous Notes * Telephone Encounter - Evelia Adams MA - 09/21/2024 10:08 AM CDT Patient stated it was discussed but since she has discontinued one of her medications all of her problems have been solved and is no longer needing. fyi * Telephone Encounter - Bin Almanzar MD - 09/21/2024 9:01 AM CDT I do not know either but if you could please call the patient and see if she is expecting somethingto be done that might give us a clue where to start * Telephone Encounter - Petrona Chen - 09/20/2024 1:26 PM CDT I have no clue what is going on this message make no sense Dr Almanzar do you know anything about this * Telephone Encounter - Nighat Benson - 09/20/2024 11:55 AM CDT Medical Question/Miscellaneous Caller???s Concern: called to say that they received the work cue line up for the patient but no orders for this they are asking for the orders,. They are also asking if it was supposed to be set at [place] or not. Please advise Does message need to be routed? 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
--- OUTSIDE RECORDS SUMMARY | 2024-10-03 12:07 | XMS_ITS | Encounter Summary ---
Author Organization 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
--- OUTSIDE RECORDS SUMMARY | 2024-10-03 12:07 | XMS_ITS | Clinical Summary ---
Author Organization [facility] Address [address] [place] [id number] Care Team Providers Care Laboratory Mechanic Helper Name Role Phone Unavailable Primary Care Provider [...]
--- OUTSIDE RECORDS SUMMARY | 2024-10-03 12:08 | XMS_ITS ---
Author Organization [facility] Address [address] [place] [id number] Care Team Providers Care Print Shop Stenographer Name Role Phone Myranda Hill Unavailable Unavail able ASHLEY MARTINEZ Unavailable [phone] Encounters Encounter Location Date Provider Diagnosis [facility] [address] [place], [place] [id number] 06/22/2023 ASHLEY MARTINEZ Plan Of Treatment No Information Progress Notes * Josh MARIE:[birth year] (69 yo F)Acc No.[id number]:06/22/2023 Progress Notes Patient: Josh FREEMAN Provider: Artis Martinez MD :1955 A ge:67 Y S ex:Female Date:06/22/2023 Address:[address] [place], [place] [id number] Subjective: * Chief Complaints: * * Medical History: Objective: * Vitals: Assessment: Plan: * Treatment: * Billing Information: * Visit Code: * Procedure Codes: * Electronic signature of ANETTE MARTINEZ MD on 10/03/2024 at 12:07 PM CDT Sign off status: Pending * Provider: Artis Martinez MD Date: 06/22/2023 Generated for Arron banda/Estee/eTransmitting on: 10/03/2024 12:07 PM CDT
--- OUTSIDE RECORDS SUMMARY | 2024-10-03 12:08 | XMS_ITS | Encounter Summary ---
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
--- OUTSIDE RECORDS SUMMARY | 2024-10-03 12:08 | XMS_ITS | Clinical Summary ---
Author Organization [facility] Address [address] [place] [address] Care Team Providers Care Top Former Name Role Phone Unavailable Primary Care Provider Unavailabl e Source Comments [facility],non-owned Affiliates and Associated Physician Practices is amultiple site organization consisting of ambulatory clinics and hospital sitesin [place], [place], [place] and [place]. This disclosure is being madepursuant to the Care Everywhere program and may not contain all information available regarding this patient. Last updated 17.[facility] Allergies No known active allergies Medications * [...]
--- OUTSIDE RECORDS SUMMARY | 2024-10-03 12:08 | XMS_ITS ---
Author Organization [facility] Address [address] [place] [phone] Care Team Providers Care Soda Drier Feeder Name Role Phone Myranda Hill Unavailable Unavail able ASHLEY MARTINEZ Unavailable [phone] Encounters Encounter Location Date Provider Diagnosis [facility] [address] [place], [place] [id number] 10/07/2023 ASHLEY MARTINEZ Plan Of Treatment No Information Progress Notes * Josh MARIE:[birth year] (69 yo F)Acc No.[id number]:10/07/2023 Progress Notes Patient: Josh FREEMAN Provider: Artis Martinez MD :1955 A ge:68 Y S ex:Female Date:10/07/2023 Address:[address] [place], [place] [id number] Subjective: * Chief Complaints: * * Medical History: Objective: * Vitals: Assessment: Plan: * Treatment: * Billing Information: * Visit Code: * Procedure Codes: * Electronic signature of ANETTE MARTINEZ MD on 10/03/2024 at 12:07 PM CDT Sign off status: Pending * Provider: Artis Martinez MD Date: 10/07/2023 Generated for Arron banda/Estee/eTransmitting on: 10/03/2024 12:07 PM CDT
--- OUTSIDE RECORDS SUMMARY | 2024-10-03 12:08 | XMS_ITS | Clinical Summary ---
Author Organization [facility] Care Team Providers Care Derrick Boat Operator Name Role Phone Unavailable Primary Care [...] Health Maintenance Due Date Last Done Comments Hepatitis C Virus (HCV) Screening 1955 TdaP Immunization 1955 Cologuard 2002 Colonoscopy 2002 Colorectal Cancer Screening 2002 Immunochemical Fecal Occult Blood 2002 Pneumococcal Immunization (5 0+ years) (1 of 1 - PCV) 08/22/2007 Zoster Immunization (1 of 2) 08/22/2007 SARS-COV-2 Immunization (1 - season) 2023 Influenza Immunization (#1) 2024 Respiratory Syncytial Virus (RSV) Immunization (Adult) (1 - 1-dose 75+ series) 2032 Hepatitis B Immunization Aged Out No longer eligible based on patient's age to complete this topic Human Papillomavirus (HPV) Immunization Aged Out No longer eligible b ased on patient's age to complete this topic Meningococcal Immunization (ACWY) Aged Out No longer eligible based on patient's age to complete this topic Rotavirus Immunization Aged Out No lo nger eligible based on patient's age to complete this topic
--- OUTSIDE RECORDS SUMMARY | 2024-10-03 12:08 | XMS_ITS | Encounter Summary ---
Author Organization [facility] [employer] [facility] Address [address] [place] [address] Phone Care Team Providers Care Clinical Appeals Auditor Name Role Phone Bin Almanzar MD Primary Care Provider Cristal Funes RN Unavailable [phone] Encounter Details Date Type Department Care Team (Late st Contact Info) Description 04/26/[address] 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
--- OUTSIDE RECORDS SUMMARY | 2024-10-03 12:08 | XMS_ITS | Encounter Summary ---
Author Organization [facility] [employer] [facility] Address [address] [place] [address] Phone Care Team Providers Care Rotary Peel Oven Tender Name Role Phone Bin Almanzar MD Primary Care Provider Cristal Funes RN Unavailable [phone] Encounter Details Date Type Department Care Team (Late st Contact Info) Description 07/29/2017 Orders Only [facility] ProviderHaven MD [address] [place] [address] Social History Tobacco Use Types Packs/Day Years Used Date Smoking Tobacco: Every Day Smokeless Tobacco: Never Alcohol Use Standard Drinks/Week Comments No 0 (1 standard drink = 0.6 oz pur e alcohol) Comments Unknown Sex and Gender Information Value Date Recorded Sex Assigned at Not on file 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
--- OUTSIDE RECORDS SUMMARY | 2024-10-03 12:08 | XMS_ITS | Clinical Summary ---
Author Organization [facility] Address [address] [place] [address] Care Team Providers Care Integrity Analyst Name Role Phone Chitra Almanzar MD [...] 24 Active insulin pump syringe (MiniMed Syringe Gerton) 3 mL misc 1 Device every 3 [...] 01/06/20 24 Active blood-glucose meter,continuous (Dexcom G7 Digital Forensic Analyst) misc 1 Device continuously To continuously monitor [...] hours as needed for pain 30 tablet 09/19/19 25 Active HYDROcodone-acetam inophen (NORCO) 5-325 mg per tabletIndications: Lower Back Pain Take 1 tablet by mouth every 6 (six) hours as needed for pain 30 tablet 08/23/19 25 025 Discontin ued(Reord er) Active Problems [...] basis. Assessment & Plan (04/07/2022 2:23 PM TOP COLLAR BASTER): Diagnosed at the age of 32. Complicated [...] basis. Assessment & Plan (03/25/2021 12:12 PM TOP COLLAR BASTER): Diagnosed at the age of 32. Complicated [...] basis. Assessment & Plan (03/13/2020 11:42 AM TOP COLLAR BASTER): Diagnosed at the age of 32. Complicated [...] Levothyroxine. Assessment & Plan (04/07/2022 2:05 PM TOP COLLAR BASTER): Patient is on levothyroxine 75 mcg - [...] visit. Assessment & Plan (03/25/2021 12:13 PM TOP COLLAR BASTER): Patient is on levothyroxine 50 mcg /day [...] visit. Assessment & Plan (03/13/2020 11:44 AM TOP COLLAR BASTER): Patient has been on levothyroxine 100 mcg [...] Encounters Date Type Department Care Team Description 09/20/2024 Telephone [facility] Primary Care at [address] [phone] Chitra Almanzar MD Medical Question/Miscellaneou s 09/20/2024 Orders Only [address] [address] Sima Glynn, RN 08/09/2024 Telephone [facility] Primary Care at [address] [phone] Chitra Almanzar MD Medical Question/Miscellaneou s 08/04/2024 Orders Only [address] [address] Rachel Ballard RN 08/04/2024 Orders Only [address] [address] Sima Glynn RN 08/04/2024 Orders Only [facility] Primary Care at [address] [phone] Chitra Almanzar MD Acute renal failure, unspecified acute renal failure type (Primary Dx) 08/03/2024 Orders Only [address] [address] Rachel Ballard, RN 08/03/2024 Orders Only [facility] Primary Care at [address] [phone] Chitra Almanzar MD Acute renal failure, unspecified acute renal failure type (Primary Dx) 08/02/2024 Orders Only [facility] Primary Care at [address] [phone] Chitra Almanzar MD Dehydration (Primary Dx) 08/01/2024 1:15 PM CDT Office Visit [facility] Primary Care at [address] [phone] Chitra Almanzar MD 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) (Primary Dx); Body mass index (BMI) less than 18.5; Diabetic neuropathy, type I diabetes mellitus (HCC); Gastroesophageal reflux disease without esophagitis; Gastroparesis due to DM (HCC); Stage 3b chronic kidney disease (HCC); Splenic infarct; Protein-calorie malnutrition, unspecified severity 08/01/2024 11:00 AM CDT Office Visit [facility] Diabetes Endocrine Care at [address] [phone] Lauren Chase DO Type 1 diabetes mellitus with hyperglycemia (HCC) (Primary Dx); Hypothyroidism, unspecified type; Acquired hypothyroidism 08/01/2024 Telephone [facility] Primary Care at [address] [phone] Chitra Almanzar MD 08/01/2024 Orders Only [facility] Primary Care at [address] [phone] Chitra Almanzar MD 07/26/2024 Results Follow-Up [facility] Care at [address] [phone] Lauren Chase DO Thyroid Function [place], T4, free 07/25/2024 8:05 PM CDT - 07/25/2024 11:59 PM CDT Hospital Encounter [address] [address] Hypothyroidism, unspecified type; Type 1 diabetes mellitus with hyperglycemia (HCC) Discharge Disposition: Discharge to home or self care 07/25/2024 8:03 PM CDT - 07/25/2024 11:59 PM CDT Hospital Encounter [address] [address] Hypertension associated with diabetes (HCC) Discharge Disposition: Discharge to home or self care 07/25/2024 9:00 AM CDT Lab [facility] Outpatient Lab at [address] [phone] Type 1 diabetes mellitus with hyperglycemia (HCC) (Primary Dx); Renal failure, chronic, stage 3 (moderate) (HCC) 07/24/2024 [place] [address] Laisha Dumont RPh from Last 3 Months Immunizations Immunization Administration [...] on file Legal Sex Female 11:55 PM TOP COLLAR BASTER Gender Identity Not on file Sexual Orientation [...] 5 season) 2023 10/30/2020, 10/09/2020 Influenza Vaccine (#1) 2024 Colon Cancer Screening-DNA Stool 01/06/2025 01/06/2022, 12/16/2018, 12/15/2018 Well Visit 65+ 01/17/2025 01/18/2024, 12/07, 12/30/2021, Additional history exists Hemoglobin A1C 01/25/2025 07/25/2024, 02/0 09/2024, 01/10/2024, Additional history exists Dilated Eye Exam 04/12/2025 04/12/2024, 01/2024, 12/03/2021, Additional history exists Albumin Creatinine Ratio, Urine 04/14/2025 04/14/2024, 03/30/2023, 12/24/2022, Additional history exists Lipid Panel 07/25/2025 07/25/2024, 020 09/2024, 01/10/2024, Additional history exists TSH Level 07/25/2025 07/25/2024, 2 , 04/14/2024, Additional history exists eGFR 07/25/2025 07/25/2024, 020 09/2024, 01/10/2024, Additional history exists Depression Screening 08/01/2025 08/01/2024, 05/01/2024, 01/18/2024, Additional history exists Fall Risk Assessment 08/01/2025 08/01/2024, 05/01/2024, 01/18/2024, Additional history exists Foot Exam 08/01/2025 08/01/2024, 2 06/2024, 01/18/2024, Additional history exists Hepatitis C Screening [...] CREATININE RATIO, URINE Routine 04/14/2024 8:23 AM TOP COLLAR BASTER Diabetic neuropathy, type I diabetes mellitus (HCC) [...] Read Routine (OP Routine) 03/10/2019 2:08 PM TOP COLLAR BASTER Disorder of bone, unspecified Osteoarthritis, unspecified osteoarthritis [...] LAB BLOOD ORDERABLES Fi nal Result BUD DIMAS [id number] [place] [address] * (ABNORMAL) Thyroid Function [place] (07/25/2024 11:00 AM CDT) TSH 6.81(H) 0.30 - 4.20 mcIUnit/mL Blood 07/25/2024 11:0 0 AM CDT 07/25/2024 8:16 PM CDT Lauren Chase DO LAB BLOOD ORDERABLES Final Result Performing Organization Address [facility] Co de Phone Number ANURAGJAZZY DIMAS [address] [place] [address] * (ABNORMAL) C-peptide (07/25/2024 11:00 AM CDT) C-peptide <0.02(L) 1.10 - 4.40 ng/mL Comment:Testing performed by : [facility], [address] [place] [address] Blood 07/25/2024 11:0 0 AM CDT 07/26/2024 10:27 AM CDT Lauren Chase DO LAB BLOOD ORDERABLES Final Result Performing Organization Address [facility] Co de Phone Number ANURAGJAZZY DIMAS [address] [place] [address] * (ABNORMAL) T4, free (07/25/2024 11:00 AM CDT) Free T4 0.85(L) 0.90 - 1.70 ng/dL Blood 07/25/2024 11:0 0 AM CDT 07/25/2024 8:16 PM CDT Lauren Chase DO LAB BLOOD ORDERABLES Final Result Performing Organization Address [facility] Phone Number BUD [phone] [place] [address] * (ABNORMAL) Hemoglobin A1c (07/25/2024 11:00 AM CDT) Hgb A1C 7.7(H) 4.0 - 5.6 % Estimated Average Glucose 174 mg/dL BUD DIMAS Comment: The ADA recommends reporting an estimated Average Glucose (eAG) with all Hemoglobin A1c results using the equation derived from a study of 507 normal and diabetic adults. Minority populations were underrepresented and children were not included. (Diabetes Care 31:3316-2057, 2008). The eAG is not equivalent to a fasting glucose. Blood 07/25/2024 11:0 0 AM CDT 07/25/2024 8:16 PM CDT Chitra Almanzar MD LAB BLOOD ORDERABLES Fi nal Result Performing Organization Address [facility] de Phone Number BUD JUDIE [address] [email or web address] [address] * Lipid panel (07/25/2024 11:00 AM CDT) [...] NCEP Expert Panel. Circulation 2004;110:227 3. Troy Antoine et al. LAURIE Cardiol. 2020 July 06;5(5):540-540. doi: 10.1001/[email or web address].2020.0013 Current Interpretive Data was last revised on 2023. Non-HDL Cholesterol 96 mg/dL CERNER Comment: Interpretive Data Ages < or = [...] revised on 2017. Chol/HDL ratio 2 CERNER Blood 07/25/2024 11:0 0 AM CDT 07/25/2024 8:16 PM CDT Narrative [facility] - 07/25/2024 9:54 PM CDT Has the patient been fasting for 8 hours or more?->Yes Chitra Almanzar MD LAB BLOOD ORDERABLES Fi nal Result BUD [address] Department [facility] [place], [place] [id number] * (ABNORMAL) Comprehensive metabolic panel (07/25/2024 11:00 AM CDT) Sodium 142 135 - 145 mmol/L Potassium, pl 4.4 3.3 - 4.9 mmol/L CERNER Chloride 104 97 - 110 mmol/L CERNER CO2 28 22 - 32 mmol/L [facility]ER Anion gap 10 2 - 15 mmol/L [facility]ER BUN 27(H) 6 - 25 mg/dL C[facility]ER Creatinine 1.43(H) 0.60 - 1.10 mg/dL CERNER Glucose 116 70 - 199 mg/dL [facility]ER Comment: Interpretive Data Fasting glucose >/= 126 [...] Calcium 10.0 8.5 - 10.3 mg/dL CERNER Bilirubin, total 0.2 0.1 - 1.2 mg/dL [...] ORDERABLES Fi nal Result Performing Organization Address [facility] de Phone Number BUD [phone] [address] [facility] [place] [address] * (ABNORMAL) Albumin Creatinine Ratio, Urine (04/14/2024 8:23 AM TOP COLLAR BASTER) Albumin Ur 954.1 mg/L Comment: Interpretive Data No reference range established. Current interpretive data was last revised 2018. Creatinine Ur 131.7 mg/dL [facility] Comment: Interpretive Data No reference range established. Current interpretive data was last revised 2018. Albumin Creatinine Ratio, Ur 724(H) 1 - 29 mg/g [facility] Urine 04/14/2024 8:23 AM TOP COLLAR BASTER 04/14/2024 8:23 PM TOP COLLAR BASTER Chitra Almanzar MD LAB [place] [address] [address] [facility] [place] [address] * (ABNORMAL) Diabetic Eye Exam (04/12/2024) us Generic External Data Provider HEALTH MAINTENANC E Final Result * Stool DNA - Cologuard (01/06/2022 7:55 AM CDT) Stool DNA - Cologuard Negative Negative [facility] (CLIA #:[id number]) Comment: NEGATIVE TEST RESULT. A negative Cologuard [...] screened with both Cologuard and colonoscopy. (Paola T. et al, N Engl J Med 2014;370(14):1502-3330) The normal value (reference range) for this assay is negative. COLOGUARD RE-SCREENING RECOMMENDATION: Periodic colorectal cancer screening is an important part of preventive healthcare for asymptomatic individuals at average risk for colorectal cancer. Following a negative Cologuard result, the [place] [employer] and U.S. Multi-Society Task Force screening guidelines recommend a Cologuard re-screening interval of 3 years. References: [place] [employer] Guideline for Colorectal Cancer Screening: https://www.cancer.org/cancer/jhsou-ccempq-tbwspw/gfysmkmdk-gwudbtvdw-preuchg/ac s-rec ommendations.html.; Danny HARMAN, Seymour BARBOUR, Tenisha RebolledoK, Colorectal Cancer Screening: Recommendations for Physicians and Patients from the U.S. Multi-Society Task Force on Colorectal Cancer Screening , Am J Gastroenterology 2017; 112:0856-2289. TEST DESCRIPTION: Composite algorithmic analysis of stool [...] screened with both Cologuard and colonoscopy. (Paola Contreras. et al, N Engl J Med 2014;370(14):6072-2492.) Cologuard may produce a false negative or false positive result (no colorectal cancer or precancerous polyp present at colonoscopy follow up). A negative Cologuard test result does not guarantee the absence of CRC or advanced adenoma (pre-cancer). The current Cologuard screening interval is every 3 years. ([place] [employer] and U.S. Multi-Society Task Force). Cologuard performance data in a 10,000 patient pivotal study using colonoscopy as the reference method can be accessed at the following location: www.[employer]mateFit/results. Additional description of the Cologuard test process, warnings and precautions can be found at www.Is That Oddrd.com. Stool 01/06/2022 7:55 AM CDT 01/07/2022 12:14 PM CDT us Chitra Almanzar MD LAB BODY FLUIDS AND STO OLS ORDERABLES Final Result [facility] (CLIA #:[id number]) [place] [address] * Screening Mammogram Bilateral W Roly (12/25/2020 [...] 1 or 2 Site (03/10/2019 2:08 PM TOP COLLAR BASTER) Anatomical Region Laterality Modality Body N/A Other 03/10/2019 4:05 PM TOP COLLAR BASTER Impressions 03/10/2019 4:06 PM TOP COLLAR BASTER Osteoporosis by WHO criteria. GENERAL GUIDELINES: According [...] Vince Garcia M.D. Narrative 03/10/2019 4:06 PM TOP COLLAR BASTER COMPLETION DATE: 03/10/2019 2:00 PM ORDERING HEALTHCARE PROVIDER: CHITRA ALMANZAR STUDY DESCRIPTION: DEXA AXIAL SKELETON BONE DENSITY 1 OR MORE SITES CLINICAL INDICATIONS: 63-year-old postmenopausal female, screening for osteoporosis. COMPARISON: None TECHNIQUE: Dual x-ray absorptiometry (DEXA) was performed using [employer] IMO system. Bone mineralization and T score are [...] therapy. Electronically signed by: Vince Garcia M.D. 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
--- OUTSIDE RECORDS SUMMARY | 2024-10-03 12:08 | XMS_ITS | Referral Summary ---
Author Organization [facility] Address [address] [place] [address] Care Team Providers Care Cloth Packer Name Role Phone Chitra Almanzar MD Primary Care Provider Encounters Date Type Department Care Team Description 09/20/2024 Telephone [facility] Primary Care at [address] [phone] Chitra Almanzar MD Medical Question/Miscellaneou s 09/20/2024 Orders Only [address] [address] Sima Glynn, RN 08/09/2024 Telephone [facility] Primary Care at [address] [phone] Chitra Almanzar MD Medical Question/Miscellaneou s 08/04/2024 Orders Only [address] [address] Rachel Ballard RN 08/04/2024 Orders Only [address] [address] Sima Glynn, RN 08/04/2024 Orders Only [facility] Primary Care at [address] [place] [phone] Chitra Almanzar MD Acute renal failure, unspecified acute renal failure type (Primary Dx) 08/03/2024 Orders Only [facility] [address] [place] [address] Rachel Ballard RN 08/03/2024 Orders Only [facility] Primary Care at [address] [address] Chitra Almanzar MD Acute renal failure, unspecified acute renal failure type (Primary Dx) 08/02/2024 Orders Only [facility] Primary Care at [address] [address] Chitra Almanzar MD Dehydration (Primary Dx) 08/01/2024 Telephone [facility] Primary Care at [address] [address] Chitra Almanzar MD 08/01/2024 Orders Only [facility] Primary Care at [address] [address] Chitra Almanzar MD 08/01/2024 1:15 PM CDT Office Visit [facility] Primary Care at [address] [address] Chitra Almanzar MD 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) (Primary Dx); Body mass index (BMI) less than 18.5; Diabetic neuropathy, type I diabetes mellitus (HCC); Gastroesophageal reflux disease without esophagitis; Gastroparesis due to DM (HCC); Stage 3b chronic kidney disease (HCC); Splenic infarct; Protein-calorie malnutrition, unspecified severity 08/01/2024 11:00 AM CDT Office Visit [facility] Diabetes Endocrine Care at [address] [phone] Lauren Chase DO Type 1 diabetes mellitus with hyperglycemia (HCC) (Primary Dx); Hypothyroidism, unspecified type; Acquired hypothyroidism 07/26/2024 Results Follow-Up [facility] Diabetes Endocrine [facility] at [place] [address] [place] [phone] Lauren Chase, Thyroid Function [place], T4, free 07/25/2024 8:05 PM CDT - 07/25/2024 11:59 PM CDT Hospital Encounter [address] [id number] Hypothyroidism, unspecified type; Type 1 diabetes mellitus with hyperglycemia (HCC) Discharge Disposition: Discharge to home or self care 07/25/2024 8:03 PM CDT - 07/25/2024 11:59 PM CDT Hospital Encounter [address] [address] Hypertension associated with diabetes (HCC) Discharge Disposition: Discharge to home or self care 07/25/2024 9:00 AM CDT Lab [facility] Outpatient Lab at [address] [address] Type 1 diabetes mellitus with hyperglycemia (HCC) (Primary Dx); Renal failure, chronic, stage 3 (moderate) (HCC) 07/24/2024 ACO Clinical Pharmacist [facility] Organization [address] [place] [address] Laisha Dumont RPh from Last 3 Months [...] 24 Active insulin pump syringe (MiniMed Syringe [place]) 3 mL misc 1 Device every 3 (three) days 30 each 3 10/08/19 24 Active cyanocobalamin (Vitamin B-12) 1,000 mcg/mL injection ADMINISTER 1 ML(1000 MCG) IN THE MUSCLE EVERY 30 DAYS DIRECTED 3 mL 10/22/19 Active insulin aspart (NovoLOG) 100 unit/mL vial for injectionIndicatio ns:Type 1 diabetes mellitus with hyperglycemia (HCC) INJECT 50 UNITS VIA INSULIN PUMP EVERY DAY 50 mL 01/06/20 24 Active blood-glucose meter,continuous (Dexcom G7 Formula Room Worker) misc 1 Device continuously To continuously monitor [...] basis. Assessment & Plan (04/07/2022 2:23 PM RN DOCUMENT IMPROVEMENT): Diagnosed at the age of 32. Complicated [...] basis. Assessment & Plan (03/25/2021 12:12 PM RN DOCUMENT IMPROVEMENT): Diagnosed at the age of 32. Complicated [...] basis. Assessment & Plan (03/13/2020 11:42 AM RN DOCUMENT IMPROVEMENT): Diagnosed at the age of 32. Complicated [...] Levothyroxine. Assessment & Plan (04/07/2022 2:05 PM RN DOCUMENT IMPROVEMENT): Patient is on levothyroxine 75 mcg - [...] visit. Assessment & Plan (03/25/2021 12:13 PM RN DOCUMENT IMPROVEMENT): Patient is on levothyroxine 50 mcg /day [...] visit. Assessment & Plan (03/13/2020 11:44 AM RN DOCUMENT IMPROVEMENT): Patient has been on levothyroxine 100 mcg [...] on file Legal Sex Female 11:55 PM RN DOCUMENT IMPROVEMENT Gender Identity Not on file Sexual Orientation [...] CREATININE RATIO, URINE Routine 04/14/2024 8:23 AM RN DOCUMENT IMPROVEMENT Diabetic neuropathy, type I diabetes mellitus (HCC) [...] Read Routine (OP Routine) 03/10/2019 2:08 PM RN DOCUMENT IMPROVEMENT Disorder of bone, unspecified Osteoarthritis, unspecified osteoarthritis [...] AM CDT 07/25/2024 8:16 PM CDT us Chitra Almanzar MD LAB BLOOD ORDERABLES Fi nal Result BUD JUDIE [address] [address] [place] [address] * (ABNORMAL) Thyroid Function Ventura (07/25/2024 11:00 AM CDT) TSH 6.81(H) 0.30 - 4.20 mcIUnit/mL Blood 07/25/2024 11:0 0 AM CDT 07/25/2024 8:16 PM CDT us Lauren Chase DO LAB [place]LO[place] [address] [address] [place] [address] * (ABNORMAL) C-peptide (07/25/2024 11:00 AM CDT) C-peptide <0.02(L) 1.10 - 4.40 ng/mL Comment:Testing performed by : [facility], [address] [place]., [address] Blood 07/25/2024 11:0 0 AM CDT 07/26/2024 10:27 AM CDT Lauren Chase DO LAB BLOOD ORDERABLES Final Result Performing Organization Address City/[facility]/ZIP Co de Phone Number BUD DIMAS [address] [address] [place] [place] [address] * (ABNORMAL) T4, free (07/25/2024 11:00 AM CDT) Free T4 0.85(L) 0.90 - 1.70 ng/dL Blood 07/25/2024 11:0 0 AM CDT 07/25/2024 8:16 PM CDT Lauren Chase DO LAB BLOOD ORDERABLES Final Result Performing Organization Address [facility] de Phone Number BUD DIMAS [address] [address] [place] [address] * (ABNORMAL) Hemoglobin A1c (07/25/2024 11:00 AM CDT) Hgb A1C 7.7(H) 4.0 - 5.6 % Estimated Average Glucose 174 mg/dL BUD DIMAS Comment: The ADA recommends reporting an estimated Average Glucose (eAG) with all Hemoglobin A1c results using the equation derived from a study of 507 normal and diabetic adults. Minority populations were underrepresented and children were not included. (Diabetes Care 31:1308-0370, 2008). The eAG is not equivalent to a fasting glucose. Blood 07/25/2024 11:0 0 AM CDT 07/25/2024 8:16 PM CDT Chitra Almanzar MD LAB BLOOD ORDERABLES Fi nal Result Performing Organization Address City/[facility]/ZIP Co de Phone Number BUD DIMAS [address] [address] [place] [address] * Lipid panel (07/25/2024 11:00 AM CDT) [...] Antoine et al. LAURIE Cardiol. 2020 July 06;5(5):540-548. [...] last revised on 2017. Chol/HDL ratio 2 BUD DIMAS Blood 07/25/2024 11:0 0 AM CDT 07/25/2024 8:16 PM CDT Narrative BUD DIMAS - 07/25/2024 9:54 PM CDT Has the patient been fasting for 8 hours or more?->Yes us Chitra Almanzar MD LAB BLOOD ORDERABLES Fi nal Result [address]UD [address]IMAS [address] [address] Department [place] [address] * (ABNORMAL) Comprehensive metabolic panel [...] classification and Diagnosis of Diabetes Diabetes Care 202; 46: S19-S40. Current interpretive data was last [...] 9:54 PM CDT Has the patient fasted?->Yes us Chitra Almanzar MD LAB BLOOD ORDERABLES Fi nal Result BUD DIMAS [address] [address] Department [place] [address] * (ABNORMAL) Albumin Creatinine Ratio, Urine (04/14/2024 8:23 AM RN DOCUMENT IMPROVEMENT) Albumin Ur 954.1 mg/L Comment: Interpretive Data No reference range established. Current interpretive data was last revised 2018. Creatinine Ur 131.7 mg/dL [facility] Comment: Interpretive Data No reference range established. Current interpretive data was last revised 2018. Albumin Creatinine Ratio, Ur 724(H) 1 - 29 mg/g [facility] Urine 04/14/2024 8:23 AM RN DOCUMENT IMPROVEMENT 04/14/2024 8:23 PM RN DOCUMENT IMPROVEMENT Chitra Almanzar MD LAB URINE ORDERABLES Fi nal Result [facility] [address] [address] Department [place] [address] * (ABNORMAL) Diabetic Eye Exam (04/12/2024) us Generic External Data Provider HEALTH MAINTENANC E Final Result * Stool DNA - Cologuard (01/06/2022 7:55 AM CDT) Stool DNA - Cologuard Negative Negative [employer] (CLIA #:[id number]) Comment: NEGATIVE TEST RESULT. A negative Cologuard [...] (Paola Santos al, N Engl J Med 2014;370(14):3522-5853) The normal value (reference range) for this assay is negative. COLOGUARD RE-SCREENING RECOMMENDATION: Periodic colorectal cancer screening is an important part of preventive healthcare for asymptomatic individuals at average risk for colorectal cancer. Following a negative Cologuard result, the [place] Cancer Society and U.S. Multi-Society Task Force screening guidelines recommend a Cologuard re-screening interval of 3 years. References: [place] [employer] Guideline for Colorectal Cancer Screening: https://www.cancer.org/cancer/fdnsq-nvotnr-rjemyz/abavhpiyb-mvoowznvu-hhocsfk/ac s-rec ommendations.html.; Danny HARMAN, Seymour BARBOUR, Tenisha DE LUNA, Colorectal Cancer Screening: Recommendations for Physicians and Patients from the U.S. Multi-Society Task Force on Colorectal Cancer Screening , Am J Gastroenterology 2017; 112:9766-3778. TEST DESCRIPTION: Composite algorithmic analysis of stool [...] Contreras. et al, N Engl J Med 2014;370(14):7615-6846.) Cologuard may produce a false negative or false positive result (no colorectal cancer or precancerous polyp present at colonoscopy follow up). A negative Cologuard test result does not guarantee the absence of CRC or advanced adenoma (pre-cancer). The current Cologuard screening interval is every 3 years. ([place] Cancer Society and U.S. Multi-Society Task Force). Cologuard performance data in a 10,000 patient pivotal study using colonoscopy as the reference method can be accessed at the following location: www.[employer]/results. Additional description of the Cologuard test process, warnings and precautions can be found at www.colOilAndGasRecruiteruard.com. Stool 01/06/2022 7:55 AM CDT 01/07/2022 12:14 PM CDT Chitra Almanzar MD LAB BODY FLUIDS AND STO OLS ORDERABLES Final Result [facility] (CLIA #:[id number]) [place] [address] * Screening Mammogram Bilateral W Roly (12/25/2020 [...] 1 or 2 Site (03/10/2019 2:08 PM RN DOCUMENT IMPROVEMENT) Anatomical Region Laterality Modality Body N/A Other 03/10/2019 4:05 PM RN DOCUMENT IMPROVEMENT Impressions 03/10/2019 4:06 PM RN DOCUMENT IMPROVEMENT Osteoporosis by WHO criteria. GENERAL GUIDELINES: According [...] receiving long-term steroid therapy. Electronically signed by: Michele Tarango 03/10/2019 4:06 PM RN DOCUMENT IMPROVEMENT COMPLETION DATE: 03/10/2019 2:00 PM ORDERING HEALTHCARE [...] therapy. Electronically signed by: Vince Garcia M.D. 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
[2024-10-03 12:23] VITALS: BP 129/76; PULSE 89; RESP 20; TEMP 36.6; O2SAT 100
--- NOTE | 2024-10-03 14:12 | PC.NURSE ---
pt approached intake desk and states how much longer is this going to take. I've been here for 2 hours now this RN explained to pt that unfortunately we cannot give out wait times, but we are working on getting patients back as soon as we can. explained to pt that we do have a provider that is pulling patients back to the triage bay to get things started. pt states well I've been here forever and my blood sugar is tanking offered pt a beverage or food. states That is not a good idea, I guess I will just go home and since nobody will see me. attempted to explain to pt again that we are doing everything we can to get patients back in a timely manner and that one of our providers will be calling her back to see her. pt kept interrupting this RN and states No I am just leaving! pt then proceeds to throw urine sample onto the desk and proceeds to ambulate out of the ED with steady gait.
--- OUTSIDE RECORDS SUMMARY | 2024-10-03 14:21 | XMS_ITS | Encounter Summary ---
Author Organization [facility] Healthcare Address [address] [place] [address] Care Team Providers Care Security Management Specialist Name Role Phone Bin Almanzar MD Primary Care Provider Reason for Visit * Reason Onset Date Comments Medical Question/Miscellaneous 09/20/2024 Encounter Details Date Type Department Care Team (Late st Contact Info) Description 09/20/2024 Telephone [facility] Primary Care at [address] [place] [address] Bin Almanzar MD [address] [place] [address] [address] [place] [address] Medical Question/Miscellaneous Social History Tobacco [...] on file Legal Sex Female 11:55 PM DRAIN CLEANER PLUMBER Gender Identity Not on file Sexual Orientation [...] it was supposed to be set at [place] or not. Please advise Does message need to be routed? 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
--- OUTSIDE RECORDS SUMMARY | 2024-10-03 14:21 | XMS_ITS | Clinical Summary ---
[facility] Address [address] [facility] [place] [address] Care Team Providers Care Data Conversion Developer Name Role Phone Bin Almanzar MD Primary Care Provider [phone] Allergies Active Allergy Reactions Criticality Noted Date [...] on file Legal Sex Female 1:22 PM SPEECH PATHOLOGIST ASSISTANT Gender Identity Not on file Sexual Orientation [...] A AND B GENERIC PAYOR Care Teams Data Conversion Developer Relationship Specialty Start Date End Date Bin Almanzar MD [address] [facility] [place] [address] PCP - General Internal Medicine 02/16/20
--- OUTSIDE RECORDS SUMMARY | 2024-10-03 14:22 | XMS_ITS | Clinical Summary ---
Author Organization [facility] Address [address] [place] [address] Care Team Providers Care Lead Burner Name Role Phone Unavailable Primary Care Provider [...]
--- OUTSIDE RECORDS SUMMARY | 2024-10-03 14:22 | XMS_ITS | Clinical Summary ---
Author Organization [facility] [employer] [facility] Address [address] [address] Phone Care Team Providers Care Inkjet Operator Name Role Phone YohanBin Primary Care Provider [phone] Allergies Active Allergy Reactions Criticality Noted Date [...] Splenic hemorrhage 04/13/2021 Overview (04/13/2021): FEBRUARY 2020- [facility]- HYPERCOAG WORK-UP AND CTA PLANNED[facility] Acquired thrombophilia 04/13/202104/14 Overview (04/13/2021): [...] Comments Blood Pressure 100/68 04/14/2021 11:47 AM KETTLE FRY COOK OPERATOR Pulse 76 04/14/2021 11:47 AM KETTLE FRY COOK OPERATOR Temperature 36.8 C (98.2 F) 04/14/2021 11:47 AM KETTLE FRY COOK OPERATOR Respiratory Rate - - Oxygen Saturation 98% 04/14/2021 11:47 AM KETTLE FRY COOK OPERATOR Inhaled Oxygen Concentration - - Weight 47.2 kg (104 lb) 04/14/2021 11:47 AM KETTLE FRY COOK OPERATOR Height 161.5 cm (5' 3.6) 04/14/2021 11:47 AM CS T Body Mass Index 18.08 04/14/2021 11:47 AM KETTLE FRY COOK OPERATOR Plan of Treatment Health Maintenance Due Date [...] patient's age to complete this topic Insurance [employer] Program Care Teams Inkjet Operator Relationship Specialty Start Date End Date Bin Almanzar [address] [place] [address] [address] [place], [place] [id number] PCP - General Internal Medicine 04/14/21
--- OUTSIDE RECORDS SUMMARY | 2024-10-03 14:23 | XMS_ITS | Encounter Summary ---
Author Organization [facility] [employer] [facility] Address [address] [place] [address] Phone Care Team Providers Care Rug Renovator Name Role Phone Bin Almanzar MD Primary Care Provider Cristal Funes RN Unavailable [phone] Encounter Details Date Type Department Care Team (Late st Contact Info) Description 07/29/2017 Orders Only [facility] ProviderHaven MD [address] [place] [address] Social History Tobacco Use Types Packs/Day Years Used Date Smoking Tobacco: Every Day Smokeless Tobacco: Never Alcohol Use Standard Drinks/Week Comments No 0 (1 standard drink = 0.6 oz pur e alcohol) Comments Unknown Sex and Gender Information Value Date Recorded Sex Assigned at Not on file Legal Sex Female 11:55 PM CAMPAIGN MANAGEMENT SENIOR MANAGER Gender Identity Not on file Sexual Orientation [...] documented as of this encounter Care Teams Rug Renovator Relationship Specialty Start Date End Date Bin Almanzar MD PCP - General 06/05/16 Cristal Funes, RN [address] [place] [address] Icer Machine 06/17/17 08/02/17 documented as of this encounter
--- OUTSIDE RECORDS SUMMARY | 2024-10-03 14:23 | XMS_ITS | Encounter Summary ---
Author Organization [facility] [employer] [facility] Address [address] [place] [address] Phone Care Team Providers Care Concrete Block Molder Name Role Phone Bin Almanzar MD Primary Care Provider Cristal Funes RN Unavailable [phone] Encounter Details Date Type Department Care Team (Late st Contact Info) Description 04/26/2017 Orders Only [facility] ProviderHaven MD [address] [place] [address] Social History Tobacco Use Types Packs/Day Years Used Date Smoking Tobacco: Every Day Smokeless Tobacco: Never Alcohol Use Standard Drinks/Week Comments No 0 (1 standard drink = 0.6 oz pur e alcohol) Comments Unknown Sex and Gender Information Value Date Recorded Sex Assigned at Not on file Legal Sex Female 11:55 PM LEARNING AND DEVELOPMENT SPECIALIST Gender Identity Not on file Sexual Orientation Not on file documented as of this encounter Plan of Treatment Not on file documented as of this encounter Procedures Procedure Name Priority Date/Time Associated Diagnosis Comments DISCHARGE LABORATORY CUMULATIVE REPORT 04/26/2017 12:00 AM LEARNING AND DEVELOPMENT SPECIALIST documented in this encounter Results * DISCHARGE LABORATORY CUMULATIVE REPORT (04/26/2017 12:00 AM LEARNING AND DEVELOPMENT SPECIALIST) Narrative 04/26/2017 12:00 AM LEARNING AND DEVELOPMENT SPECIALIST Ordered by an unspecified provider. 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
--- OUTSIDE RECORDS SUMMARY | 2024-10-03 14:23 | XMS_ITS | Clinical Summary ---
Author Organization [facility] Address [address] [place] [address] Care Team Providers Care Lunchroom Supervisor Name Role Phone Chitra Almanzar MD Primary [...] 24 Active insulin pump syringe (MiniMed Syringe [place]) 3 mL misc 1 Device every 3 [...] 01/06/20 24 Active blood-glucose meter,continuous (Dexcom G7 Product Development Technician) misc 1 Device continuously To continuously monitor [...] basis. Assessment & Plan (04/07/2022 2:23 PM PCB DESIGNER): Diagnosed at the age of 32. Complicated [...] basis. Assessment & Plan (03/25/2021 12:12 PM PCB DESIGNER): Diagnosed at the age of 32. Complicated [...] basis. Assessment & Plan (03/13/2020 11:42 AM PCB DESIGNER): Diagnosed at the age of 32. Complicated [...] Levothyroxine. Assessment & Plan (04/07/2022 2:05 PM PCB DESIGNER): Patient is on levothyroxine 75 mcg - [...] visit. Assessment & Plan (03/25/2021 12:13 PM PCB DESIGNER): Patient is on levothyroxine 50 mcg /day [...] visit. Assessment & Plan (03/13/2020 11:44 AM PCB DESIGNER): Patient has been on levothyroxine 100 mcg [...] Type Department Care Team Description 09/20/2024 Telephone [facility] Primary Care at [address] [address] Chitra Almanzar MD Medical Question/Miscellaneou s 09/20/2024 Orders Only [address] [address] Sima Glynn, RN 08/09/2024 Telephone [facility] Primary Care at [address] [phone] Chitra Almanzar MD Medical Question/Miscellaneou s 08/04/2024 Orders Only [address] [address] Rachel Ballard RN 08/04/2024 Orders Only [address] [address] Sima Glynn RN 08/04/2024 Orders Only [facility] Primary Care at [address] [address] Chirta Almanzar MD Acute renal failure, unspecified acute renal failure type (Primary Dx) 08/03/2024 Orders Only [address] [address] Rachel Ballard, RN 08/03/2024 Orders Only [facility] Primary Care at [address] [address] Chitra Almanzar MD Acute renal failure, unspecified acute renal failure type (Primary Dx) 08/02/2024 Orders Only [facility] Primary Care at [address] [address] Chitra Almanzar MD Dehydration (Primary Dx) 08/01/2024 1:15 PM CDT Office Visit [facility] Primary Care at [address] [address] Chitra Almanzar MD Diabetic nephropathy associated with [...] [facility] [address] [address] Lauren Chase DO Type 1 diabetes mellitus with hyperglycemia (HCC) (Primary Dx); Hypothyroidism, unspecified type; Acquired hypothyroidism 08/01/2024 Telephone [facility] Primary Care at [address] [address] Chitra Almanzar MD 08/01/2024 Orders Only [facility] Primary Care at [address] [address] Chitra Almanzar MD 07/26/2024 Results Follow-Up [facility] Diabetes Endocrine Care at [address] [phone] Lauren Chase DO Thyroid Function [place], T4, free 07/25/2024 8:05 PM CDT - 07/25/2024 11:59 PM CDT Hospital Encounter [address] [address] Hypothyroidism, unspecified type; Type 1 diabetes mellitus with hyperglycemia (HCC) Discharge Disposition: Discharge to home or self care 07/25/2024 8:03 PM CDT - 07/25/2024 11:59 PM CDT Hospital Encounter [address] [address] Hypertension associated with diabetes (HCC) Discharge Disposition: Discharge to home or self care 07/25/2024 9:00 AM CDT Lab [facility] Outpatient Lab at [address] [address] Type 1 diabetes mellitus with hyperglycemia (HCC) (Primary Dx); Renal failure, chronic, stage 3 (moderate) (HCC) 07/24/2024 [place] [address] Laisha Dumont RPh from Last 3 Months [...] on file Legal Sex Female 11:55 PM PCB DESIGNER Gender Identity Not on file Sexual Orientation [...] CREATININE RATIO, URINE Routine 04/14/2024 8:23 AM PCB DESIGNER Diabetic neuropathy, type I diabetes mellitus (HCC) [...] Read Routine (OP Routine) 03/10/2019 2:08 PM PCB DESIGNER Disorder of bone, unspecified Osteoarthritis, unspecified osteoarthritis [...] BLOOD ORDERABLES Fi nal Result BUD DIMAS [id number] Department [place] [address] * (ABNORMAL) Thyroid Function Hagaman (07/25/2024 11:00 AM CDT) TSH 6.81(H) 0.30 - 4.20 mcIUnit/mL Blood 07/25/2024 11:0 0 AM CDT 07/25/2024 8:16 PM CDT Lauren Chase DO LAB BLOOD ORDERABLES Final Result Performing Organization Address [facility] Co de Phone Number ANURAGJAZZY DIMAS [address] Department [place] [address] * (ABNORMAL) C-peptide (07/25/2024 11:00 AM CDT) C-peptide <0.02(L) 1.10 - 4.40 ng/mL Comment:Testing performed by : [facility], [address] [place]., [address] Blood 07/25/2024 11:0 0 AM CDT 07/26/2024 10:27 AM CDT Lauren Chase DO LAB BLOOD ORDERABLES Final Result Performing Organization Address [facility] Co de Phone Number ANURAGJAZZY DIMAS [address] Department [place] [address] * (ABNORMAL) T4, free (07/25/2024 11:00 AM CDT) Free T4 0.85(L) 0.90 - 1.70 ng/dL Blood 07/25/2024 11:0 0 AM CDT 07/25/2024 8:16 PM CDT Lauren Chase DO LAB BLOOD ORDERABLES Final Result Performing Organization Address [facility] Phone Number BUD [address] [address] [place] [address] * (ABNORMAL) Hemoglobin A1c (07/25/2024 11:00 AM CDT) Hgb A1C 7.7(H) 4.0 - 5.6 % Estimated Average Glucose 174 mg/dL BUD DIMAS Comment: The ADA recommends reporting an estimated Average Glucose (eAG) with all Hemoglobin A1c results using the equation derived from a study of 507 normal and diabetic adults. Minority populations were underrepresented and children were not included. (Diabetes Care 31:5241-8357, 2008). The eAG is not equivalent to a fasting glucose. Blood 07/25/2024 11:0 0 AM CDT 07/25/2024 8:16 PM CDT Chitra Almanzar MD LAB BLOOD ORDERABLES Fi nal Result Performing Organization Address [facility] de Phone Number BUD JUDIE [id number] [place] [address] * Lipid panel (07/25/2024 11:00 AM CDT) [...] Antoine et al. LAURIE Cardiol. 2020 July 06;5(5):540-546. doi: [email or web address] Current Interpretive Data was last [...] AM CDT 07/25/2024 8:16 PM CDT [facility]ative [facility] - 07/25/2024 9:54 PM CDT Has the patient been fasting for 8 hours or more?->Yes Chitra Almanzar MD LAB BLOOD ORDERABLES Fi nal Result BUD [id number] [address] Department of [facility] [place], [place] [id number] * (ABNORMAL) Comprehensive metabolic panel (07/25/2024 11:00 [...] nal Result Performing Organization Address [facility] de Phone Number BUD [address] [address] Department [place] [address] * (ABNORMAL) Albumin Creatinine Ratio, Urine (04/14/2024 8:23 AM PCB DESIGNER) Albumin Ur 954.1 mg/L Comment: Interpretive Data No reference range established. Current interpretive data was last revised 2018. Creatinine Ur 131.7 mg/dL [facility] Comment: Interpretive Data No reference range established. Current interpretive data was last revised 2018. Albumin Creatinine Ratio, Ur 724(H) 1 - 29 mg/g [facility] Urine 04/14/2024 8:23 AM PCB DESIGNER 04/14/2024 8:23 PM PCB DESIGNER Chitra Almanzar MD LAB URINE [place] [id number] [address] [place] [address] * (ABNORMAL) Diabetic Eye Exam (04/12/2024) us Generic External Data Provider HEALTH MAINTENANC E Final Result * Stool DNA - Cologuard (01/06/2022 7:55 AM CDT) Stool DNA - Cologuard Negative Negative [employer] (CLIA #:[id number]) Comment: NEGATIVE TEST RESULT. A negative Cologuard [...] T. et al, N Engl J Med 2014;370(14):4086-4793) The normal value (reference range) for this assay is negative. COLOGUARD RE-SCREENING RECOMMENDATION: Periodic colorectal cancer screening is an important part of preventive healthcare for asymptomatic individuals at average risk for colorectal cancer. Following a negative Cologuard result, the [place] Cancer Society and U.S. Multi-Society Task Force screening guidelines recommend a Cologuard re-screening interval of 3 years. References: [place] [employer] Guideline for Colorectal Cancer Screening: https://www.cancer.org/cancer/xbttk-jfwghb-fjcqwl/wjmwnsbal-nxgcmzzne-wruvkgd/ac s-rec ommendations.html.; Danny HARMAN, Seymour BARBOUR, Tenisha RebolledoK, Colorectal Cancer Screening: Recommendations for Physicians and Patients from the U.S. Multi-Society Task Force on Colorectal Cancer Screening , Am J Gastroenterology 2017; 112:3685-4223. TEST DESCRIPTION: Composite algorithmic analysis of stool [...] Contreras. et al, N Engl J Med 2014;370(14):7084-7896.) Cologuard may produce a false negative or false positive result (no colorectal cancer or precancerous polyp present at colonoscopy follow up). A negative Cologuard test result does not guarantee the absence of CRC or advanced adenoma (pre-cancer). The current Cologuard screening interval is every 3 years. ([place] [employer] and U.S. Multi-Society Task Force). Cologuard performance data in a 10,000 patient pivotal study using colonoscopy as the reference method can be accessed at the following location: www.[employer]/results. Additional description of the Cologuard test process, warnings and precautions can be found at www.[employer].com. Stool 01/06/2022 7:55 AM CDT 01/07/2022 12:14 PM CDT us Chitra Almanzar MD LAB BODY FLUIDS AND STO OLS ORDERABLES Final Result [employer] (CLIA #:[id number]) [place] [address] * Screening Mammogram Bilateral W Roly (12/25/2020 [...] 1 or 2 Site (03/10/2019 2:08 PM PCB DESIGNER) Anatomical Region Laterality Modality Body N/A Other 03/10/2019 4:05 PM PCB DESIGNER Impressions 03/10/2019 4:06 PM PCB DESIGNER Osteoporosis by WHO criteria. GENERAL GUIDELINES: According [...] Vince Garcia M.D. Narrative 03/10/2019 4:06 PM PCB DESIGNER COMPLETION DATE: 03/10/2019 2:00 PM ORDERING HEALTHCARE PROVIDER: CHITRA ALMANZAR STUDY DESCRIPTION: DEXA AXIAL SKELETON BONE DENSITY 1 OR MORE SITES CLINICAL INDICATIONS: 63-year-old postmenopausal female, screening for osteoporosis. COMPARISON: None TECHNIQUE: Dual x-ray absorptiometry (DEXA) was performed using [employer] system. 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
--- OUTSIDE RECORDS SUMMARY | 2024-10-03 14:23 | XMS_ITS | Encounter Summary ---
Author Organization [facility] Healthcare Address [address] [place] [address] Care Team Providers Care Class A Truck Driver Name Role Phone Bin Almanzar MD Primary Care Provider Encounter Details Date Type Department Care Team (Late st Contact Info) Description 09/14/2023 Telephone [facility] Primary Care at [address] [place] [address] Bin Almanzar MD [address] [place] [address] [address] [place] [address] Social History Tobacco Use Types [...] on file Legal Sex Female 11:55 PM WIC SITE COORDINATOR Gender Identity Not on file Sexual Orientation Not on file documented as of this encounter Plan of Treatment Not on file documented as of this encounter Visit Diagnoses Not on filedocumented in this encounter Additional Health Concerns Infection Onset Date Last Indicated Resolved Time 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
--- OUTSIDE RECORDS SUMMARY | 2024-10-03 14:23 | XMS_ITS | Encounter Summary ---
Author Organization [facility] Healthcare Address [address] [place] [address] Care Team Providers Care And Rescue Fire Fighter Crash Fire Name Role Phone Bin Almanzar MD Primary Care Provider Reason for Visit * Reason Onset Date Comments Scheduling Appointments 12/24/2020 confirmi ng mamm appt- no answer Encounter Details Date Type Department Care Team (Late st Contact Info) Description 12/24/2020 Telephone 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
--- OUTSIDE RECORDS SUMMARY | 2024-10-03 14:24 | XMS_ITS | Clinical Summary ---
Author Organization [facility] Address [address] [place] [address] Care Team Providers Care Termite Inspector Name Role Phone Unavailable Primary Care Provider Unavailabl e Source Comments [facility],non-owned Affiliates and Associated Physician Practices is amultiple site organization consisting of ambulatory clinics and hospital sitesin [place], [place], [place] and [place]. This disclosure is being madepursuant to the Care Everywhere program and may not contain all information available regarding this patient. Last updated 17.[facility] Allergies No known active allergies Medications * [...]
--- OUTSIDE RECORDS SUMMARY | 2024-10-03 14:24 | XMS_ITS | Clinical Summary ---
Author Organization [facility] Care Team Providers Care [employer]ish Network Installer Name Role Phone Unavailable Primary Care Provider [...]
--- OUTSIDE RECORDS SUMMARY | 2024-10-03 14:24 | XMS_ITS | Referral Summary ---
Author Organization [facility] Address [address] [place] [address] Care Team Providers Care Heel Shaver Name Role Phone Chitra Almanzar MD Primary Care Provider Encounters Date Type Department Care Team Description 09/20/2024 Telephone [facility] Primary Care at [address] [phone] Chitra Almanzar MD Medical Question/Miscellaneou s 09/20/2024 Orders Only [address] [address] Sima Glynn, RN 08/09/2024 Telephone [facility] Primary Care at [address] [phone] Chitra Almanzar MD Medical Question/Miscellaneou s 08/04/2024 Orders Only [address] [address] Rachel Ballard RN 08/04/2024 Orders Only [address] [address] Sima Glynn, RN 08/04/2024 Orders Only [facility] Primary Care at [address] [place] [phone] Chitra Almanzar MD Acute renal failure, unspecified acute renal failure type (Primary Dx) 08/03/2024 Orders Only [facility] [address] [place] [address] Rachel Ballard RN 08/03/2024 Orders Only [facility] Primary Care at [address] [phone] Chitra Almanzar MD Acute renal failure, unspecified acute renal failure type (Primary Dx) 08/02/2024 Orders Only [facility] Primary Care at [address] [phone] Chitra Almanzar MD Dehydration (Primary Dx) 08/01/2024 Telephone [facility] Primary Care at [address] [phone] Chitra Almanzar MD 08/01/2024 Orders Only [facility] Primary Care at [address] [phone] Chitra Almanzar MD 08/01/2024 1:15 PM CDT Office Visit [facility] Primary Care at [address] [phone] Chitra Almanzar MD 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) (Primary Dx); Body mass index (BMI) less than 18.5; Diabetic neuropathy, type I diabetes mellitus (HCC); Gastroesophageal reflux disease without esophagitis; Gastroparesis due to DM (HCC); Stage 3b chronic kidney disease (HCC); Splenic infarct; Protein-calorie malnutrition, unspecified severity 08/01/2024 11:00 AM CDT Office Visit [facility] Diabetes Endocrine Care at [address] [phone] Lauren Chase DO Type 1 diabetes mellitus with hyperglycemia (HCC) (Primary Dx); Hypothyroidism, unspecified type; Acquired hypothyroidism 07/26/2024 Results Follow-Up [facility] Endocrine Care at [place] [address] [place] [phone] Lauren Chase, Thyroid Function [place], T4, free 07/25/2024 8:05 PM CDT - 07/25/2024 11:59 PM CDT Hospital Encounter [address] [id number] Hypothyroidism, unspecified type; Type 1 diabetes mellitus with hyperglycemia (HCC) Discharge Disposition: Discharge to home or self care 07/25/2024 8:03 PM CDT - 07/25/2024 11:59 PM CDT Hospital Encounter [address] [address] Hypertension associated with diabetes (HCC) Discharge Disposition: Discharge to home or self care 07/25/2024 9:00 AM CDT Lab [facility] Outpatient Lab at [address] [phone] Type 1 diabetes mellitus with hyperglycemia (HCC) (Primary Dx); Renal failure, chronic, stage 3 (moderate) (HCC) 07/24/2024 ACO Clinical Pharmacist [facility] Accountable Care Organization [address] [place] [id number] Laisha Dumont RPh from Last 3 [...] 24 Active insulin pump syringe (MiniMed Syringe [place]) 3 mL misc 1 Device every 3 [...] 01/06/20 24 Active blood-glucose meter,continuous (Dexcom G7 Feeder Catcher Tobacco) misc 1 Device continuously To continuously monitor [...] basis. Assessment & Plan (04/07/2022 2:23 PM AGRICULTURAL CHEMIST): Diagnosed at the age of 32. Complicated [...] basis. Assessment & Plan (03/25/2021 12:12 PM AGRICULTURAL CHEMIST): Diagnosed at the age of 32. Complicated [...] basis. Assessment & Plan (03/13/2020 11:42 AM AGRICULTURAL CHEMIST): Diagnosed at the age of 32. Complicated [...] Levothyroxine. Assessment & Plan (04/07/2022 2:05 PM AGRICULTURAL CHEMIST): Patient is on levothyroxine 75 mcg - [...] visit. Assessment & Plan (03/25/2021 12:13 PM AGRICULTURAL CHEMIST): Patient is on levothyroxine 50 mcg /day [...] visit. Assessment & Plan (03/13/2020 11:44 AM AGRICULTURAL CHEMIST): Patient has been on levothyroxine 100 mcg [...] on file Legal Sex Female 11:55 PM AGRICULTURAL CHEMIST Gender Identity Not on file Sexual Orientation [...] CREATININE RATIO, URINE Routine 04/14/2024 8:23 AM AGRICULTURAL CHEMIST Diabetic neuropathy, type I diabetes mellitus (HCC) [...] Read Routine (OP Routine) 03/10/2019 2:08 PM AGRICULTURAL CHEMIST Disorder of bone, unspecified Osteoarthritis, unspecified osteoarthritis [...] BLOOD ORDERABLES Fi nal Result BUD JUDIE [id number] [place] [address] * (ABNORMAL) Thyroid Function [place] (07/25/2024 11:00 AM CDT) TSH 6.81(H) 0.30 - 4.20 mcIUnit/mL Blood 07/25/2024 11:0 0 AM CDT 07/25/2024 8:16 PM CDT us Lauren Chase DO LAB [place] [address] [address] [place] [address] * (ABNORMAL) C-peptide (07/25/2024 11:00 AM CDT) C-peptide <0.02(L) 1.10 - 4.40 ng/mL Comment:Testing performed by : [facility], [address] [place]., [address] Blood 07/25/2024 11:0 0 AM CDT 07/26/2024 10:27 AM CDT Lauren Chase DO LAB BLOOD ORDERABLES Final Result Performing Organization Address City/[facility]/ZIP Co de Phone Number BUD DIMAS [address] [address] [place] [address] * (ABNORMAL) T4, free (07/25/2024 11:00 AM CDT) Free T4 0.85(L) 0.90 - 1.70 ng/dL Blood 07/25/2024 11:0 0 AM CDT 07/25/2024 8:16 PM CDT Lauren Chase DO LAB BLOOD ORDERABLES Final Result Performing Organization Address [facility] de Phone Number BUD DIMAS [address] [address] [place] [address] * (ABNORMAL) Hemoglobin A1c (07/25/2024 11:00 AM CDT) Hgb A1C 7.7(H) 4.0 - 5.6 % Estimated Average Glucose 174 mg/dL BUD DIMAS Comment: The ADA recommends reporting an estimated Average Glucose (eAG) with all Hemoglobin A1c results using the equation derived from a study of 507 normal and diabetic adults. Minority populations were underrepresented and children were not included. (Diabetes Care 31:8479-7061, 2008). The eAG is not equivalent to a fasting glucose. Blood 07/25/2024 11:0 0 AM CDT 07/25/2024 8:16 PM CDT Chitra Almanzar MD LAB BLOOD ORDERABLES Fi nal Result Performing Organization Address City/[facility]/ZIP Co de Phone Number BUD DIMAS [address] [address] [place] [employer] [address] * Lipid panel (07/25/2024 11:00 AM CDT) [...] BLOOD ORDERABLES Fi nal Result BUD DIMAS [address] [address] [place] [address] * (ABNORMAL) Comprehensive metabolic panel [...] BLOOD ORDERABLES Fi nal Result [address]UD DIMAS [address] [address] [place] [address] * (ABNORMAL) Albumin Creatinine Ratio, Urine (04/14/2024 8:23 AM AGRICULTURAL CHEMIST) Albumin Ur 954.1 mg/L Comment: Interpretive Data No reference range established. Current interpretive data was last revised 2018. Creatinine Ur 131.7 mg/dL [facility] Comment: Interpretive Data No reference range established. Current interpretive data was last revised 2018. Albumin Creatinine Ratio, Ur 724(H) 1 - 29 mg/g [facility] Urine 04/14/2024 8:23 AM AGRICULTURAL CHEMIST 04/14/2024 8:23 PM AGRICULTURAL CHEMIST Chitra Almanzar MD LAB URINE ORDERABLES Fi nal Result [facility] [address] [address] [place] [address] * (ABNORMAL) Diabetic Eye Exam (04/12/2024) us Generic External Data Provider HEALTH MAINTENANC E Final Result * Stool DNA - Cologuard (01/06/2022 7:55 AM CDT) Stool DNA - Cologuard Negative Negative [place] (CLIA #:[id number]) Comment: NEGATIVE TEST RESULT. A negative Cologuard [...] (Paola Santos al, N Engl J Med 2014;370(14):5969-3405) The normal value (reference range) for this assay is negative. COLOGUARD RE-SCREENING RECOMMENDATION: Periodic colorectal cancer screening is an important part of preventive healthcare for asymptomatic individuals at average risk for colorectal cancer. Following a negative Cologuard result, the Canadian Cancer Society and U.S. Multi-Society Task Force screening guidelines recommend a Cologuard re-screening interval of 3 years. References: Canadian Cancer Society Guideline for Colorectal Cancer Screening: https://www.cancer.org/cancer/pfqbg-xnsyje-utjpbv/jxzcgudsp-mkakqufbp-blblhjm/ac s-rec ommendations.html.; Danny HARMAN, Seymour BARBOUR, Tenisha DE LUNA, Colorectal Cancer Screening: Recommendations for Physicians and Patients from the U.S. Multi-Society Task Force on Colorectal Cancer Screening , Am J Gastroenterology 2017; 112:9215-2714. TEST DESCRIPTION: Composite algorithmic analysis of stool [...] Contreras. et al, N Engl J Med 2014;370(14):5157-8023.) Cologuard may produce a false negative or false positive result (no colorectal cancer or precancerous polyp present at colonoscopy follow up). A negative Cologuard test result does not guarantee the absence of CRC or advanced adenoma (pre-cancer). The current Cologuard screening interval is every 3 years. (Canadian Cancer Society and U.S. Multi-Society Task Force). Cologuard performance data in a 10,000 patient pivotal study using colonoscopy as the reference method can be accessed at the following location: www.[employer]/results. Additional description of the Cologuard test process, warnings and precautions can be found at www.colSlideShareuard.com. Stool 01/06/2022 7:55 AM CDT 01/07/2022 12:14 PM CDT Chitra Almanzar MD LAB BODY FLUIDS AND STO OLS ORDERABLES Final Result [employer] (CLIA #:[id number]) [place] [address] * Screening Mammogram Bilateral W Roly (12/25/2020 [...] There has been no suspicious interval change. Chitar Almanzar MD IMG MAMMO PROCEDURES Fi nal Result * DIABETES FOOT EXAM (06/06/2019) Diabetic Foot Exam Abnormal Historical Provider HEALTH MAINTENANCE Final Result * Dexa Axial Skeleton Bone Density 1 or 2 Site (03/10/2019 2:08 PM AGRICULTURAL CHEMIST) Anatomical Region Laterality Modality Body N/A Other 03/10/2019 4:05 PM AGRICULTURAL CHEMIST Impressions 03/10/2019 4:06 PM AGRICULTURAL CHEMIST Osteoporosis by WHO criteria. 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
== END 2024-10-03 14:35 | disposition left against medical advice (07) ==
PROVIDERS: PCP Internal Medicine
DX: R10.9 Unspecified abdominal pain (principal)
CPT/HCPCS: 99199